=== PATIENT | female | born 1965 | race Caucasian/White ===

== ENCOUNTER 2023-01-04 06:01 | Inpatient (IN) ==
--- NOTE | 2022-12-21 15:18 | PAT Medication Instructions ---
Medication Instructions Date of Service December 21, 2022 Home Medications albuterol sulfate 90 mcg/actuation breath activated powder inhaler 1 inh inhalation QID PRN Wheezing atenolol 25 mg tablet 25 mg PO BID cholestyramine (with sugar) 4 gram oral powder 4 g PO QID cyclobenzaprine 5 mg tablet 5 mg PO BID famotidine 40 mg tablet 40 mg PO HS fluticasone furoate 200 mcg-vilanterol 25 mcg/dose inhalation powder (Breo Ellipta) 1 inh inhalation DAILY gabapentin 800 mg tablet 800 mg PO QID hydrocodone 10 mg-acetaminophen 325 mg tablet 0.5 tab PO Q6H lisinopril 20 mg tablet 20 mg PO QAM metformin 500 mg tablet 500 mg PO BID mirtazapine 15 mg tablet 15 mg PO HS omeprazole 40 mg capsule,delayed release 40 mg PO QAM quetiapine 400 mg tablet (Seroquel) 400 mg PO TID zolpidem 10 mg tablet (Ambien) 10 mg PO HS Continue as directed fluticasone furoate 200 mcg-vilanterol 25 mcg/dose inhalation powder (Breo Ellipta) 1 inh inhalation DAILY STOP taking 24 hours before surgery cholestyramine (with sugar) 4 gram oral powder 4 g PO QID DO NOT take the morning of surgery cyclobenzaprine 5 mg tablet 5 mg PO BID lisinopril 20 mg tablet 20 mg PO QAM metformin 500 mg tablet 500 mg PO BID Take morning of surgery With a small sip of water, OTHERWISE NOTHING TO EAT OR DRINK AFTER MIDNIGHT: albuterol sulfate 90 mcg/actuation breath activated powder inhaler 1 inh inhalation QID PRN Wheezing (use if needed and bring to hospital day of surgery) gabapentin 800 mg tablet 800 mg PO QID hydrocodone 10 mg-acetaminophen 325 mg tablet 0.5 tab PO Q6H (if needed) atenolol 25 mg tablet 25 mg PO BID omeprazole 40 mg capsule,delayed release 40 mg PO QAM Take evening before surgery albuterol sulfate 90 mcg/actuation breath activated powder inhaler 1 inh inhalation QID PRN Wheezing (use if needed) zolpidem 10 mg tablet (Ambien) 10 mg PO HS gabapentin 800 mg tablet 800 mg PO QID hydrocodone 10 mg-acetaminophen 325 mg tablet 0.5 tab PO Q6H (if needed) atenolol 25 mg tablet 25 mg PO BID cyclobenzaprine 5 mg tablet 5 mg PO BID metformin 500 mg tablet 500 mg PO BID famotidine 40 mg tablet 40 mg PO HS mirtazapine 15 mg tablet 15 mg PO HS Other Notes CHECK WITH PRESCRIBING PROVIDER FOR INSTRUCTIONS: quetiapine 400 mg tablet (Seroquel) 400 mg PO TID If you have any questions please call us at [phone] or [phone] or [phone] or [phone]
--- NOTE | 2022-12-28 13:44 | Anesthesiology Consultation ---
Date of Service December 28, 2022 Assessment & Plan (1) Encounter for pre-operative examination: - Check BSG AM DOS - COVID screening: Per assessment on 12/28: No known COVID-19 positive contacts or current COVID-19 related symptoms. Travel screen negative. At surgeon discretion if preop Covid testing being done. Chart Review Chart Review: Acceptable Risk for Surgery and Patient seen in Pre Admission Testing Teaching & Discussion Pre-Anesthesia Teaching/Discussion Notes: Instructed NPO after midnight before surgery,except medications with 15 cc of water. Medication instructions provided according to the PAT guidelines. History Surgery Operation Date: 01/04/23 12:25 Proposed Procedures p L3-L5 Decompression and Fusion Spinal Cord Monitoring - David Dimas, Height/Weight Height: 5 ft 6 in Weight: 90.9 kg Allergies Allergy/AdvReac Type Severity Reaction Status Date / Time aspirin Allergy Intermediate eyes Verified 12/14/22 11:13 swell/ hives morphine Allergy Intermediate itching Verified 12/14/22 11:13 Medications Home Medications Medication Instructions Recorded Confirmed Last Taken albuterol sulfate 90 mcg/actuation 1 inh inhalation QID PRN Wheezing 12/14/22 12/14/22 Unknown breath activated powder inhaler atenolol 25 mg tablet 25 mg PO BID 12/14/22 12/14/22 Unknown cholestyramine (with sugar) 4 gram 4 g PO QID 12/14/22 12/14/22 Unknown oral powder cyclobenzaprine 5 mg tablet 5 mg PO BID 12/14/22 12/14/22 Unknown famotidine 40 mg tablet 40 mg PO HS 12/14/22 12/14/22 Unknown fluticasone furoate 200 1 inh inhalation DAILY 12/14/22 12/14/22 Unknown mcg-vilanterol 25 mcg/dose inhalation powder (Breo Ellipta) gabapentin 800 mg tablet 800 mg PO QID 12/14/22 12/14/22 Unknown hydrocodone 10 mg-acetaminophen 0.5 tab PO Q6H 12/14/22 12/14/22 Unknown 325 mg tablet lisinopril 20 mg tablet 20 mg PO QAM 12/14/22 12/14/22 Unknown metformin 500 mg tablet 500 mg PO BID 12/14/22 12/14/22 Unknown mirtazapine 15 mg tablet 15 mg PO HS 12/14/22 12/14/22 Unknown omeprazole 40 mg capsule,delayed 40 mg PO QAM 12/14/22 12/14/22 Unknown release quetiapine 400 mg tablet (Seroquel) 400 mg PO TID 12/14/22 12/14/22 Unknown zolpidem 10 mg tablet (Ambien) 10 mg PO HS 12/14/22 12/14/22 Unknown Past Medical History Medical History Anxiety Chronic obstructive pulmonary disease Depression Diverticular disease GERD (gastroesophageal reflux disease) Hypertension Insomnia Neuropathy Legs (occasional) Osteoarthritis Pre-diabetes Schizophrenia Exercise / Class Metabolic Activity II 4-5 Yardwork/Stairs/Walk up hill Past Surgical History Surgical History History of appendectomy History of section x1 History of cholecystectomy History of colon resection R/t diverticulitis History of colonoscopy History of endoscopic sinus surgery History of hysterectomy History of tonsillectomy History of tooth extraction Nausea and vomiting after administration of anesthetic agent Past Anesthesia History No Hx of Anesthesia Complications (except PONV) and No Family Hx of Anesthesia Complications History of PONV No Hx of Motion Sickness and History of PONV Social History Smoking Status: Current every day smoker tobacco type: cigarettes Smoking cigarettes per day: 1 PPD (tobacco use x approximately 40 years) Do You Dip or Chew Tobacco: No Hx Alcohol Use: No Hx Substance Use: No substance use type: does not use Review of Systems Patient denies chest pain, shortness of breath, dyspnea on exertion, fever, chills, cough, wheezing, palpitations. Physical Exam Vital Signs VITALS BP 132/86 P 89 TEMP 97.9 SP02 95%RA RESP 16 PHYSICAL Mildly decreased cervical extension range of motion. Full TMJ range of motion. TMD 3.5 finger breaths Mallampati Score 2 Dentition: full upper/lower dentures Lungs: clear throughout to auscultation Cardiac: regular rate and rhythm, no murmurs noted Spine: normal Carotid arteries: negative bruit Extremities: no LE edema Lab Results Anesthesia Preop Results Results Anesthesia Widget: WBC 12.34 K/ul (4.8-10.8) H 12/28/22 Hgb 14.2 g/dl (12.0-16.0) 12/28/22 Hct 40.1 % (37.0-47.0) 12/28/22 Plt 304 K/uL (130-400) 12/28/22 PT 10.9 Seconds (9.0-12.0) 12/28/22 PTT 27.9 Seconds (21.0-31.0) 12/28/22 INR 1.0 (0.9-1.1) 12/28/22 HA1c 6.1 % (4.5-5.6) H 12/28/22 Urine Color Yellow 12/28/22 Urine Appearance Clear (Clear) 12/28/22 Urine pH 6.0 (4.5-7.5) 12/28/22 Urine Specific [place] 1.005 (1.000-1.030) 12/28/22 Urine Protein Negative (Negative) 12/28/22 Urine Glucose (UA) Negative (Negative) 12/28/22 Urine Ketones Negative (Negative) 12/28/22 Urine Blood Negative (Negative) 12/28/22 Urine Nitrite Negative (Negative) 12/28/22 Urine Bilirubin Negative (Negative) 12/28/22 Urine Urobilinogen Negative (Negative) 12/28/22 Urine Leukocyte Esterase Negative (Negative) 12/28/22 Blood Type O Positive 12/28/22 Antibody Screen NEGATIVE 12/28/22 Testing Laboratory Results 12/22/22 SODIUM 134 POTASSIUM 4.6 CHLORIDE 103 CO2 21 BUN 5 CREATININE 0.56 GLUCOSE 79 Electrocardiogram Date: 12/17/22 SR with 88bpm. Short CT interval. "ECG without significant abnormalities" Chest X-Ray Date: 12/28/22 FINDINGS: Lung volumes are normal. There is no consolidation to suggest pneumonia. Minimal left basilar opacity favors atelectasis. There is no pneumothorax or pleural effusion. Cardiac size is normal. Mediastinal contours are normal. There is no evidence for pulmonary edema. IMPRESSION: No acute cardiopulmonary findings. COVID-19 Risk Screen Screening Information COVID-19 Screen Date: 12/28/22 Exposure 21 Days Family/Household +COVID Last 21 Days: No Exposure 10 Days Any COVID Exposure Last 10 Days: No Symptoms Last 10 Days Experienced COVID Sx Last 10 Days: No + COVID 0-90 Days COVID + in Last 0-90 Days: No
[~2023-01-04 06:01] MED LIST: ACETAMINOPHEN 500 MG TAB PO SCH; CeleBREX 200 MG CAP PO SCH; GABAPENTIN 600 MG DOSE PO SCH; LR 15ML/HR IV SCH; ceFAZolin 2000MG 2,000 MG/15 ML SYR IV SCH
[2023-01-04] MEDS ORDERED: LIDOCAINE 2% MPF LOCAL 5 ML VIAL ONE (06:35)
[2023-01-04] MEDS ORDERED: DEXAMETHASONE SOD INJ 4 MG/ML VIAL ONE (06:35)
[2023-01-04] MEDS ORDERED: ONDANSETRON INJ 2 MG/ML 2 ML VIAL ONE (06:35)
[2023-01-04] MEDS ORDERED: PROPOFOL IV EMULSION 10 MG/ML 20 ML VIAL IV ONE (06:35)
[2023-01-04] MEDS ORDERED: MIDAZOLAM HCL 1 MG/ML 2ML VIAL ONE (06:36)
[2023-01-04] MEDS ORDERED: HYDROmorphone INJ 2 MG/ML SYR/VIAL ONE (06:36)
[2023-01-04] MEDS ORDERED: fentaNYL citrate PF 100 MCG/2 ML VIAL ONE (06:36)
[2023-01-04] MEDS ORDERED: SCOPOLAMINE 1 MG TDSY TD ONE (07:01)
[2023-01-04] MEDS ORDERED: ePHEDrine sulfate 50 MG/ML AMP IV PRN (07:02)
[2023-01-04] MEDS ORDERED: ONDANSETRON INJ 2 MG/ML 2 ML VIAL IV PRN (07:02)
[2023-01-04] MEDS ORDERED: ATROPINE SULFATE 0.1 MG/ML 10ML SYR IV PRN (07:02)
[2023-01-04] MEDS ORDERED: FAMOTIDINE/PF 20 MG/2 ML VIAL IV ONE (07:26)
--- NOTE | 2023-01-04 07:29 | History & Physical Bridge Note ---
Date of Service January 04, 2023 History & Physical Bridge Note I have examined the patient, reviewed the History & Physical and in the interval since the performance of the History & Physical I have noted the following changes of clinical significance: no changes noted
--- NOTE | 2023-01-04 07:30 | History & Physical Report ---
Date of Service January 04, 2023 Assessment & Plan (1) Neurogenic claudication due to lumbar spinal stenosis: Plan: L3-L5 decompression and fusion History of Present Illness Chief Complaint: Back and bilateral leg pain Primary Care Provider: NO PCP This is a 57-year-old female who presents with chronic persistent back and leg pain after failing course of nonoperative care she is here for surgical intervention. Allergies Allergy/AdvReac Type Severity Reaction Status Date / Time aspirin Allergy Intermediate eyes Verified 01/04/23 06:36 swell/ hives morphine Allergy Intermediate itching Verified 01/04/23 06:36 Home Medications Medication Instructions Recorded Confirmed Type albuterol sulfate 90 mcg/actuation 1 inh inhalation QID PRN Wheezing 12/14/22 01/04/23 History breath activated powder inhaler atenolol 25 mg tablet 25 mg PO BID 12/14/22 01/04/23 History cholestyramine (with sugar) 4 gram 4 g PO QID 12/14/22 01/04/23 History oral powder famotidine 40 mg tablet 40 mg PO HS 12/14/22 01/04/23 History fluticasone furoate 200 1 inh inhalation DAILY 12/14/22 01/04/23 History mcg-vilanterol 25 mcg/dose inhalation powder (Breo Ellipta) gabapentin 800 mg tablet 800 mg PO QID 12/14/22 01/04/23 History hydrocodone 10 mg-acetaminophen 0.5 tab PO Q6H 12/14/22 01/04/23 History 325 mg tablet lisinopril 20 mg tablet 20 mg PO QAM 12/14/22 01/04/23 History metformin 500 mg tablet 500 mg PO BID 12/14/22 01/04/23 History mirtazapine 15 mg tablet 15 mg PO HS 12/14/22 01/04/23 History omeprazole 40 mg capsule,delayed 40 mg PO QAM 12/14/22 01/04/23 History release quetiapine 400 mg tablet (Seroquel) 400 mg PO TID 12/14/22 01/04/23 History zolpidem 10 mg tablet (Ambien) 10 mg PO HS 12/14/22 01/04/23 History Past Med/Surg History Medical History Anxiety Chronic obstructive pulmonary disease Depression Diverticular disease GERD (gastroesophageal reflux disease) Hypertension Insomnia Neuropathy Legs (occasional) Osteoarthritis Pre-diabetes Schizophrenia Surgical History History of appendectomy History of section x1 History of cholecystectomy History of colon resection R/t diverticulitis History of colonoscopy History of endoscopic sinus surgery History of hysterectomy History of tonsillectomy History of tooth extraction Nausea and vomiting after administration of anesthetic agent Social History Smoking Status: Current every day smoker Cigarettes Per Day: 1 PPD (tobacco use x approximately 40 years); Second Hand Exposure: No; Do You Dip or Chew Tobacco: No; Tobacco Cessation Education Requested by Patient: No Hx Alcohol Use: No Hx Substance Use: No Preferred Language: Serbian Communication Ability: Effective 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
[2023-01-04] MEDS ORDERED: ceFAZolin 330 MG/ML 1 GM VIAL ONE (07:36)
[2023-01-04] MEDS ORDERED: BUPIVACAINE/EPINEPHRINE 0.25% 1:200,000 30 ML VIAL ONE (07:36)
[2023-01-04] MEDS ORDERED: FLOSEAL HEMOSTATIC MATRIX 10ML TOP ONE (08:25)
[2023-01-04] MEDS ORDERED: SUGAMMADEX SODIUM 200 MG/2 ML VIAL IV ONE (09:31)
[2023-01-04] MEDS ORDERED: ROCURONIUM BROMIDE 10 MG/ML 5 ML VIAL IV ONE ×9 (09:31)
--- NOTE | 2023-01-04 09:47 | Operative Report ---
Post Operative Report Pre & Post Diagnosis Operation Date: 01/04/23 07:45 Pre-Op Diagnosis: (1) Neurogenic claudication due to lumbar spinal stenosis Post-Op Diagnosis: (1) Neurogenic claudication due to lumbar spinal stenosis I identified the patient and participated in the time-out.: Yes Procedure Operation Date: 01/04/23 07:45 Actual Procedures #1 lumbar decompression bilateral medial facetectomies and foraminotomies L2-L3, L3-L4 and L4-5. #2 posterior spinal fusion L3-L4 L4-5. #3 placement posterior instrumentation L3-L4 L4-L5. #4 interbody fusion L3-L4 L4-L5 #5 placement of Spira 14 x 26 mm cage at L3-L4 and L4-L5. #6 placement locally harvested morselized autograft posterior gutters. #7 placement of I factor bone of the talus in the interbody space and posterior lateral gutters. Surgeon David Dimas, DO Store Protection Specialist Christal Fonseca Estimated Blood Loss 50 Findings See Below The patient is 5 foot 6 weighing over 87 kg with BMI in excess of 31. Patient's body habitus did contribute to significant technical difficulty requiring her deeper retractors longer instruments in order to perform her procedure. This had at least 50% increased operative time. Specimens None Indications This is a 57-year-old female who presents above-mentioned diagnosis after failing course of nonoperative care is here for surgical intervention. Description of Procedure Patient met with identified informed consent obtained. Patient was then taken to the operative suite underwent patient placed in a prone position on the [place] table top Enrique frame. All bony prominences well-padded eyes inspected to ensure no external pressure placed upon them. This point lumbar spine was prepped and draped in a sterile fashion. Sharp dissection with the assistance of Bovie cautery performed down to and exposing the lamina and transverse processes of L3-L4-L5. From caudal to cephalad fashion complete laminectomy of L 4 L3 and partial laminectomy of L2 was performed including bilateral medial facetectomies and foraminotomies addressing significant spinal stenosis and facet hypertrophy. Obvious instability was noted. Pedicle screws then placed in L3-L4-L5 bilaterally with assistance of fluoroscopy and appropriately sized joan placed. By way of a transforaminal approach on the right complete discectomy of L4-L5 was performed endplates curetted to subcortical bleeding bone and a 14 x 26 mm Spira cage with I factor tapped the position. Then proceeded to L3-L4 and again by way of a transforaminal approach on the right complete discectomy performed endplates curetted to subcortically bone and a 14 x 26 mm Spira cage with I factor tapped in position. The rods were then compressed locked in final position bilaterally. The transverse processes of L3 L4-5 burred to subcortical bleeding bone. I factor amount of the test and locally harvested morselized autograft was placed in the posterior gutters. 15 round JOHN drain inserted. The incision was then closed with 1 Vicryl the fascia 2-0 Vicryl subcutaneously and 4 Monocryl for final skin closure. Steri-Strip sterile dressing placed. Patient awakened taken to PACU stable condition. Please note spinal cord monitoring was utilized at the procedure no changes noted. Lastly Christal Fonseca was present at the entire surgery involved the patient positioning complex portions of the surgery and final skin closure. I attest to the content of the Intraoperative Record and any orders documented therein. Any exceptions are noted below.
--- NOTE | 2023-01-04 10:13 | Fluoroscopy Report ---
INTRAOPERATIVE RADIOGRAPHS CLINICAL HISTORY: L3-L5 spinal fusion. Fluoro time: 24 seconds Ka,r: 21.37 mGy FINDINGS: 3 spot fluoroscopic views of the lumbar spine are presented. There has been discectomy at L 3-L4 and L4-L5 with laminectomy and posterior fusion at L3-L5. Interpedicular screws are present at a ll levels. The orthopedic hardware appears intact. IMPRESSION: Intraoperative images from lumbar spinal fusion surgery as above. Electronically signed by: Naga Camacho M.D. 01/04/2023 10:11 AM
[2023-01-04] MEDS: fentaNYL citrate PF 100 MCG/2 ML VIAL IV PRN ×4 (10:17→10:32)
[2023-01-04] MEDS: HYDROmorphone INJ 1 MG/ML SYRINGE IV PRN ×6 (10:37→17:44)
--- NOTE | 2023-01-04 10:52 | Anesthesiology Progress Note ---
Date of Service January 04, 2023 Anesthesia Post Procedure Vital Signs Vital Signs: Temp Pulse Resp BP Pulse Ox O2 Del Method O2 Flow Rate 01/04/23 10:45 97 H 12 128/67 98 Nasal Cannula 2 01/04/23 10:35 100 H 10 L 126/88 91 Room Air 01/04/23 10:25 96 H 12 112/94 100 Oxymask 5 01/04/23 10:15 96.8 F L 99 H 13 128/98 100 Oxymask 5 01/04/23 10:05 96.8 F L 100 H 13 122/87 100 Oxymask 5 01/04/23 06:34 98.1 F 94 H 20 127/71 93 Room Air Pain Intensity Lower Back: Pain Intensity: 4 Transfer of Care Handoff Completed per policy Notes Mental Status: alert / awake / arousable and participated in evaluation Patient Amnestic to Procedure: Yes Nausea / Vomiting: adequately controlled Pain: adequately controlled Airway Patency, RR, SpO2: stable & adequate BP & HR: stable & adequate Hydration State: stable & adequate Anesthetic Complications: no major complications apparent and Pt Satisfied with anesthetic care
[2023-01-04] MEDS ORDERED: LORazepam 2 MG/1 ML VIAL IV PRN (11:36)
[2023-01-04] MEDS ORDERED: ALUMINUM/MAGNESIUM SUSP 30 ML UDC PO PRN (11:36)
[2023-01-04] MEDS ORDERED: PROMETHAZINE HCL 12.5 MG in SODIUM CHLORIDE 0.9% 50 ML IV PRN (11:36)
[2023-01-04] MEDS ORDERED: HYDROmorphone INJ 0.5 MG/0.5 ML SYR IV PRN (11:36)
[2023-01-04] MEDS ORDERED: PHARMACY GLYCEMIC MGMT CONSULT PRN (11:36)
[2023-01-04] MEDS ORDERED: DO NOT ADMINISTER PNEUMOCOCCAL VACCINE PRN (11:36)
[2023-01-04] MEDS ORDERED: traMADol HCL 50 MG TABLET PO PRN (11:36)
[2023-01-04] MEDS ORDERED: bisacodyL 10 MG SUPP PR PRN (11:36)
[2023-01-04] MEDS ORDERED: ACETAMINOPHEN 1,000 MG/100 ML VIAL IV PRN (11:36)
[2023-01-04] MEDS ORDERED: LORazepam 0.5 MG TAB PO PRN (11:36)
[2023-01-04] MEDS ORDERED: FAMOTIDINE 20 MG TAB PO PRN (11:36)
[2023-01-04] MEDS ORDERED: hydrOXYzine HCl 25 MG TAB PO PRN (11:36)
[2023-01-04] MEDS ORDERED: ALBUTEROL HFA INHALER 8.5 GM INH PRN (11:36)
[2023-01-04] MEDS ORDERED: NALOXONE HCL 0.4 MG/1 ML VIAL/CARP IV PRN (11:36)
[2023-01-04] MEDS ORDERED: DO NOT ADMINISTER FLU VACCINE PRN (11:36)
[2023-01-04] MEDS ORDERED: diphenhydrAMINE Capsule 25 MG CAP PO PRN (11:36)
[2023-01-04] MEDS ORDERED: SOD PHOSPHATE/SOD BIPHOSPHATE ENEMA 132 ML BTL PR PRN (11:36)
[2023-01-04] MEDS: SODIUM CHLORIDE 0.9% 1000ML 1,000 ML IV SCH (11:51)
[2023-01-04] MEDS ORDERED: LANTUS PER UNIT CHARGE SC STA (12:10)
[2023-01-04] MEDS ORDERED: GLUCOSE 40% GEL 15 GM TUBE PO PRN (12:15)
[2023-01-04] MEDS ORDERED: CARBOHYDRATES FOR HYPOGLYCEMIA PO PRN (12:15)
[2023-01-04] MEDS ORDERED: GLUCOSE 10 TAB/TUBE PO PRN (12:15)
[2023-01-04] MEDS ORDERED: DEXTROSE 50% 50 ML SYRINGE IV PRN (12:15)
[2023-01-04] MEDS ORDERED: GLUCAGON FOR INJ 1 MG VIAL IM PRN (12:15)
[2023-01-04] MEDS: NICOTINE 14 MG/24 HR PATCH TD SCH (12:33)
[2023-01-04] MEDS: QUEtiapine FUMARATE 200 MG TAB PO SCH ×2 (12:34→19:52)
[2023-01-04] MEDS: GABAPENTIN 800 MG TAB PO SCH ×3 (12:34→19:49)
[2023-01-04] MEDS: CHOLESTYRAMINE LIGHT 4 GM PKT PO SCH ×4 (12:34→21:04)
--- NOTE | 2023-01-04 12:40 | Hospitalist Consultation ---
Date of Consultation January 04, 2023 Assessment & Plan (1) Neurogenic claudication due to lumbar spinal stenosis: POD#0 L3-L5 decompression and fusion by Dr. Dimas Activity and wound care orders as per ortho Pain control with bowel regimen PT/OT Monitor H/H for acute blood loss anemia and transfuse blood products PRN EBL 50cc (2) Hypertension: BP controlled, continue atenolol and lisinopril (3) Pre-diabetes: Hgb A1c 6.1 12/2022 Hold metformin Glycemic pharmacy consulted by primary service (4) Tobacco abuse: Nicotine patch offered, patient declined (5) Anxiety: (6) Depression: Stable, continue home meds (7) GERD (gastroesophageal reflux disease): Continue PPI and H2 jeannette DVT PROPHYLAXIS Teds/SCDs as per spine Ortho Patient seen in collaboration with Dr. Ang. Thank you for this consultation. We will follow the patient with you during their hospital stay. You can reach a member of the [facility] Hospitalist Team 29/03 via the [facility] Hospitalist role in [place] [employer]. I spent a total of 45 minutes coordinating, documenting, and providing care for this patient excluding time spent in the performance of separately billed services. This included personally reviewing all current laboratories and imaging studies, medication reconciliation, outpatient chart review, and discussion with specialists. Supervising Physician Co-Signing Physician Notes Neuro: AAOx3, Perrla HEENT: head atraumatic, Normocephalic CV: S1/S2 +.no murmurs. Resp: Lungs air entry present bilaterally . no crackles. GI: Abdomen mildly distended Musculoskeletal:no pain dowell catheter+ Skin: (-) rashes , (-) erythema. scds in place Psych: anxious patient is in pain post proceedure L3-L5 spine procedure and is requesting pain med she also wants her cholestyramine to be given now. will continue to follow this patient with the orthopedic team. History of Present Illness Reason for Consultation: Postop medical management Requesting Physician: Dr. Dimas Attending Physician: David Dimas DO History of Present Illness 57-year-old female with PMH HTN, prediabetes, anxiety, depression, tobacco abuse, COPD, GERD, and other problems listed below who is s/p L3-L5 decompression and fusion today by Dr. Dimas. Postoperatively, the patient is reporting pain #7/10. She denies numbness, tingling, weakness to lower extremities. No chest pain or shortness of breath. Denies lightheadedness and dizziness. No abdominal pain or nausea. Dowell catheter is in place draining clear yellow urine. Allergies Allergy/AdvReac Type Severity Reaction Status Date / Time aspirin Allergy Intermediate eyes Verified 01/04/23 06:36 swell/ hives morphine Allergy Intermediate itching Verified 01/04/23 06:36 Home Medications Medication Instructions Recorded Confirmed Type albuterol sulfate 90 mcg/actuation 1 inh inhalation QID PRN Wheezing 12/14/22 01/04/23 History breath activated powder inhaler atenolol 25 mg tablet 25 mg PO BID 12/14/22 01/04/23 History cholestyramine (with sugar) 4 gram 4 g PO QID 12/14/22 01/04/23 History oral powder famotidine 40 mg tablet 40 mg PO HS 12/14/22 01/04/23 History fluticasone furoate 200 1 inh inhalation DAILY 12/14/22 01/04/23 History mcg-vilanterol 25 mcg/dose inhalation powder (Breo Ellipta) gabapentin 800 mg tablet 800 mg PO QID 12/14/22 01/04/23 History hydrocodone 10 mg-acetaminophen 0.5 tab PO Q6H 12/14/22 01/04/23 History 325 mg tablet lisinopril 20 mg tablet 20 mg PO QAM 12/14/22 01/04/23 History metformin 500 mg tablet 500 mg PO BID 12/14/22 01/04/23 History mirtazapine 15 mg tablet 15 mg PO HS 12/14/22 01/04/23 History omeprazole 40 mg capsule,delayed 40 mg PO QAM 12/14/22 01/04/23 History release quetiapine 400 mg tablet (Seroquel) 400 mg PO TID 12/14/22 01/04/23 History zolpidem 10 mg tablet (Ambien) 10 mg PO HS 12/14/22 01/04/23 History Patient History Medical History (Updated 01/04/23 @ 12:36 by ILIANA Rader) Anxiety Chronic obstructive pulmonary disease Depression Diverticular disease GERD (gastroesophageal reflux disease) Hypertension Insomnia Neuropathy Legs (occasional) Osteoarthritis Pre-diabetes Schizophrenia Tobacco abuse Surgical History History of appendectomy History of section x1 History of cholecystectomy History of colon resection R/t diverticulitis History of colonoscopy History of endoscopic sinus surgery History of hysterectomy History of tonsillectomy History of tooth extraction Nausea and vomiting after administration of anesthetic agent Social History Smoking Status: Current every day smoker Cigarettes Per Day: 1 PPD (tobacco use x approximately 40 years); Second Hand Exposure: No; Do You Dip or Chew Tobacco: No; Tobacco Cessation Education Requested by Patient: No Hx Alcohol Use: No Hx Substance Use: No Preferred Language: Faroese Communication Ability: Effective 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 Ang's addendum for physical exam Results & Data Results & Data Vital Signs (Past 12 Hours) Vital Signs Temp Pulse Resp BP Pulse Ox O2 Del Method O2 Flow Rate 01/04/23 11:54 36.7 C 102 H 16 111/75 97 Nasal Cannula 2 01/04/23 11:45 36.9 C 101 H 110/78 93 Nasal Cannula 2 01/04/23 11:05 98 H 13 104/77 98 Nasal Cannula 2 01/04/23 10:55 36.2 C L 97 H 12 113/76 98 Nasal Cannula 2 01/04/23 10:45 97 H 12 128/67 98 Nasal Cannula 2 01/04/23 10:35 100 H 10 L 126/88 91 Room Air 01/04/23 10:25 96 H 12 112/94 100 Oxymask 5 01/04/23 10:15 36 C L 99 H 13 128/98 100 Oxymask 5 01/04/23 10:05 36 C L 100 H 13 122/87 100 Oxymask 5 01/04/23 06:34 36.7 C 94 H 20 127/71 93 Room Air
--- NOTE | 2023-01-04 13:21 | Pharmacy Report ---
Pharmacy Glycemic Short Note 2 - Date of Service January 04, 2023 - Glycemic Short BSG Results (Last 24 hours): 01/04/23 01/04/23 01/04/23 06:47 10:04 12:00 POC Glucose 140 H 137 H 158 H OUTPATIENT ANTIDIABETIC REGIMEN: * Metformin 500 mg PO BIDM * HbA1c: 6.1% (12/28/22) ASSESSMENT: * 57 yo F admitted postoperatively on 01/04/23 following a L3-L5 decompression and fusion. Pharmacy has been consulted to assist with inpatient glycemic management. Patient is a well controlled Type 2 diabetic as an outpatient. Please refer to outpatient regimen and most recent HbA1c above. * Preop BSG was 140 mg/dL while postop BSGs were 137-158 mg/dL. Received 12 mg of IV dexamethasone intraoperatively. Will continue on 6 mg of IV dexamethasone daily for the next 3 days. Ordered a T2DM diet. Will monitor how patient tolerates diet postop. * Giving a full weight/stress of 2 basal dose now to cover steroids. Reassess basal dose in the AM. Starting bolus based on weight/stress of 3. Added an overnight check for tonight. PLAN FOR INPATIENT GLYCEMIC CONTROL: * Hold outpatient oral diabetes medications * Basal insulin * Lantus 30 units SC x 1 * Bolus insulin * NovoLog per scale ACHS or Q6hrs while NPO * Goal Range: Low 110 mg/dL - High 140 mg/dL * Correction Factor: 20 mg/dL/unit * Nutritional / Prandial insulin per carb ratio of 1 unit per 7 grams CHO consumed
[2023-01-04] MEDS ORDERED: CHOLESTYRAMINE LIGHT 4 GM PKT PO SCH (14:00)
[2023-01-04] MEDS: INSULIN ASPART PER UNIT CHARGE SC SCH ×3 (14:18→21:33)
[2023-01-04] MEDS: oxyCODONE HCL IR 5 MG TAB (IMMEDIATE RELEASE) PO PRN ×2 (14:34→19:45)
[2023-01-04] MEDS: CHECK SCOPOLAMINE PATCH PLACEMENT SCH (16:43)
[2023-01-04] MEDS: ceFAZolin 2000MG 2,000 MG/15 ML SYR IV SCH (17:43)
[2023-01-04] MEDS: DOCUSATE SODIUM/SENNA 50/8.6MG TAB PO SCH (19:50)
[2023-01-04] MEDS: FAMOTIDINE 40 MG TABLET PO SCH (19:51)
[2023-01-04] MEDS: MIRTAZAPINE TAB 15 MG TAB PO SCH (19:51)
[2023-01-04] MEDS: ZOLPIDEM TARTRATE 10 MG TAB PO SCH (20:01)
[2023-01-04] MEDS: ATENOLOL 25 MG TABLET PO SCH (21:04)
[2023-01-05] MEDS: ceFAZolin 2000MG 2,000 MG/15 ML SYR IV SCH (01:07)
[2023-01-05] MEDS: oxyCODONE HCL IR 5 MG TAB (IMMEDIATE RELEASE) PO PRN ×4 (01:07→17:58)
[2023-01-05] MEDS: SODIUM CHLORIDE 0.9% 1000ML 1,000 ML IV SCH (01:08)
[2023-01-05] MEDS: CHECK SCOPOLAMINE PATCH PLACEMENT SCH ×3 (01:51→17:41)
[2023-01-05] MEDS ORDERED: INSULIN ASPART PER UNIT CHARGE SC ONE (02:00)
[2023-01-05] MEDS: HYDROmorphone INJ 1 MG/ML SYRINGE IV PRN ×2 (02:34→05:49)
[2023-01-05] MEDS: POLYETHYLENE (MIRALAX) 17 GM PACK PO SCH ×3 (04:59→17:26)
[2023-01-05 08:10] LABS: Hematocrit (blood only) 38.1 % (37.0-47.0); Mean Corpuscular Hemoglobin 32.2 pg (25.0-34.0); Mean Corpuscular Hgb Conc 34.1 g/dL (32.0-36.0); Mean Corpuscular Volume 94.3 fL (80.0-100.0); Platelet Count 256 K/uL (130-400); RDW Coefficient of Variation 13.2 % (11.5-14.5); RDW Standard Deviation 45.8 fL (36.4-46.3); Red Blood Count 4.04 M/uL (4.20-5.40); White Blood Count 15.97 K/ul (4.8-10.8)
[2023-01-05] MEDS: dexAMETHasone 6 MG in SYRINGE 0 ML IV SCH (08:15)
[2023-01-05] MEDS: CHOLESTYRAMINE LIGHT 4 GM PKT PO SCH ×4 (08:16→22:54)
[2023-01-05] MEDS: QUEtiapine FUMARATE 200 MG TAB PO SCH ×4 (08:16→20:51)
[2023-01-05] MEDS: GABAPENTIN 800 MG TAB PO SCH ×4 (08:16→20:51)
[2023-01-05] MEDS: PANTOprazole 40 MG TAB PO SCH (08:17)
[2023-01-05] MEDS: FLUTICASONE/VILANTEROL 200/25MCG 14 PUFFS/INHALER INH SCH (08:18)
[2023-01-05] MEDS: NICOTINE 14 MG/24 HR PATCH TD SCH (08:18)
[2023-01-05 08:31] LABS: Calcium 8.7 mg/dl (8.6-10.3); Potassium 3.8 mmol/L (3.5-5.1)
[2023-01-05 08:37] LABS: BUN Creatinine Ratio 7.9 (10-20); Creatinine Clr Calc Pharmacy 111.2 ml/min; Est GFR (African American) 116.2 ml/min; Est GFR (Non-African American) 100.3 ml/min
[2023-01-05 08:51] LABS: Basophils # (auto) 0.09 K/uL (0-0.2); Basophils % (auto) 0.6 %; Eosinophils # (auto) 0.07 K/uL (0-0.50); Eosinophils % (auto) 0.4 %; Immature Granulocytes # (auto) 0.08 K/uL (0.01-0.20); Immature Granulocytes % (auto) 0.5 %; Lymphocytes # (auto) 5.38 K/uL (1.2-3.4); Lymphocytes % (auto) 33.7 %; Monocytes # (auto) 1.75 K/uL (0.11-0.59); Neutrophils % (auto) 53.8 %
[2023-01-05] MEDS ORDERED: lisinopril 20 MG TAB PO SCH (09:00)
[2023-01-05] MEDS: LANTUS PER UNIT CHARGE SC SCH (09:03)
[2023-01-05] MEDS: INSULIN ASPART PER UNIT CHARGE SC SCH ×4 (09:03→21:34)
[2023-01-05] MEDS: ATENOLOL 25 MG TABLET PO SCH (09:04)
--- NOTE | 2023-01-05 10:40 | Pharmacy Report ---
Pharmacy Glycemic Short Note 2 - Date of Service January 05, 2023 - Glycemic Short BSG Results (Last 24 hours): 01/04/23 01/04/23 01/04/23 12:00 16:51 20:47 Glucose POC Glucose 158 H 150 H 111 H 01/05/23 01/05/23 01/05/23 03:26 07:56 07:57 Glucose 118 H POC Glucose 113 H 111 H OUTPATIENT ANTIDIABETIC REGIMEN: * Metformin 500 mg PO BIDM * HbA1c: 6.1% (12/28/22) ASSESSMENT: 01/05: * Lorie received 39 units of insulin postop yesterday, 30 units basal + 9 units bolus. BSGs were: [phone] mg/dL. * Fasting BSG controlled at 111 mg/dL this AM. Tolerating diet. * Given reduced dose of IV dexamethasone that will be administered over the next 3 days, will empirically reduced basal dose. Empirically reduced bolus parameters as well given trend down in BSG last evening. 01/04: * 57 yo F admitted postoperatively on 01/04/23 following a L3-L5 decompression and fusion. Pharmacy has been consulted to assist with inpatient glycemic management. Patient is a well controlled Type 2 diabetic as an outpatient. Please refer to outpatient regimen and most recent HbA1c above. * Preop BSG was 140 mg/dL while postop BSGs were 137-158 mg/dL. Received 12 mg of IV dexamethasone intraoperatively. Will continue on 6 mg of IV dexamethasone daily for the next 3 days. Ordered a T2DM diet. Will monitor how patient tolerates diet postop. * Giving a full weight/stress of 2 basal dose now to cover steroids. Reassess basal dose in the AM. Starting bolus based on weight/stress of 3. Added an overnight check for tonight. PLAN FOR INPATIENT GLYCEMIC CONTROL: * Hold outpatient oral diabetes medications * Basal insulin * Lantus 20 units SC daily x 3 days (Give with IV Dexamethasone - hold and call pharmacy if dexamethasone held/discontinued) * Bolus insulin * NovoLog per scale ACHS or Q6hrs while NPO * Goal Range: Low 110 mg/dL - High 140 mg/dL * Correction Factor: 25 mg/dL/unit * Nutritional / Prandial insulin per carb ratio of 1 unit per 8 grams CHO consumed
--- NOTE | 2023-01-05 11:46 | Hospitalist Progress Note ---
Date of Service January 05, 2023 Assessment & Plan (1) Neurogenic claudication due to lumbar spinal stenosis: Plan: POD#1 L3-L5 decompression and fusion by Dr. Dimas Labs reviewed; WBC count elevated to 15.97. [id number]; stable. Patient noted to have 1 spike of fever at 11:25 AM today; 38.5 C. Continue pain control, bowel regimen PT OT eval. If patient has another episode of fever( > 38C) ; will obtain blood culture, chest x-ray and urinalysis. Hold off antibiotic for now; monitor for fever. (2) Hypertension: Plan: Blood pressure noted to be on lower side; Hold off on atenolol and lisinopril for today. (3) Pre-diabetes: Plan: Hgb A1c 6.1 12/2022 Hold metformin Glycemic pharmacy consulted by primary service (4) Tobacco abuse: Plan: Nicotine patch offered, patient declined (5) Anxiety: (6) Depression: Plan: On Mirtazapine; continue (7) GERD (gastroesophageal reflux disease): Plan: Continue PPI and H2 jeannette DVT PROPHYLAXIS Teds/SCDs as per spine Ortho Thank you for this consultation. We will follow the patient with you during their hospital stay. You can reach a member of the [facility] Hospitalist Team 29/03 via the [facility] role in [place] [employer]. Please note the above document was generated using voice recognition software. It may contain grammatical, syntax or spelling errors. Any formal questions or concerns about the content, text or information contained within the body of this dictation should be directly addressed to the provider for clarification Admission and Anticipated Discharge Date Admission Date: January 04, 2023 Subjective Patient seen and examined at bedside. She was just moved from bed to the chair and appears to be tired and in pain. Review of Systems Review of Systems: All systems reviewed & are unremarkable except as noted in Subjective Physical Exam Physical Exam: Constitutional: Awake, reports significant pain on operating site. Respiratory: normal respiratory effort, lungs clear to auscultation, no wheeze, rales, rhonchi. Normal insp/exp effort, no accessory muscle use Cardiovascular: RRR, no murmur, no edema Vessels: no JVD or carotid bruit Chest: normal inspection of chest Abdomen: normal bowel sounds, soft, nontender, no hepatosplenomegaly Musculoskeletal: no cyanosis or clubbing, extremities motor strength 5/5. Back incision clean dry and intact. Skin: no rashes, warm and dry normal turgor Neurologic: PERRL, EOMI, accommodation nl, no face palsy, no dysarthria CN's II- XI intact bilaterally and moves all extremities Psychiatric: A+Ox3, euthymic affect Lymphatic: no cervical or axillary lymphadenopathy : deferred Results & Data Results & Data Vital Signs (Past 12 Hours) Vital Signs Temp Pulse Pulse Resp BP BP Pulse Ox 01/05/23 11:25 92 01/05/23 11:23 38.5 C H 105 H 104/73 87 L 01/05/23 08:05 01/05/23 07:34 37.0 C 109 H 16 107/78 91 01/05/23 03:03 36.7 C 89 18 106/82 96 O2 Del Method O2 Flow Rate 01/05/23 11:25 Nasal Cannula 2 01/05/23 11:23 Room Air 01/05/23 08:05 Room Air 01/05/23 07:34 Room Air 01/05/23 03:03 Room Air Laboratory Results Laboratory Results WBC 15.97 K/ul (4.8-10.8) H 01/05/23 07:56 RBC 4.04 M/uL (4.20-5.40) L 01/05/23 07:56 Hgb 13.0 g/dl (12.0-16.0) 01/05/23 07:56 Hct 38.1 % (37.0-47.0) 01/05/23 07:56 MCV 94.3 fL (80.0-100.0) 01/05/23 07:56 MCH 32.2 pg (25.0-34.0) 01/05/23 07:56 MCHC 34.1 g/dL (32.0-36.0) 01/05/23 07:56 RDW Std Deviation 45.8 fL (36.4-46.3) 01/05/23 07:56 RDW Coeff of Carmela 13.2 % (11.5-14.5) 01/05/23 07:56 Plt Count 256 K/uL (130-400) 01/05/23 07:56 MPV 9.0 fL (9.4-12.4) L 01/05/23 07:56 Immature Gran % (Auto) 0.5 % 01/05/23 07:56 Neut % (Auto) 53.8 % 01/05/23 07:56 Lymph % (Auto) 33.7 % 01/05/23 07:56 [place] % (Auto) 11.0 % 01/05/23 07:56 Eos % (Auto) 0.4 % 01/05/23 07:56 Baso % (Auto) 0.6 % 01/05/23 07:56 Neut # (Auto) 8.60 K/uL (1.40-6.50) H 01/05/23 07:56 Lymph # (Auto) 5.38 K/uL (1.2-3.4) H 01/05/23 07:56 [place] # (Auto) 1.75 K/uL (0.11-0.59) H 01/05/23 07:56 Eos # (Auto) 0.07 K/uL (0-0.50) 01/05/23 07:56 Baso # (Auto) 0.09 K/uL (0-0.2) 01/05/23 07:56 Immature Gran # (Auto) 0.08 K/uL (0.01-0.20) 01/05/23 07:56 Sodium 137 mmol/L (136-145) 01/05/23 07:56 Potassium 3.8 mmol/L (3.5-5.1) 01/05/23 07:56 Chloride 103 mmol/L (98-107) 01/05/23 07:56 Carbon Dioxide 27 mmol/L (21-32) 01/05/23 07:56 Anion Gap 7 (3-11) 01/05/23 07:56 BUN 5 mg/dl (6-23) L 01/05/23 07:56 Creatinine 0.63 mg/dl (0.6-1.2) 01/05/23 07:56 Est Cr Clr Drug Dosing 111.2 ml/min 01/05/23 07:56 Est GFR ( Amer) 116.2 ml/min 01/05/23 07:56 Est GFR (Non-Af Amer) 100.3 ml/min 01/05/23 07:56 BUN/Creatinine Ratio 7.9 (10-20) L 01/05/23 07:56 Glucose 118 mg/dl (70-99(Fasting)) H 01/05/23 07:56 POC Glucose 111 mg/dl (70-99) H 01/05/23 07:57 Calcium 8.7 mg/dl (8.6-10.3) 01/05/23 07:56 SARS-CoV-2, RNA, NAAT NEGATIVE (NEGATIVE) 01/04/23 06:18 Blood Type O Positive 01/04/23 07:04 Antibody Screen NEGATIVE 01/04/23 07:04 Crossmatch See Detail 01/04/23 07:04 Impressions Lumbar Spine X-Ray 01/04/23 07:45 INTRAOPERATIVE RADIOGRAPHS CLINICAL HISTORY: L3-L5 spinal fusion. Fluoro time: 24 seconds Ka,r: 21.37 mGy FINDINGS: 3 spot fluoroscopic views of the lumbar spine are presented. There has been discectomy at L3-L4 and L4-L5 with laminectomy and posterior fusion at L3- L5. Interpedicular screws are present at all levels. The orthopedic hardware appears intact. IMPRESSION: Intraoperative images from lumbar spinal fusion surgery as above. Electronically signed by: Naga Camacho M.D. 01/04/2023 10:11 AM
--- NOTE | 2023-01-05 12:54 | Orthopedic Progress Note ---
Date of Service January 05, 2023 Assessment & Plan (1) Neurogenic claudication due to lumbar spinal stenosis: Plan: This time we will continue physical therapy monitor her JOHN output hopefully discharge home in the next few days. Admission and Anticipated Discharge Date Admission Date: January 04, 2023 Subjective Back pain controlled leg pain improved Physical Exam Physical Exam: Patient is currently in bed. She is comfortable. Is constricted testing. Results & Data Vital Signs (Past 12 Hours) Vital Signs Temp Pulse Pulse Resp BP BP Pulse Ox 01/05/23 12:30 38.4 C H 102 H 18 101/71 94 01/05/23 11:25 92 01/05/23 11:23 38.5 C H 105 H 104/73 87 L 01/05/23 08:05 01/05/23 07:34 37.0 C 109 H 16 107/78 91 01/05/23 03:03 36.7 C 89 18 106/82 96 O2 Del Method O2 Flow Rate 01/05/23 12:30 Nasal Cannula 2 01/05/23 11:25 Nasal Cannula 2 01/05/23 11:23 Room Air 01/05/23 08:05 Room Air 01/05/23 07:34 Room Air 01/05/23 03:03 Room Air
[2023-01-05] MEDS: ACETAMINOPHEN 500 MG TAB PO PRN (13:10)
[2023-01-05] MEDS ORDERED: SODIUM CHLORIDE 0.9% 1000ML 500 ML IV ONE (14:18)
[2023-01-05] MEDS ORDERED: SODIUM CHLORIDE 0.9% 1000ML 2,000 ML IV ONE (14:31)
[2023-01-05] MEDS ORDERED: VANCOMYCIN HCL 1,750 MG in SODIUM CHLORIDE 0.9% 500 ML IV STA (14:55)
[2023-01-05] MEDS ORDERED: PIPERACILLIN/TAZOBACTAM 4.5 GM (over 30 mins) IV STA (14:55)
[2023-01-05] MEDS ORDERED: VANCOMYCIN CONSULT ACTIVE PRN (15:04)
--- NOTE | 2023-01-05 15:14 | Pharmacy Report ---
Pharmacy PK ABX Note - Date of Service January 05, 2023 - Assessment and Plan Assessment 57 year old F receiving Vancomycin and Zosyn empirically for treatment of postoperative fevers. * Day #1 of antimicrobial therapy. * POD #1 s/p L3-L5 decompression and fusion. * Developed fever of 38.5oC today. Hypotensive and tachycardic. Leukocytosis of 16k. * Blood cultures pending. Plan Vancomycin * Loading dose: 1750 mg IV x 1 * Maintenance dose: 1250 mg IV every 12 hours * Regimen is predicted to achieve target AUC/MAUREEN of 400-600 mg/L.hr * No level will be ordered unless therapy extends beyond 48 hours. Pharmacy will continue to follow and will adjust dose/frequency as necessary. Thank you. Pharmacy has transitioned to AUC monitoring for vancomycin. AUC/MAUREEN is the preferred PK/PD target and is associated with decreased risk of nephrotoxicity compared to traditional trough targets.
[2023-01-05] MEDS ORDERED: VANCOMYCIN HCL 1,250 MG in SODIUM CHLORIDE 0.9% 250 ML IV SCH (15:30)
[2023-01-05 16:05] LABS: Calcium 7.9 mg/dl (8.6-10.3); Potassium 3.6 mmol/L (3.5-5.1)
[2023-01-05 16:11] LABS: BUN Creatinine Ratio 8.5 (10-20); Creatinine Clr Calc Pharmacy 118.8 ml/min; Est GFR (African American) 118.8 ml/min; Est GFR (Non-African American) 102.5 ml/min
[2023-01-05 16:16] LABS: Basophils # (auto) 0.06 K/uL (0-0.2); Basophils % (auto) 0.4 %; Hematocrit (blood only) 30.7 % (37.0-47.0); Hemoglobin 10.8 g/dl (12.0-16.0); Immature Granulocytes # (auto) 0.09 K/uL (0.01-0.20); Immature Granulocytes % (auto) 0.6 %; Lymphocytes # (auto) 2.81 K/uL (1.2-3.4); Mean Corpuscular Hemoglobin 32.4 pg (25.0-34.0); Mean Corpuscular Hgb Conc 35.2 g/dL (32.0-36.0); Mean Corpuscular Volume 92.2 fL (80.0-100.0); Mean Platelet Volume 9.6 fL (9.4-12.4); Monocytes # (auto) 1.48 K/uL (0.11-0.59); Neutrophils # (auto) 10.38 K/uL (1.40-6.50); Platelet Count 245 K/uL (130-400); RDW Coefficient of Variation 13.2 % (11.5-14.5); RDW Standard Deviation 44.8 fL (36.4-46.3); Red Blood Count 3.33 M/uL (4.20-5.40); White Blood Count 14.82 K/ul (4.8-10.8)
[2023-01-05] MEDS ORDERED: SODIUM CHLORIDE 0.9% 1000ML 1,000 ML IV ONE (17:19)
[2023-01-05] MEDS: LACTATED RINGER'S 1,000 ML IV SCH (18:19)
[2023-01-05] MEDS: DOCUSATE SODIUM/SENNA 50/8.6MG TAB PO SCH (20:50)
[2023-01-05] MEDS: MIRTAZAPINE TAB 15 MG TAB PO SCH (20:50)
[2023-01-05] MEDS: FAMOTIDINE 40 MG TABLET PO SCH (20:50)
[2023-01-05] MEDS: ZOLPIDEM TARTRATE 10 MG TAB PO SCH (20:51)
[2023-01-05] MEDS: PIPERACILLIN/TAZOBACTAM 4.5 GM in DEXTROSE 5% 100 ML IV SCH (21:25)
[2023-01-06] MEDS ORDERED: VANCOMYCIN HCL 1,250 MG in SODIUM CHLORIDE 0.9% 250 ML IV SCH
[2023-01-06] MEDS: ACETAMINOPHEN 500 MG TAB PO PRN ×2 (00:01→22:08)
[2023-01-06] MEDS: POLYETHYLENE (MIRALAX) 17 GM PACK PO SCH ×5 (00:08→23:22)
[2023-01-06] MEDS: CHECK SCOPOLAMINE PATCH PLACEMENT SCH ×4 (00:08→23:20)
[2023-01-06] MEDS: VANCOMYCIN HCL 1,250 MG in SODIUM CHLORIDE 0.9% 250 ML IV SCH ×2 (01:25→12:11)
[2023-01-06] MEDS ORDERED: MAGNESIUM SULFATE / D5W 1 GM/100 ML BAG IV ONE ×2 (01:35→02:46)
[2023-01-06] MEDS ORDERED: POTASSIUM CHLORIDE PWD 20 MEQ PACK PO STA (01:35)
[2023-01-06 01:57] LABS: Magnesium 1.5 mg/dl (1.7-2.4)
[2023-01-06] MEDS: LACTATED RINGER'S 1,000 ML IV SCH ×3 (03:25→22:38)
[2023-01-06] MEDS: PIPERACILLIN/TAZOBACTAM 4.5 GM in DEXTROSE 5% 100 ML IV SCH ×3 (04:35→20:18)
[2023-01-06] MEDS ORDERED: SODIUM CHLORIDE 0.9% 1000ML 1,000 ML IV ONE (04:42)
[2023-01-06 05:59] LABS: Basophils # (auto) 0.05 K/uL (0-0.2); Basophils % (auto) 0.4 %; Eosinophils # (auto) 0.02 K/uL (0-0.50); Eosinophils % (auto) 0.2 %; Hemoglobin 9.8 g/dl (12.0-16.0); Immature Granulocytes # (auto) 0.06 K/uL (0.01-0.20); Immature Granulocytes % (auto) 0.5 %; Lymphocytes % (auto) 29.6 %; Mean Corpuscular Hemoglobin 31.9 pg (25.0-34.0); Mean Corpuscular Hgb Conc 33.8 g/dL (32.0-36.0); Mean Corpuscular Volume 94.5 fL (80.0-100.0); Mean Platelet Volume 9.2 fL (9.4-12.4); Monocytes # (auto) 1.37 K/uL (0.11-0.59); Monocytes % (auto) 11.3 %; Neutrophils # (auto) 7.07 K/uL (1.40-6.50); Platelet Count 203 K/uL (130-400); RDW Coefficient of Variation 13.5 % (11.5-14.5); RDW Standard Deviation 46.9 fL (36.4-46.3); Red Blood Count 3.07 M/uL (4.20-5.40); White Blood Count 12.17 K/ul (4.8-10.8)
[2023-01-06] MEDS ORDERED: LACTATED RINGER'S 1,000 ML IV SCH (06:00)
[2023-01-06 06:04] LABS: BUN Creatinine Ratio 6.8 (10-20); Calcium 7.7 mg/dl (8.6-10.3); Creatinine Clr Calc Pharmacy 118.8 ml/min; Est GFR (African American) 118.8 ml/min; Est GFR (Non-African American) 102.5 ml/min; Potassium 3.3 mmol/L (3.5-5.1)
[2023-01-06] MEDS ORDERED: POTASSIUM CHLORIDE CRTAB 20 MEQ TABCR PO STA (06:33)
[2023-01-06] MEDS ORDERED: NSS + 20MEQ KCL 20 MEQ/1,000 ML BAG IV ONE (06:35)
[2023-01-06] MEDS: oxyCODONE HCL IR 5 MG TAB (IMMEDIATE RELEASE) PO PRN (06:47)
[2023-01-06] MEDS: INSULIN ASPART PER UNIT CHARGE SC SCH ×4 (08:32→20:13)
[2023-01-06] MEDS: LANTUS PER UNIT CHARGE SC SCH (08:34)
[2023-01-06] MEDS: MAGNESIUM SULFATE / D5W 1 GM/100 ML BAG IV SCH ×4 (09:05→15:39)
[2023-01-06] MEDS: FLUTICASONE/VILANTEROL 200/25MCG 14 PUFFS/INHALER INH SCH (09:08)
[2023-01-06] MEDS: dexAMETHasone 6 MG in SYRINGE 0 ML IV SCH (09:08)
[2023-01-06] MEDS: GABAPENTIN 800 MG TAB PO SCH ×4 (09:08→20:20)
[2023-01-06] MEDS: NICOTINE 14 MG/24 HR PATCH TD SCH (09:09)
[2023-01-06] MEDS: PANTOprazole 40 MG TAB PO SCH (09:10)
[2023-01-06] MEDS: QUEtiapine FUMARATE 200 MG TAB PO SCH ×3 (09:10→20:20)
[2023-01-06] MEDS: CHOLESTYRAMINE LIGHT 4 GM PKT PO SCH ×4 (09:11→22:08)
[2023-01-06] MEDS: CYCLOBENZAPRINE HCL 10 MG TAB PO PRN (09:12)
--- NOTE | 2023-01-06 11:05 | Orthopedic Progress Note ---
Date of Service January 06, 2023 Assessment & Plan (1) Neurogenic claudication due to lumbar spinal stenosis: Plan: Amanda is postoperative day 2 status post L3-5 decompression fusion. She is a bit more confused today. She states she wants to go home although she lives by herself. May need to consider reconsider social service evaluation for referral to rehab/SNF. Continue ambulation. Maintain JOHN drain. Admission and Anticipated Discharge Date Admission Date: January 04, 2023 Subjective Amanda is postoperative day 2 status post L3-5 decompression and instrumented fusion. She is bit confused today. Just does not feel well. No real pain. JOHN drain output last shift was 10 cc. H&H this morning are 9.0 and 29.0 respectively. Pride catheter is intact and draining. She has been hypotensive over the past 24 hours. IV fluid bolus has been ordered by hospitalist team. Review of Systems Review of Systems: All systems reviewed & are unremarkable except as noted in HPI & below Physical Exam Physical Exam: Alert but confused Lumbar dressing is clean dry intact with functioning JOHN drain Calf soft nontender bilaterally Strength intact bilateral lower extremities Results & Data Vital Signs (Past 12 Hours) Vital Signs Temp Pulse Pulse Pulse Resp BP Pulse Ox 01/06/23 08:00 01/06/23 08:30 103/70 01/06/23 07:08 37.0 C 115 H 20 111/66 98 01/06/23 05:53 109 H 105/66 01/06/23 05:47 109 H 103/70 01/06/23 04:34 114 H 85/55 L 01/06/23 04:24 37.0 C 102 H 20 83/53 L 94 01/06/23 02:28 37.5 C 01/05/23 23:08 118 H 01/06/23 01:29 38.5 C H 01/05/23 23:42 38.9 C H 116 H 18 112/77 94 O2 Del Method O2 Flow Rate 01/06/23 08:00 Room Air 01/06/23 08:30 01/06/23 07:08 Nasal Cannula 2 01/06/23 05:53 01/06/23 05:47 01/06/23 04:34 01/06/23 04:24 Nasal Cannula 2 01/06/23 02:28 01/05/23 23:08 01/06/23 01:29 01/05/23 23:42 Nasal Cannula 2
[2023-01-06] MEDS: HYDROmorphone INJ 0.5 MG/0.5 ML SYR IV PRN ×2 (11:09→22:09)
--- NOTE | 2023-01-06 13:57 | Hospitalist Progress Note ---
Date of Service January 06, 2023 Assessment & Plan (1) Neurogenic claudication due to lumbar spinal stenosis: (2) Hypotension: (3) Acute blood loss anemia: (4) Fever: Plan: Patient underwent L3-L5 decompression and fusion on 01/04/2023. On POD 1; patient was found to have significant hypotension and had 2 episode of fever. She also appeared tired and lethargic. Hypertension likely multifactorial; due to antihypertensive, pain medications and excess urine output Episodes of fever; no obvious source of infection. Her hemoglobin down trended to 9.8. Preoperatively it was 14.2. Likely related with fluids Lactic acid within normal limits. Continue IV hydration with LR at 125 cc/h. Bolus as needed On empiric Zosyn and vancomycin. Blood culture pending. Pain medication with Dilaudid decreased to 0.2 mg every 3 hours as needed due to concern for hypotension. (5) Hypertension: Plan: History of hypertension. Hold atenolol and lisinopril. (6) Pre-diabetes: Plan: Hgb A1c 6.1 12/2022 Hold metformin Glycemic pharmacy consulted by primary service (7) Tobacco abuse: Plan: Nicotine patch offered, patient declined (8) Anxiety: (9) Depression: Plan: On Mirtazapine; continue (10) GERD (gastroesophageal reflux disease): Plan: Continue PPI and H2 jeannette DVT PROPHYLAXIS Teds/SCDs as per spine Ortho Please note the above document was generated using voice recognition software. It may contain grammatical, syntax or spelling errors. Any formal questions or concerns about the content, text or information contained within the body of this dictation should be directly addressed to the provider for clarification Admission and Anticipated Discharge Date Admission Date: January 04, 2023 Subjective Overnight, patient was febrile with Tmax of 38.9 C. She was also hypotensive requiring IV fluid bolus. She is awake; appears tired. She denies chills. She reports that she has significant pain. Review of Systems Review of Systems: All systems reviewed & are unremarkable except as noted in Subjective Physical Exam Physical Exam: Constitutional: Awake, appears tired and lethargic. Respiratory: Bilateral clear breath sound. Cardiovascular: RRR, no murmur, no edema Vessels: no JVD or carotid bruit Chest: normal inspection of chest Abdomen: normal bowel sounds, soft, nontender, no hepatosplenomegaly Musculoskeletal: no cyanosis or clubbing, extremities motor strength 5/5. JOHN and dressing in place Skin: no rashes, warm and dry normal turgor Neurologic: PERRL, EOMI, accommodation nl, no face palsy, no dysarthria CN's II- XI intact bilaterally and moves all extremities Psychiatric: A+Ox3, euthymic affect Lymphatic: no cervical or axillary lymphadenopathy : deferred Results & Data Results & Data Vital Signs (Past 12 Hours) Vital Signs Temp Pulse Pulse Resp BP Pulse Ox O2 Del Method 01/06/23 11:20 37.7 C H 120 H 20 109/67 94 Room Air 01/06/23 08:00 Room Air 01/06/23 08:30 103/70 01/06/23 07:08 37.0 C 115 H 20 111/66 98 Nasal Cannula 01/06/23 05:53 109 H 105/66 01/06/23 05:47 109 H 103/70 01/06/23 04:34 114 H 85/55 L 01/06/23 04:24 37.0 C 102 H 20 83/53 L 94 Nasal Cannula 01/06/23 02:28 37.5 C O2 Flow Rate 01/06/23 11:20 01/06/23 08:00 01/06/23 08:30 01/06/23 07:08 2 01/06/23 05:53 01/06/23 05:47 01/06/23 04:34 01/06/23 04:24 2 01/06/23 02:28 Laboratory Results Laboratory Results WBC 12.17 K/ul (4.8-10.8) H 01/06/23 05:18 RBC 3.07 M/uL (4.20-5.40) L 01/06/23 05:18 Hgb 9.8 g/dl (12.0-16.0) L 01/06/23 05:18 Hct 29.0 % (37.0-47.0) L 01/06/23 05:18 MCV 94.5 fL (80.0-100.0) 01/06/23 05:18 MCH 31.9 pg (25.0-34.0) 01/06/23 05:18 MCHC 33.8 g/dL (32.0-36.0) 01/06/23 05:18 RDW Std Deviation 46.9 fL (36.4-46.3) H 01/06/23 05:18 RDW Coeff of Carmela 13.5 % (11.5-14.5) 01/06/23 05:18 Plt Count 203 K/uL (130-400) 01/06/23 05:18 MPV 9.2 fL (9.4-12.4) L 01/06/23 05:18 Immature Gran % (Auto) 0.5 % 01/06/23 05:18 Neut % (Auto) 58.0 % 01/06/23 05:18 Lymph % (Auto) 29.6 % 01/06/23 05:18 [place] % (Auto) 11.3 % 01/06/23 05:18 Eos % (Auto) 0.2 % 01/06/23 05:18 Baso % (Auto) 0.4 % 01/06/23 05:18 Neut # (Auto) 7.07 K/uL (1.40-6.50) H 01/06/23 05:18 Lymph # (Auto) 3.60 K/uL (1.2-3.4) H 01/06/23 05:18 [place] # (Auto) 1.37 K/uL (0.11-0.59) H 01/06/23 05:18 Eos # (Auto) 0.02 K/uL (0-0.50) 01/06/23 05:18 Baso # (Auto) 0.05 K/uL (0-0.2) 01/06/23 05:18 Immature Gran # (Auto) 0.06 K/uL (0.01-0.20) 01/06/23 05:18 Sodium 138 mmol/L (136-145) 01/06/23 05:18 Potassium 3.3 mmol/L (3.5-5.1) L 01/06/23 05:18 Chloride 110 mmol/L (98-107) H 01/06/23 05:18 Carbon Dioxide 24 mmol/L (21-32) 01/06/23 05:18 Anion Gap 4 (3-11) 01/06/23 05:18 BUN 4 mg/dl (6-23) L 01/06/23 05:18 Creatinine 0.59 mg/dl (0.6-1.2) L 01/06/23 05:18 Est Cr Clr Drug Dosing 118.8 ml/min 01/06/23 05:18 Est GFR ( Amer) 118.8 ml/min 01/06/23 05:18 Est GFR (Non-Af Amer) 102.5 ml/min 01/06/23 05:18 BUN/Creatinine Ratio 6.8 (10-20) L 01/06/23 05:18 Glucose 128 mg/dl (70-99(Fasting)) H 01/06/23 05:18 POC Glucose 154 mg/dl (70-99) H 01/06/23 12:03 Lactate 1.0 mmol/L (0.4-2.0) 01/06/23 05:18 Calcium 7.7 mg/dl (8.6-10.3) L 01/06/23 05:18 Magnesium 1.5 mg/dl (1.7-2.4) L 01/05/23 15:24 SARS-CoV-2, RNA, NAAT NEGATIVE (NEGATIVE) 01/04/23 06:18 Blood Type O Positive 01/04/23 07:04 Antibody Screen NEGATIVE 01/04/23 07:04 Crossmatch See Detail 01/04/23 07:04 Impressions Lumbar Spine X-Ray 01/04/23 07:45 INTRAOPERATIVE RADIOGRAPHS CLINICAL HISTORY: L3-L5 spinal fusion. Fluoro time: 24 seconds Ka,r: 21.37 mGy FINDINGS: 3 spot fluoroscopic views of the lumbar spine are presented. There has been discectomy at L3-L4 and L4-L5 with laminectomy and posterior fusion at L3- L5. Interpedicular screws are present at all levels. The orthopedic hardware appears intact. IMPRESSION: Intraoperative images from lumbar spinal fusion surgery as above. Electronically signed by: Naga Camacho M.D. 01/04/2023 10:11 AM
[2023-01-06] MEDS: DOCUSATE SODIUM/SENNA 50/8.6MG TAB PO SCH (20:19)
[2023-01-06] MEDS: FAMOTIDINE 40 MG TABLET PO SCH (20:20)
[2023-01-06] MEDS: MIRTAZAPINE TAB 15 MG TAB PO SCH (20:20)
[2023-01-06] MEDS: ZOLPIDEM TARTRATE 10 MG TAB PO SCH (20:21)
[2023-01-07] MEDS: VANCOMYCIN HCL 1,250 MG in SODIUM CHLORIDE 0.9% 250 ML IV SCH ×2 (00:26→12:11)
[2023-01-07] MEDS ORDERED: ATENOLOL 25 MG TABLET PO SCH (00:35)
[2023-01-07 00:46] LABS: Magnesium 2.1 mg/dl (1.7-2.4)
[2023-01-07] MEDS ORDERED: dexAMETHasone 6 MG in SYRINGE 0 ML IV ONE (02:15)
[2023-01-07 02:46] LABS: Basophils # (auto) 0.06 K/uL (0-0.2); Basophils % (auto) 0.4 %; Eosinophils # (auto) 0.01 K/uL (0-0.50); Eosinophils % (auto) 0.1 %; Hematocrit (blood only) 28.7 % (37.0-47.0); Hemoglobin 9.7 g/dl (12.0-16.0); Immature Granulocytes # (auto) 0.13 K/uL (0.01-0.20); Immature Granulocytes % (auto) 0.9 %; Lymphocytes # (auto) 3.44 K/uL (1.2-3.4); Lymphocytes % (auto) 24.1 %; Mean Corpuscular Hemoglobin 31.8 pg (25.0-34.0); Mean Corpuscular Hgb Conc 33.8 g/dL (32.0-36.0); Mean Corpuscular Volume 94.1 fL (80.0-100.0); Mean Platelet Volume 9.1 fL (9.4-12.4); Monocytes % (auto) 8.4 %; Neutrophils # (auto) 9.42 K/uL (1.40-6.50); Neutrophils % (auto) 66.1 %; Platelet Count 197 K/uL (130-400); RDW Coefficient of Variation 13.2 % (11.5-14.5); RDW Standard Deviation 45.8 fL (36.4-46.3); Red Blood Count 3.05 M/uL (4.20-5.40); White Blood Count 14.26 K/ul (4.8-10.8)
[2023-01-07 03:00] LABS: BUN Creatinine Ratio 5.3 (10-20); Calcium 7.7 mg/dl (8.6-10.3); Creatinine Clr Calc Pharmacy 92.2 ml/min; Est GFR (African American) 101.6 ml/min; Est GFR (Non-African American) 87.7 ml/min; Magnesium 1.8 mg/dl (1.7-2.4); Potassium 3.8 mmol/L (3.5-5.1)
[2023-01-07 03:15] LABS: Thyroid Stimulating Hormone 0.2 uIu/ml (0.300-4.500)
[2023-01-07 03:50] LABS: T4 Free Thyroxine 1.67 ng/dl (0.61-1.60)
[2023-01-07] MEDS: PIPERACILLIN/TAZOBACTAM 4.5 GM in DEXTROSE 5% 100 ML IV SCH ×3 (03:58→20:02)
[2023-01-07] MEDS: LACTATED RINGER'S 1,000 ML IV SCH (05:25)
[2023-01-07] MEDS: POLYETHYLENE (MIRALAX) 17 GM PACK PO SCH (05:55)
[2023-01-07] MEDS: MAGNESIUM HYDROXIDE SUSP 30 ML UDC PO PRN (07:35)
[2023-01-07] MEDS: oxyCODONE HCL IR 5 MG TAB (IMMEDIATE RELEASE) PO PRN ×3 (07:35→19:17)
[2023-01-07] MEDS: NICOTINE 14 MG/24 HR PATCH TD SCH (08:19)
[2023-01-07] MEDS: QUEtiapine FUMARATE 200 MG TAB PO SCH ×3 (08:22→20:07)
[2023-01-07] MEDS: PANTOprazole 40 MG TAB PO SCH (08:22)
[2023-01-07] MEDS: GABAPENTIN 800 MG TAB PO SCH ×3 (08:22→17:38)
[2023-01-07] MEDS: FLUTICASONE/VILANTEROL 200/25MCG 14 PUFFS/INHALER INH SCH (08:26)
[2023-01-07] MEDS: CYCLOBENZAPRINE HCL 10 MG TAB PO PRN (08:30)
[2023-01-07] MEDS: INSULIN ASPART PER UNIT CHARGE SC SCH ×4 (08:31→22:27)
[2023-01-07] MEDS: CHOLESTYRAMINE LIGHT 4 GM PKT PO SCH ×2 (09:40→15:30)
[2023-01-07] MEDS: HYDROmorphone INJ 0.5 MG/0.5 ML SYR IV PRN (10:48)
[2023-01-07] MEDS ORDERED: POLYETHYLENE (MIRALAX) 17 GM PACK PO PRN (11:44)
[2023-01-07 11:46] LABS: Appearance Urine Clear (Clear); Bacteria Urine Automated Negative (Negative); Bilirubin Urine Negative (Negative); Blood Urine Trace (Negative); Color Urine Yellow; Glucose Urine UA Negative (Negative); Ketones Urine Negative (Negative); Leukocyte Esterase Urine Negative (Negative); Nitrite Urine Negative (Negative); Protein Urine Negative (Negative); RBC Urine Automated 0-4 /hpf (0-4); Specific Gravity Urine 1.008 (1.000-1.030); Urobilinogen Urine Negative (Negative); pH Urine 6.5 (4.5-7.5)
[2023-01-07] MEDS ORDERED: HYDROmorphone INJ 0.5 MG/0.5 ML SYR IV PRN (11:47)
[2023-01-07] MEDS ORDERED: LANTUS PER UNIT CHARGE SC ONE (12:15)
--- NOTE | 2023-01-07 12:24 | Orthopedic Progress Note ---
Date of Service January 07, 2023 Assessment & Plan (1) Neurogenic claudication due to lumbar spinal stenosis: Plan: At this time continue physical therapy monitor JOHN output hopefully discharge home in the next few days. Admission and Anticipated Discharge Date Admission Date: January 04, 2023 Subjective Back pain controlled leg pain improving Physical Exam Physical Exam: Patient is alert today. She is cooperative with exam. Distracted testing. Results & Data Vital Signs (Past 12 Hours) Vital Signs Temp Pulse Pulse Pulse Resp BP Pulse Ox 01/07/23 11:47 36.5 C 106 H 18 109/71 92 01/07/23 08:00 120 H 01/07/23 08:00 01/07/23 08:00 36.4 C L 113 H 18 126/83 91 01/07/23 05:53 36.7 C 107 H 127/88 01/07/23 03:33 36.9 C 97 H 18 87/61 L 96 01/07/23 02:56 36.9 C 104 H 89/62 L 01/07/23 01:54 138 H 79/53 L 01/07/23 00:27 36.9 C 115 H 106/66 O2 Del Method O2 Flow Rate 01/07/23 11:47 Room Air 01/07/23 08:00 01/07/23 08:00 Room Air 01/07/23 08:00 Nasal Cannula 2 01/07/23 05:53 01/07/23 03:33 Nasal Cannula 2 01/07/23 02:56 01/07/23 01:54 01/07/23 00:27
--- NOTE | 2023-01-07 13:53 | Pharmacy Report ---
Pharmacy Glycemic Short Note 2 - Date of Service January 07, 2023 - Glycemic Short BSG Results (Last 24 hours): 01/06/23 01/06/23 01/06/23 05:18 16:13 19:55 Glucose 128 H POC Glucose 176 H 145 H 01/07/23 01/07/23 01/07/23 02:25 07:21 12:03 Glucose 125 H POC Glucose 219 H 205 H OUTPATIENT ANTIDIABETIC REGIMEN: * Metformin 500 mg PO BIDM * HbA1c: 6.1% (12/28/22) ASSESSMENT: 01/07: * Lorie received 32 units of insulin yesterday with good glycemic control * 20 units Lantus + 12 units Novolog * BSGs: 128, 195, 154, 176, 145 mg/dL * Fasting BSG of 219 mg/dL this morning. Initially, I had discontinued the patients Lantus order because her daily dose of dexamethasone was discontinued overnight. However, a one time dose of dexamethasone was given around 0200 (likely the cause of BSG increase from 125 -219 mg/dL), therefore Lantus was resumed x 1 dose. No further dexamethasone ordered at this time. 01/05: * Lorie received 39 units of insulin postop yesterday, 30 units basal + 9 units bolus. BSGs were: [phone] mg/dL. * Fasting BSG controlled at 111 mg/dL this AM. Tolerating diet. * Given reduced dose of IV dexamethasone that will be administered over the next 3 days, will empirically reduced basal dose. Empirically reduced bolus parameters as well given trend down in BSG last evening. 01/04: * 57 yo F admitted postoperatively on 01/04/23 following a L3-L5 decompression and fusion. Pharmacy has been consulted to assist with inpatient glycemic management. Patient is a well controlled Type 2 diabetic as an outpatient. Please refer to outpatient regimen and most recent HbA1c above. * Preop BSG was 140 mg/dL while postop BSGs were 137-158 mg/dL. Received 12 mg of IV dexamethasone intraoperatively. Will continue on 6 mg of IV dexamethasone daily for the next 3 days. Ordered a T2DM diet. Will monitor how patient tolerates diet postop. * Giving a full weight/stress of 2 basal dose now to cover steroids. Reassess basal dose in the AM. Starting bolus based on weight/stress of 3. Added an overnight check for tonight. PLAN FOR INPATIENT GLYCEMIC CONTROL: * Hold outpatient oral diabetes medications * Basal insulin * Lantus 20 units SC today, then discontinue * Bolus insulin * NovoLog per scale ACHS or Q6hrs while NPO * Goal Range: Low 110 mg/dL - High 140 mg/dL * Correction Factor: 25 mg/dL/unit - loosen to 30 starting 01/08 * Nutritional / Prandial insulin per carb ratio of 1 unit per 8 grams CHO consumed - loosen to 10 starting 01/08
--- NOTE | 2023-01-07 14:31 | XRay Report ---
XR chest 1V portable CLINICAL HISTORY: Evaluate for pneumonia. COMPARISON STUDY: Chest radiograph December 28, 2022. FINDINGS: There is no pneumothorax. Note definite pleural effusion is present. Interstitial thickenin g and bilateral opacities are noted. These are greater within the right lung. Cardiomediastinal silho uette is normal. IMPRESSION: Interval development of bilateral airspace opacities and interstitial thickening, greate r within the right lung. The findings could reflect pneumonia or pulmonary edema. ACT 112: Negative or not required by law. Electronically signed by: Virgil Jauregui M.D. 01/07/2023 2:30 PM
--- NOTE | 2023-01-07 14:46 | Hospitalist Progress Note ---
Date of Service January 07, 2023 Assessment & Plan (1) Neurogenic claudication due to lumbar spinal stenosis: (2) Hypotension: (3) Acute blood loss anemia: (4) Fever: Plan: Patient underwent L3-L5 decompression and fusion on 01/04/2023. On POD 1; patient was found to have significant hypotension and had 2 episode of fever. She also appeared tired and lethargic. Hypertension likely multifactorial; due to antihypertensive, pain medications and excess urine output Infectious work-up so far: Blood cultureno growth in 24 hours Urinalysis does not suggest infection Chest x-ray reveals slightly increased bilateral airway opacities and inter stitial thickening greater within the right lung Her hemoglobin down trended to 9.8. Preoperatively it was 14.2. Likely related with fluids Lactic acid within normal limits. will continue empiric Zosyn and vancomycin. Obtain procalcitonin. X-ray finding likely related with volume overload than pneumonia. If Pro-Souleymane remains elevated and/or patient continues to be febrile; will recommend course of ceftriaxone and azithromycin. Minimize IV Dilaudid as much as possible as it can contribute to hypotension Fluid boluses as necessary if patient is hypotensive. Continue PT OT; may need placement. (5) Hypertension: Plan: History of hypertension. Hold atenolol and lisinopril. (6) Pre-diabetes: Plan: Hgb A1c 6.1 12/2022 Hold metformin Glycemic pharmacy consulted by primary service (7) Tobacco abuse: Plan: Nicotine patch offered, patient declined (8) Anxiety: (9) Depression: Plan: On Mirtazapine; continue (10) GERD (gastroesophageal reflux disease): Plan: Continue PPI and H2 jeannette DVT PROPHYLAXIS Teds/SCDs as per spine Ortho Please note the above document was generated using voice recognition software. It may contain grammatical, syntax or spelling errors. Any formal questions or concerns about the content, text or information contained within the body of this dictation should be directly addressed to the provider for clarification Admission and Anticipated Discharge Date Admission Date: January 04, 2023 Subjective Patient seen and examined at bedside. She appears tired; reports that her pain is well controlled. She was febrile again last night and intermittently hypotensive. Blood cultures were ordered which patient refused. Review of Systems Review of Systems: All systems reviewed & are unremarkable except as noted in Subjective Physical Exam Physical Exam: Constitutional: Awake, appears tired and lethargic. Respiratory: Bilateral clear breath sound. Cardiovascular: RRR, no murmur, no edema Vessels: no JVD or carotid bruit Chest: normal inspection of chest Abdomen: normal bowel sounds, soft, nontender, no hepatosplenomegaly Musculoskeletal: no cyanosis or clubbing, extremities motor strength 5/5. JOHN drain in place and dressing in place Skin: no rashes, warm and dry normal turgor Neurologic: PERRL, EOMI, accommodation nl, no face palsy, no dysarthria CN's II- XI intact bilaterally and moves all extremities Psychiatric: A+Ox3, euthymic affect Lymphatic: no cervical or axillary lymphadenopathy : deferred Results & Data Results & Data Vital Signs (Past 12 Hours) Vital Signs Temp Pulse Pulse Pulse Resp BP Pulse Ox 01/07/23 11:47 36.5 C 106 H 18 109/71 92 01/07/23 08:00 120 H 01/07/23 08:00 01/07/23 08:00 36.4 C L 113 H 18 126/83 91 01/07/23 05:53 36.7 C 107 H 127/88 01/07/23 03:33 36.9 C 97 H 18 87/61 L 96 01/07/23 02:56 36.9 C 104 H 89/62 L O2 Del Method O2 Flow Rate 01/07/23 11:47 Room Air 01/07/23 08:00 01/07/23 08:00 Room Air 01/07/23 08:00 Nasal Cannula 2 01/07/23 05:53 01/07/23 03:33 Nasal Cannula 2 01/07/23 02:56 Laboratory Results Laboratory Results WBC 14.26 K/ul (4.8-10.8) H 01/07/23 02:25 RBC 3.05 M/uL (4.20-5.40) L 01/07/23 02:25 Hgb 9.7 g/dl (12.0-16.0) L 01/07/23 02:25 Hct 28.7 % (37.0-47.0) L 01/07/23 02:25 MCV 94.1 fL (80.0-100.0) 01/07/23 02:25 MCH 31.8 pg (25.0-34.0) 01/07/23 02:25 MCHC 33.8 g/dL (32.0-36.0) 01/07/23 02:25 RDW Std Deviation 45.8 fL (36.4-46.3) 01/07/23 02:25 RDW Coeff of Carmela 13.2 % (11.5-14.5) 01/07/23 02:25 Plt Count 197 K/uL (130-400) 01/07/23 02:25 MPV 9.1 fL (9.4-12.4) L 01/07/23 02:25 Immature Gran % (Auto) 0.9 % 01/07/23 02:25 Neut % (Auto) 66.1 % 01/07/23 02:25 Lymph % (Auto) 24.1 % 01/07/23 02:25 [place]he % (Auto) 8.4 % 01/07/23 02:25 Eos % (Auto) 0.1 % 01/07/23 02:25 Baso % (Auto) 0.4 % 01/07/23 02:25 Neut # (Auto) 9.42 K/uL (1.40-6.50) H 01/07/23 02:25 Lymph # (Auto) 3.44 K/uL (1.2-3.4) H 01/07/23 02:25 Ashe # (Auto) 1.20 K/uL (0.11-0.59) H 01/07/23 02:25 Eos # (Auto) 0.01 K/uL (0-0.50) 01/07/23 02:25 Baso # (Auto) 0.06 K/uL (0-0.2) 01/07/23 02:25 Immature Gran # (Auto) 0.13 K/uL (0.01-0.20) 01/07/23 02:25 Sodium 138 mmol/L (136-145) 01/07/23 02:25 Potassium 3.8 mmol/L (3.5-5.1) 01/07/23 02:25 Chloride 107 mmol/L (98-107) 01/07/23 02:25 Carbon Dioxide 27 mmol/L (21-32) 01/07/23 02:25 Anion Gap 4 (3-11) 01/07/23 02:25 BUN 4 mg/dl (6-23) L 01/07/23 02:25 Creatinine 0.76 mg/dl (0.6-1.2) 01/07/23 02:25 Est Cr Clr Drug Dosing 92.2 ml/min 01/07/23 02:25 Est GFR ( Amer) 101.6 ml/min 01/07/23 02:25 Est GFR (Non-Af Amer) 87.7 ml/min 01/07/23 02:25 BUN/Creatinine Ratio 5.3 (10-20) L 01/07/23 02:25 Glucose 125 mg/dl (70-99(Fasting)) H 01/07/23 02:25 POC Glucose 205 mg/dl (70-99) H 01/07/23 12:03 Lactate 1.0 mmol/L (0.4-2.0) 01/07/23 02:32 Calcium 7.7 mg/dl (8.6-10.3) L 01/07/23 02:25 Magnesium 1.8 mg/dl (1.7-2.4) 01/07/23 02:25 TSH 0.200 uIu/ml (0.300-4.500) L 01/07/23 02:25 Free T4 1.67 ng/dl (0.61-1.60) H 01/07/23 02:25 Urine Color Yellow 01/07/23 Unknown Urine Appearance Clear (Clear) 01/07/23 Unknown Urine pH 6.5 (4.5-7.5) 01/07/23 Unknown Ur Specific [place]ley 1.008 (1.000-1.030) 01/07/23 Unknown Urine Protein Negative (Negative) 01/07/23 Unknown Urine Glucose (UA) Negative (Negative) 01/07/23 Unknown Urine Ketones Negative (Negative) 01/07/23 Unknown Urine Blood Trace (Negative) H 01/07/23 Unknown Urine Nitrite Negative (Negative) 01/07/23 Unknown Urine Bilirubin Negative (Negative) 01/07/23 Unknown Urine Urobilinogen Negative (Negative) 01/07/23 Unknown Ur Leukocyte Esterase Negative (Negative) 01/07/23 Unknown Urine WBC (Auto) 1-5 /hpf (0-5) 01/07/23 Unknown Urine RBC (Auto) 0-4 /hpf (0-4) 01/07/23 Unknown U Hyaline Cast (Auto) 1-5 /lpf (0-5) 01/07/23 Unknown U Epithel Cells (Auto) 5-10 /lpf (0-5) H 01/07/23 Unknown Urine Bacteria (Auto) Negative (Negative) 01/07/23 Unknown SARS-CoV-2, RNA, NAAT NEGATIVE (NEGATIVE) 01/04/23 06:18 Blood Type O Positive 01/04/23 07:04 Antibody Screen NEGATIVE 01/04/23 07:04 Crossmatch See Detail 01/04/23 07:04 Impressions Lumbar Spine X-Ray 01/04/23 07:45 INTRAOPERATIVE RADIOGRAPHS CLINICAL HISTORY: L3-L5 spinal fusion. Fluoro time: 24 seconds Ka,r: 21.37 mGy FINDINGS: 3 spot fluoroscopic views of the lumbar spine are presented. There has been discectomy at L3-L4 and L4-L5 with laminectomy and posterior fusion at L3- L5. Interpedicular screws are present at all levels. The orthopedic hardware appears intact. IMPRESSION: Intraoperative images from lumbar spinal fusion surgery as above. Electronically signed by: Naga Camacho M.D. 01/04/2023 10:11 AM Chest X-Ray 01/07/23 08:44 XR chest 1V portable CLINICAL HISTORY: Evaluate for pneumonia. COMPARISON STUDY: Chest radiograph December 28, 2022. FINDINGS: There is no pneumothorax. Note definite pleural effusion is present. Interstitial thickening and bilateral opacities are noted. These are greater within the right lung. Cardiomediastinal silhouette is normal. IMPRESSION: Interval development of bilateral airspace opacities and interstitial thickening, greater within the right lung. The findings could reflect pneumonia or pulmonary edema. ACT 112: Negative or not required by law. Electronically signed by: Virgil Jauregui M.D. 01/07/2023 2:30 PM
[2023-01-07] MEDS: ACETAMINOPHEN 500 MG TAB PO PRN (16:49)
[2023-01-07] MEDS ORDERED: MAGNESIUM HYDROXIDE SUSP 30 ML UDC PO ONE (17:29)
[2023-01-07] MEDS: DOCUSATE SODIUM/SENNA 50/8.6MG TAB PO SCH (17:53)
[2023-01-07] MEDS: ATENOLOL 25 MG TABLET PO SCH (19:18)
[2023-01-07] MEDS: GABAPENTIN 300 MG CAP PO SCH (20:06)
[2023-01-07] MEDS: MIRTAZAPINE TAB 15 MG TAB PO SCH (20:06)
[2023-01-07] MEDS: FAMOTIDINE 40 MG TABLET PO SCH (20:06)
[2023-01-07] MEDS: ZOLPIDEM TARTRATE 10 MG TAB PO SCH (20:07)
[2023-01-08] MEDS: oxyCODONE HCL IR 5 MG TAB (IMMEDIATE RELEASE) PO PRN ×4 (03:05→19:57)
[2023-01-08] MEDS: PIPERACILLIN/TAZOBACTAM 4.5 GM in DEXTROSE 5% 100 ML IV SCH ×2 (04:02→12:38)
[2023-01-08 07:41] LABS: Basophils # (auto) 0.04 K/uL (0-0.2); Basophils % (auto) 0.3 %; Eosinophils # (auto) 0.07 K/uL (0-0.50); Eosinophils % (auto) 0.5 %; Hematocrit (blood only) 28.5 % (37.0-47.0); Immature Granulocytes # (auto) 0.09 K/uL (0.01-0.20); Immature Granulocytes % (auto) 0.7 %; Lymphocytes # (auto) 3.27 K/uL (1.2-3.4); Lymphocytes % (auto) 25.5 %; Mean Corpuscular Hemoglobin 32.1 pg (25.0-34.0); Mean Corpuscular Hgb Conc 35.1 g/dL (32.0-36.0); Mean Corpuscular Volume 91.3 fL (80.0-100.0); Mean Platelet Volume 9.3 fL (9.4-12.4); Monocytes # (auto) 1.18 K/uL (0.11-0.59); Monocytes % (auto) 9.2 %; Neutrophils # (auto) 8.16 K/uL (1.40-6.50); Neutrophils % (auto) 63.8 %; Platelet Count 259 K/uL (130-400); RDW Coefficient of Variation 13.5 % (11.5-14.5); RDW Standard Deviation 45.6 fL (36.4-46.3); Red Blood Count 3.12 M/uL (4.20-5.40); White Blood Count 12.81 K/ul (4.8-10.8)
[2023-01-08 07:54] LABS: Albumin Globulin Ratio 1.2 (0.9-2); Albumin Level 2.9 gm/dl (3.4-5.0); BUN Creatinine Ratio 7.9 (10-20); Bilirubin,Total 0.5 mg/dl (0.2-1.0); Calcium 8.1 mg/dl (8.6-10.3); Creatinine Clr Calc Pharmacy 115.6 ml/min; Est GFR (African American) 116.2 ml/min; Est GFR (Non-African American) 100.3 ml/min; Globulin 2.4 gm/dl (2.5-4.0); Potassium 3.7 mmol/L (3.5-5.1); Total Protein 5.3 gm/dl (6.0-8.3)
[2023-01-08] MEDS: NICOTINE 14 MG/24 HR PATCH TD SCH (08:56)
[2023-01-08] MEDS: ATENOLOL 25 MG TABLET PO SCH (08:59)
[2023-01-08] MEDS: PANTOprazole 40 MG TAB PO SCH (08:59)
[2023-01-08] MEDS: GABAPENTIN 300 MG CAP PO SCH ×3 (08:59→21:08)
[2023-01-08] MEDS: QUEtiapine FUMARATE 200 MG TAB PO SCH ×3 (09:00→21:08)
[2023-01-08] MEDS: FLUTICASONE/VILANTEROL 200/25MCG 14 PUFFS/INHALER INH SCH (09:00)
[2023-01-08] MEDS: INSULIN ASPART PER UNIT CHARGE SC SCH ×4 (09:06→21:08)
[2023-01-08] MEDS: CYCLOBENZAPRINE HCL 10 MG TAB PO PRN (09:07)
[2023-01-08] MEDS: ACETAMINOPHEN 500 MG TAB PO PRN ×2 (09:07→16:47)
[2023-01-08] MEDS ORDERED: ALBUMIN 5% 250 ML IV ONE (12:04)
[2023-01-08] MEDS: VANCOMYCIN HCL 1,250 MG in SODIUM CHLORIDE 0.9% 250 ML IV SCH ×2 (12:39)
--- NOTE | 2023-01-08 13:20 | Hospitalist Progress Note ---
Date of Service January 08, 2023 Assessment & Plan (1) Neurogenic claudication due to lumbar spinal stenosis: (2) Hypotension: (3) Acute blood loss anemia: (4) Fever: (5) Hypertension: (6) Pre-diabetes: (7) Tobacco abuse: (8) Anxiety: (9) Depression: (10) GERD (gastroesophageal reflux disease): Plan Neurogenic claudication due to lumbar spinal stenosis: - Status post L3-L5 decompression and fusion on 01/04/2023. On POD 1; patient was found to have significant hypotension and had 2 episode of fever. Started on fluid bolus and antibiotics. -Further management including DVT prophylaxis, pain, activities and diet per primary team Fever-unclear source. Work-up has been unremarkable so far. blood culture 01/05 negative, repeat blood culture from yesterday pending. Procal 0.3. leucocytosis improved. Chest x-ray 01/07 with interval development of bilateral airspace opacities initial thickening greater within right lung-pneumonia versus pulm edema. On empiric antibiotics since POD1. Prior hospitalist discussed with primary team regarding ID consult but recommended holding off for now. Check MRSA nares- if negative discontinue vanco. Might need repeat CXR or CT chest. Wound evaluation per primary team. Hypoxia- On 3 L NC. Recommend diligent use of IS. Continue to wean off oxygen as tolerated. CXR noted. Repeat imaging as above. Hypotension-patient had hypotension again today, possibly related to resumption of her atenolol. Given 250 cc albumin fluid bolus, started on midodrine with hold parameters. We will discontinue nadolol and monitor for now. Lisinopril already on hold since admission. Acute blood loss anemia: postsurgery Hb 13->10. H&H has been stable since then. Pre-diabetes: HA1c 6.1 12/2022. Metformin on hold. Being managed by glycemic pharmacist Tobacco abuse: patient declined nicotine patch Anxiety/Depression: On Mirtazapine; continue GERD (gastroesophageal reflux disease): Continue PPI and H2 jeannette DVT prophylaxis: DEENA/SCD per primary team. Chemoprophylaxis deferred to primary Disposition: Per primary team Please note the above document was generated using voice recognition software. It may contain grammatical, syntax or spelling errors. Any formal questions or concerns about the content, text or information contained within the body of this dictation should be directly addressed to the provider for clarification Admission and Anticipated Discharge Date Admission Date: January 04, 2023 Subjective Patient was seen and examined at bedside. Still having intermittent fevers. Still on NC. Not using incentive spirometer as much. no nausea, vomiting, chest pain. Denies any urinary issues. Complains of pain. She was wondering if the surgical site need to be evaluated. Previously patient would have diarrhea and required cholestyramine, however she has not had a bowel movement since admission. Passing gas Review of Systems Review of Systems: All systems reviewed & are unremarkable except as noted in Subjective Physical Exam Physical Exam: General: Sitting comfortably in chair, not in acute distress, on NC HEENT: EOMI, MIKIE, MMM Chest: Decreased but fair breath sounds bilaterally CVS: Regular rate and rhythm, normal heart sounds, no murmur Abdomen: Soft, non tender, not distended, normal bowel sounds Neuro: Awake, alert, oriented, conversing well, non focal Extremities: No cyanosis, clubbing or edema MSK: Back incision site covered with dressing- not soaked. On JOHN drain with serosang output. Results & Data Results & Data Vital Signs (Past 12 Hours) Vital Signs Temp Pulse Pulse Resp BP BP Pulse Ox 01/08/23 12:34 87/60 L 01/08/23 12:34 67/52 L 01/08/23 12:13 37.3 C 90 19 85/56 L 92 01/08/23 08:21 37.8 C H 106 H 20 105/70 92 01/08/23 04:00 36.7 C 102 H 18 112/74 94 O2 Del Method O2 Flow Rate 01/08/23 12:34 01/08/23 12:34 01/08/23 12:13 Nasal Cannula 3 01/08/23 08:21 Nasal Cannula 3 01/08/23 04:00 Nasal Cannula 3 Laboratory Results Short CBC 01/08/23 Range/Units 07:13 WBC 12.81 H (4.8-10.8) K/ul Hgb 10.0 L (12.0-16.0) g/dl Hct 28.5 L (37.0-47.0) % Plt Count 259 (130-400) K/uL BMP 01/08/23 07:13 Sodium 135 L Potassium 3.7 Chloride 104 Carbon Dioxide 25 BUN 5 L Creatinine 0.63 Glucose 168 H Calcium 8.1 L Liver Function 01/08/23 Range/Units 07:13 Total Bilirubin 0.5 (0.2-1.0) mg/dl AST 24 (13-39) U/L ALT 11 (7-52) U/L Alkaline Phosphatase 80 (34-104) U/L Albumin 2.9 L (3.4-5.0) gm/dl Medications Administered Current Inpatient Medications Acetaminophen (Acetaminophen 500 Mg Tab) 1,000 mg PO Q8H PRN PRN Reason: MILD Pain Scale 1,2,3 & Pre PT Stop: 02/03/23 11:35 Last Admin: 01/08/23 09:07 Dose: 1,000 mg Al Hydrox/Mg Hydrox/Simethicone (Aluminum/Magnesium Susp 30 Ml Udc) 30 ml PO Q6H PRN PRN Reason: Dyspepsia Stop: 02/03/23 11:35 Albuterol (Albuterol Hfa Inhaler 8.5 Gm) 1 puffs INH QID PRN PRN Reason: Wheezing Atenolol (Atenolol 25 Mg Tablet) 12.5 mg PO BID MARGO Stop: 02/07/23 20:59 Bisacodyl (Bisacodyl 10 Mg Supp) 10 mg VA DAILY PRN PRN Reason: Constipation Stop: 02/03/23 11:35 Cyclobenzaprine HCl (Cyclobenzaprine Hcl 10 Mg Tab) 10 mg PO Q8H PRN PRN Reason: Muscle Spasm Stop: 02/04/23 12:52 Last Admin: 01/08/23 09:07 Dose: 10 mg Dextrose (Dextrose 50% 50 Ml Syringe) 25 - 50 ml IV UD PRN; Protocol PRN Reason: Hypoglycemia Protocol Stop: 02/03/23 12:14 Diphenhydramine HCl (Diphenhydramine Capsule 25 Mg Cap) 25 mg PO Q6H PRN PRN Reason: Allergic Rhinitis/Insomnia Stop: 02/03/23 11:35 Famotidine (Famotidine 40 Mg Tablet) 40 mg PO HS MARGO Stop: 02/03/23 20:59 Last Admin: 01/07/23 20:06 Dose: 40 mg Famotidine (Famotidine 20 Mg Tab) 20 mg PO Q12H PRN PRN Reason: Dyspepsia Stop: 02/03/23 11:35 Fluticasone/Vilanterol (Fluticasone/Vilanterol 200/25mcg 14 Puffs/Inhaler) 1 puffs INH DAILY [facility] Stop: 02/04/23 08:59 Last Admin: 01/08/23 09:00 Dose: 1 puffs Gabapentin (Gabapentin 300 Mg Cap) 300 mg PO QID [facility] Stop: 02/06/23 20:59 Last Admin: 01/08/23 12:59 Dose: Not Given Glucagon (Glucagon For Inj 1 Mg Vial) 1 mg IM UD PRN; Protocol PRN Reason: Hypoglycemia Protocol Stop: 02/03/23 12:14 Glucose (Glucose 40% Gel 15 Gm Tube) 15 - 30 gm PO UD PRN; Protocol PRN Reason: Hypoglycemia Protocol Stop: 02/03/23 12:14 Glucose (Glucose 10 Tab/Tube) 4 - 8 tab PO UD PRN; Protocol PRN Reason: Hypoglycemia Protocol Stop: 02/03/23 12:14 Hydromorphone HCl (Hydromorphone Inj 0.5 Mg/0.5 Ml Syr) 0.2 mg IV Q6H PRN PRN Reason: MODERATE Pain (Scale 4,5,6) & Pre PT Stop: 01/20/23 10:46 Hydroxyzine HCl (Hydroxyzine Hcl 25 Mg Tab) 25 mg PO Q8H PRN PRN Reason: Anxiety Stop: 02/03/23 11:35 Promethazine HCl 12.5 mg/ (Sodium Chloride) 50.5 mls @ 202 mls/hr IV Q6H PRN PRN Reason: Nausea &/or Vomiting Stop: 02/03/23 11:35 Piperacillin Sod/Tazobactam (Sod 4.5 gm/ Dextrose) 120 mls @ 30 mls/hr IV Q8H [facility]; Protocol Stop: 01/08/23 23:59 Last Admin: 01/08/23 12:38 Dose: 30 mls/hr Vancomycin HCl 1,250 mg/ (Sodium Chloride) 275 mls @ 200 mls/hr IV Q12H [facility] Stop: 01/08/23 23:59 Last Admin: 01/08/23 12:39 Dose: 200 mls/hr Influenza Virus Vaccine Quadrival (Do Not Administer Flu Vaccine) 1 each N/A PRN PRN PRN Reason: Notification Stop: 02/03/23 11:35 Insulin Aspart (Insulin Aspart Per Unit Charge) 0 units SC [facility]; Protocol Stop: 02/07/23 07:29 Last Admin: 01/08/23 12:38 Dose: 5 units Magnesium Hydroxide (Magnesium Hydroxide Susp 30 Ml Udc) 30 ml PO Q24H PRN PRN Reason: Constipation Stop: 02/03/23 11:35 Last Admin: 01/07/23 07:35 Dose: 30 ml Metoclopramide HCl (Metoclopramide Hcl Inj 5 Mg/Ml 2 Ml Vial) 10 mg IV Q6H PRN PRN Reason: Nausea &/or Vomiting Stop: 02/03/23 11:35 Midodrine (Midodrine Hcl 2.5 Mg Tab) 5 mg PO TID@0800,1200,1700 [facility] Stop: 02/07/23 16:59 Mirtazapine (Mirtazapine Tab 15 Mg Tab) 15 mg PO HS [facility] Stop: 02/03/23 20:59 Last Admin: 01/07/23 20:06 Dose: 15 mg Miscellaneous (Remove Nicoderm Patch) 1 each N/A DAILY@0859 [facility] Stop: 02/04/23 08:58 Last Admin: 01/08/23 08:56 Dose: Not Given Miscellaneous (Carbohydrates For Hypoglycemia ) 15 - 30 gm PO UD PRN PRN Reason: Hypoglycemia Treatment Stop: 02/03/23 12:14 Miscellaneous Information (Pharmacy Glycemic Mgmt Consult) 1 each N/A UD PRN PRN Reason: Consult Stop: 02/03/23 11:35 Miscellaneous Information (Vancomycin Consult Active) 1 each N/A UD PRN PRN Reason: Consult Stop: 02/04/23 15:03 Naloxone HCl (Naloxone Hcl 0.4 Mg/1 Ml Vial/Carp) 0.1 mg IV Q5M PRN PRN Reason: Oversedation/Resp depression Stop: 02/03/23 11:35 Nicotine (Nicotine 14 Mg/24 Hr Patch) 14 mg TD QAM [facility] Stop: 02/03/23 09:59 Last Admin: 01/08/23 08:56 Dose: Not Given Ondansetron HCl (Ondansetron Inj 2 Mg/Ml 2 Ml Vial) 4 mg IV Q6H PRN PRN Reason: Nausea &/or Vomiting Stop: 02/03/23 11:35 Ondansetron HCl (Ondansetron 4 Mg Od Tab) 4 mg PO Q6H PRN PRN Reason: Nausea Stop: 02/03/23 11:35 Oxycodone HCl (Oxycodone Hcl Ir 5 Mg Tab (Immediate Release)) 5 - 10 mg PO Q4H PRN PRN Reason: Pain & Pre PT Stop: 01/18/23 11:35 Last Admin: 01/08/23 09:07 Dose: 10 mg Pantoprazole Sodium ([facility] 40 Mg Tab) [facility] [place] Stop: 02/04/23 08:59 Last Admin: 01/08/23 08:59 Dose: 40 mg Pneumococcal Polyvalent Vaccine (Do Not Administer Pneumococcal Vaccine) 1 each N/A PRN PRN PRN Reason: Notification Stop: 02/03/23 11:35 Polyethylene Glycol (Polyethylene (Miralax) 17 Gm Pack) 17 gm PO DAILY PRN PRN Reason: Constipation Stop: 02/07/23 08:59 Quetiapine Fumarate (Quetiapine Fumarate 200 Mg Tab) 200 mg PO TID [facility] Stop: 02/06/23 20:59 Last Admin: 01/08/23 13:00 Dose: Not Given Senna/Docusate Sodium (Docusate Sodium/Senna 50/8.6mg Tab) 2 tab PO HS [facility] Stop: 02/03/23 20:59 Last Admin: 01/07/23 17:53 Dose: 2 tab Sodium Biphosphate/Sodium Phosphate (Sod Phosphate/Sod Biphosphate Enema 132 Ml Btl) 132 ml VA ONE PRN PRN Reason: Constipation Stop: 02/03/23 11:35 Zolpidem Tartrate (Zolpidem Tartrate 10 Mg Tab) 10 mg PO [facility] Stop: 02/03/23 20:59 Last Admin: 01/07/23 20:07 Dose: 10 mg
--- NOTE | 2023-01-08 13:26 | Pharmacy Report ---
Pharmacy Glycemic Short Note 2 - Date of Service January 08, 2023 - Glycemic Short BSG Results (Last 24 hours): 01/07/23 01/07/23 01/08/23 16:38 20:16 07:13 Glucose 168 H POC Glucose 118 H 146 H 01/08/23 01/08/23 07:18 11:15 Glucose POC Glucose 189 H 163 H OUTPATIENT ANTIDIABETIC REGIMEN: * Metformin 500 mg PO BIDM * HbA1c: 6.1% (12/28/22) ASSESSMENT: 01/08: * Total 35 units of insulin received yesterday; 20 units basal and 15 units bolus. BSGs yesterday were [phone] mg/dl. * BSGs trended down in the evening. IV Dex was discontinued. * Fasting BSG today AM was elevated at 168 mg/dl. Since patient is not eating well and steroid was discontinued, will hold off on adding basal insulin at this time. * Novolog parameters tightened slightly with lunch. 01/07: * Lorie received 32 units of insulin yesterday with good glycemic control * 20 units Lantus + 12 units Novolog * BSGs: 128, 195, 154, 176, 145 mg/dL * Fasting BSG of 219 mg/dL this morning. Initially, I had discontinued the patients Lantus order because her daily dose of dexamethasone was discontinued overnight. However, a one time dose of dexamethasone was given around 0200 (likely the cause of BSG increase from 125 -219 mg/dL), therefore Lantus was resumed x 1 dose. No further dexamethasone ordered at this time. 01/05: * Lorie received 39 units of insulin postop yesterday, 30 units basal + 9 units bolus. BSGs were: [phone] mg/dL. * Fasting BSG controlled at 111 mg/dL this AM. Tolerating diet. * Given reduced dose of IV dexamethasone that will be administered over the next 3 days, will empirically reduced basal dose. Empirically reduced bolus parameters as well given trend down in BSG last evening. 01/04: * 57 yo F admitted postoperatively on 01/04/23 following a L3-L5 decompression and fusion. Pharmacy has been consulted to assist with inpatient glycemic management. Patient is a well controlled Type 2 diabetic as an outpatient. Please refer to outpatient regimen and most recent HbA1c above. * Preop BSG was 140 mg/dL while postop BSGs were 137-158 mg/dL. Received 12 mg of IV dexamethasone intraoperatively. Will continue on 6 mg of IV dexamethasone daily for the next 3 days. Ordered a T2DM diet. Will monitor how patient tolerates diet postop. * Giving a full weight/stress of 2 basal dose now to cover steroids. Reassess basal dose in the AM. Starting bolus based on weight/stress of 3. Added an overnight check for tonight. PLAN FOR INPATIENT GLYCEMIC CONTROL: * Hold outpatient oral diabetes medications * Basal insulin * none * Bolus insulin * NovoLog per scale ACHS or Q6hrs while NPO * Goal Range: Low 110 mg/dL - High 140 mg/dL * Correction Factor: 25 mg/dL/unit * Nutritional / Prandial insulin per carb ratio of 1 unit per 9 grams CHO consumed
--- NOTE | 2023-01-08 14:13 | Orthopedic Progress Note ---
Date of Service January 08, 2023 Assessment & Plan (1) Neurogenic claudication due to lumbar spinal stenosis: Plan: This point patient continues to jc hypotension. I do not believe she is septic however. We will begin weaning some of her medications and continue to encourage ambulation as tolerated. Admission and Anticipated Discharge Date Admission Date: January 04, 2023 Subjective Patient describes pain in her back with transfers and change in position. Otherwise is comfortable. She denies any leg pain. Physical Exam Physical Exam: On exam she is alert and oriented. She has good strength testing lower extremities. Cooperative. Results & Data Vital Signs (Past 12 Hours) Vital Signs Temp Pulse Pulse Pulse Resp BP BP 01/08/23 08:00 90 01/08/23 08:00 01/08/23 12:34 87/60 L 01/08/23 12:34 67/52 L 01/08/23 12:13 37.3 C 90 19 85/56 L 01/08/23 08:21 37.8 C H 106 H 20 105/70 01/08/23 04:00 36.7 C 102 H 18 112/74 Pulse Ox O2 Del Method O2 Flow Rate 01/08/23 08:00 01/08/23 08:00 Room Air 01/08/23 12:34 01/08/23 12:34 01/08/23 12:13 92 Nasal Cannula 3 01/08/23 08:21 92 Nasal Cannula 3 01/08/23 04:00 94 Nasal Cannula 3
[2023-01-08] MEDS: ONDANSETRON 4 MG OD TAB PO PRN (16:51)
[2023-01-08] MEDS ORDERED: MIDODRINE HCL 2.5 MG TAB PO SCH (17:00)
[2023-01-08] MEDS: DOXYCYCLINE HYCLATE 100 MG in DEXTROSE 5% 100 ML IV SCH (17:38)
[2023-01-08] MEDS ORDERED: OPTIRAY 320 500ml IV ONE (18:04)
--- NOTE | 2023-01-08 18:28 | CT Scan Report ---
CT ANGIOGRAM OF THE CHEST; CT SCAN OF THE ABDOMEN AND PELVIS WITH IV CONTRAST CLINICAL HISTORY: Postoperative fever. COMPARISON STUDY: Chest x-ray dated 01/07/2023. TECHNIQUE: Following the IV administration of 115 of Optiray 320, CT angiogram of the chest is perfor med from the upper abdomen to the thoracic inlet utilizing the pulmonary embolus protocol. Images are reviewed in the axial, sagittal, coronal planes. 3-D MIPS images are created and assessed. Subsequen tly, CT scan of the abdomen and pelvis was performed from the lung bases to the proximal femora. Imag es are reviewed in the axial, sagittal, and coronal planes. IV contrast was administered without comp lication. A dose lowering technique was utilized adhering to the principles of ALARA. The examination s are degraded by motion artifact, as well as by streak artifact from the arms which could not be barrett vated above the chest or abdomen. There is also streak artifact from metallic spinal hardware. CT DOSE: 2155.69 mGy.cm FINDINGS: CHEST: Thyroid: Imaged portions of the thyroid gland are normal in size and attenuation. Thoracic aorta: The thoracic aorta is normal in caliber and demonstrates standard 3-vessel arch anato my. No dissection is seen. Pulmonary vasculature: The pulmonary trunk is normal in caliber. There are no filling defects identif ied in the main, lobar, or segmental pulmonary arteries to indicate pulmonary embolus. Heart: The heart is top normal in size and without pericardial effusion. Lungs and pleural spaces: Emphysematous change is noted. There are small pleural effusions with depen dent atelectasis. Interlobular septal thickening is seen at the lung bases. Multifocal groundglass co nsolidation is seen throughout both lungs. The trachea and central airways are clear. Mediastinum: There are enlarged mediastinal lymph nodes. A high right paratracheal node measures 12 m m in short axis. A precarinal node measures 14 mm in short axis. Vibha: 4 enlarged hilar nodes which measure up to 12 mm in short axis. Axillae: There is no axillary lymphadenopathy. Bony thorax: The skeletal structures are osteopenic. Arthritic change is noted in the shoulders. No l ytic or blastic lesions are identified. ABDOMEN AND PELVIS: Liver: The contrast-enhanced liver is enlarged, measuring 21.2 cm in length. The liver is otherwise n ormal in contour and attenuation. There is mild intrahepatic biliary ductal dilatation. The hepatic v eins and portal veins are patent. Gallbladder: Surgically absent noting clips in the gallbladder fossa. Spleen: Normal in size and attenuation. Pancreas: Mildly atrophic and grossly unremarkable. Adrenal glands: Unremarkable. Kidneys: The contrast enhanced kidneys are normal in size and without hydronephrosis. There is hetero geneous enhancement of the right kidney. The left kidney enhances homogeneously. A 13 mm cyst is note d on the left. Abdominal vasculature: The abdominal aorta is normal in course and caliber noting mild atheroscleroti c calcification. Bowel: There is postoperative change from sigmoid colon resection with colocolonic anastomosis. No ervin wel obstruction is seen. [id number] fecal retention is noted throughout the colon. The appendix is not visualized. Peritoneum: No intracranial free air is identified. There is trace free fluid in the pelvis. There is a fat-containing umbilical hernia. Lymphadenopathy: None. Pelvic viscera: There are tiny foci of gas within the bladder lumen. The bladder is otherwise normal as imaged. The uterus is surgically absent. No adnexal lesion is seen. Skeletal structures: The skeletal structures are osteopenic. There is postsurgical change from jennifer ctomy and posterior fusion seen at L3-L5. Interpedicular screws are present at all levels. The orthop edic hardware appears intact. No lytic or blastic lesions are seen. Sclerotic change is noted in the sacroiliac joints. There is a left transverse process fracture of L3. Soft tissues: Postsurgical changes seen posterior to the thecal sac at the operative level. There is a large fluid collection within the posterior subcutaneous soft tissues extending from L2 to L5. This contain small foci of gas and measures approximately 13 x 2.5 x 6 cm seen on axial image #238. A por tion of this fluid collection extends into the central canal and effaces the posterior right aspect o f the thecal sac at L3-L4. This is best seen on axial image #217. IMPRESSION: 1. There is no evidence of pulmonary embolus in the main, lobar, or segmental pulmonary arteries. 2. Interlobular septal thickening suggests fluid overload/congestive failure. Correlate clinically. 3. Small pleural effusions. 4. Emphysema. 5. Multifocal groundglass consolidation is seen throughout both lungs. This could represent pulmonary edema, multifocal pneumonia, pulmonary hemorrhage, and/or ARDS. Clinical correlation will be charlene al. 6. There is heterogeneous enhancement of the right kidney. This is nonspecific and could be seen in t he setting of pyelonephritis. There are also tiny foci of gas within the bladder lumen. Correlate wit h clinical findings and urinalysis. 7. There is postsurgical change from laminectomy and posterior fusion seen at L3-L5. The orthopedic h ardware appears intact. 8. There is a large postoperative fluid collection seen posteriorly at the operative level which cont ains foci of as detailed above. This likely represents a postoperative seroma. The sterility of this fluid cannot be assessed by imaging and clinical correlation will be required. 9. A portion of this fluid collection extends into the central canal and effaces the right posterior aspect of the thecal sac at L3-L4. Correlate for evidence of clinically significant central canal com promise. 10. Left transverse process fracture of L3. 11. Hepatomegaly. 12. There is a small volume of nonspecific free fluid in the pelvis. 13. Mildly enlarged mediastinal and hilar lymph nodes are nonspecific and may be reactive. 14. Additional findings as above. ACT 112: Negative or not required by law. Electronically signed by: Naga Camacho M.D. 01/08/2023 6:26 PM
[2023-01-08] MEDS ORDERED: LACTATED RINGER'S 1,000 ML IV ONE (19:54)
[2023-01-08] MEDS ORDERED: ATENOLOL 25 MG TABLET PO SCH (21:00)
[2023-01-08] MEDS: MEROPENEM 500 MG in SYRINGE 0 ML IV SCH (21:08)
[2023-01-08] MEDS: FAMOTIDINE 40 MG TABLET PO SCH (21:08)
[2023-01-08] MEDS: MIRTAZAPINE TAB 15 MG TAB PO SCH (21:08)
[2023-01-08] MEDS: DOCUSATE SODIUM/SENNA 50/8.6MG TAB PO SCH (21:09)
[2023-01-09] MEDS: MEROPENEM 500 MG in SYRINGE 0 ML IV SCH ×4 (00:58→17:25)
[2023-01-09] MEDS: ONDANSETRON INJ 2 MG/ML 2 ML VIAL IV PRN ×2 (01:57→12:32)
[2023-01-09] MEDS: oxyCODONE HCL IR 5 MG TAB (IMMEDIATE RELEASE) PO PRN ×4 (02:46→16:31)
[2023-01-09] MEDS ORDERED: ATENOLOL 25 MG TABLET PO SCH (02:55)
[2023-01-09] MEDS: DOXYCYCLINE HYCLATE 100 MG in DEXTROSE 5% 100 ML IV SCH ×2 (05:45→17:25)
[2023-01-09] MEDS: NICOTINE 14 MG/24 HR PATCH TD SCH ×2 (07:49→09:03)
[2023-01-09] MEDS: METOCLOPRAMIDE HCL INJ 5 MG/ML 2 ML VIAL IV PRN (07:50)
[2023-01-09] MEDS: FLUTICASONE/VILANTEROL 200/25MCG 14 PUFFS/INHALER INH SCH (07:53)
[2023-01-09] MEDS: PANTOprazole 40 MG TAB PO SCH (07:54)
[2023-01-09] MEDS: QUEtiapine FUMARATE 200 MG TAB PO SCH ×2 (07:54→20:36)
[2023-01-09] MEDS: GABAPENTIN 300 MG CAP PO SCH ×3 (07:55→20:36)
--- NOTE | 2023-01-09 08:57 | Orthopedic Progress Note ---
Date of Service January 09, 2023 Assessment & Plan (1) Neurogenic claudication due to lumbar spinal stenosis: Plan: CAT scan does demonstrate evidence of normal postoperative findings. She is neurologically intact. We will not consider I&D at this point. Concerned her lungs could be the culprit to her unstable vitals. I would encourage her to be transferred to the chair as and ambulate as tolerated. Admission and Anticipated Discharge Date Admission Date: January 04, 2023 Subjective Patient's back pain is controlled right now with oral medication. She denies any numbness or tingling to lower extremities. She states she is able to tolerate sitting and walking well. Physical Exam Physical Exam: Exam the dressings in place. There is no significant pain palpation lumbar musculature. No appreciable swelling. She is good strength testing lower extremities. Results & Data Vital Signs (Past 12 Hours) Vital Signs Temp Pulse Pulse Pulse Resp BP Pulse Ox 01/09/23 07:44 36.7 C 112 H 20 121/81 91 01/09/23 02:53 36.6 C 127 H 22 133/85 90 01/09/23 02:07 36.8 C 122 H 22 140/88 90 01/08/23 22:01 92 H 01/08/23 23:00 36.6 C 100 H 19 109/75 91 O2 Del Method O2 Flow Rate 01/09/23 07:44 Nasal Cannula 3 01/09/23 02:53 Nasal Cannula 3 01/09/23 02:07 Nasal Cannula 3 01/08/23 22:01 01/08/23 23:00 Nasal Cannula 3
[2023-01-09] MEDS ORDERED: FUROSEMIDE INJ 20 MG/2 ML VIAL IV ONE (09:10)
[2023-01-09 09:13] LABS: Basophils # (auto) 0.04 K/uL (0-0.2); Basophils % (auto) 0.4 %; Eosinophils # (auto) 0.01 K/uL (0-0.50); Eosinophils % (auto) 0.1 %; Hemoglobin 9.7 g/dl (12.0-16.0); Immature Granulocytes # (auto) 0.04 K/uL (0.01-0.20); Immature Granulocytes % (auto) 0.4 %; Lymphocytes % (auto) 14.1 %; Mean Corpuscular Hemoglobin 32.2 pg (25.0-34.0); Mean Corpuscular Hgb Conc 34.6 g/dL (32.0-36.0); Mean Platelet Volume 9.9 fL (9.4-12.4); Monocytes # (auto) 0.95 K/uL (0.11-0.59); Monocytes % (auto) 9.6 %; Neutrophils # (auto) 7.49 K/uL (1.40-6.50); Neutrophils % (auto) 75.4 %; Platelet Count 269 K/uL (130-400); RDW Coefficient of Variation 13.5 % (11.5-14.5); RDW Standard Deviation 46.4 fL (36.4-46.3); Red Blood Count 3.01 M/uL (4.20-5.40); White Blood Count 9.93 K/ul (4.8-10.8)
[2023-01-09 09:19] LABS: BUN Creatinine Ratio 9.4 (10-20); Calcium 8.4 mg/dl (8.6-10.3); Creatinine Clr Calc Pharmacy 137.4 ml/min; Est GFR (Non-African American) 106.1 ml/min; Magnesium 1.7 mg/dl (1.7-2.4); Phosphorus 2.6 mg/dl (2.5-4.9); Potassium 3.7 mmol/L (3.5-5.1)
[2023-01-09] MEDS: INSULIN ASPART PER UNIT CHARGE SC SCH ×4 (09:27→20:43)
--- NOTE | 2023-01-09 09:28 | Pulmonary Consultation ---
Date of Consultation January 09, 2023 Assessment & Plan (1) Acute respiratory failure with hypoxia: (2) Tobacco abuse: (3) COPD with emphysema: (4) Pleural effusion: (5) Abnormal chest CT: Plan CT chest 01/08/2023 personally reviewed: Diffuse patchy groundglass opacities appreciated bilaterally upper and lower lobes Minimal emphysema Small bilateral pleural effusion Minimal mediastinal lymphadenopathy -- Acute hypoxic respiratory failure Likely secondary to multilobar pneumonia BNP 268, procalcitonin 0.29 Nasal MRSA negative SARS NAAT negative Respiratory bio fire 01/09/2023 negative The findings could be secondary to infection or acute pulmonary edema especially given bilateral pleural effusion Noninfectious etiologies like autoimmune processes can also be in the differential along with diffuse alveolar hemorrhage, NSIP Autoimmune work-up to be done tomorrow Patient's hemoglobin baseline is around 13. She has been hovering around 10 as of 01/05/2023 --COPD On Breo at home Add Incruse Plan: In/out: -2 L since coming to the hospital Follow-up 2D echo Continue with antibiotics for the time being Chest x-ray to be done tomorrow Add Incruse to patient's inhaler regimen. BiPAP nightly and as needed shortness of breath Recommend gentle diuresis, keep the patient negative balance, strict in and out If there is no improvement then we will plan bronchoscopy Case was discussed with RN at bedside Please note the above document was generated using voice recognition software. It may contain grammatical, syntax or spelling errors.Any formal questions or concerns about the content, text or information contained within the body of this dictation should be directly addressed to the provider for clarification. History of Present Illness Attending Physician: David Dimas DO History of Present Illness 57-year-old female was admitted to the hospital for L3-L5 decompression and fusion Past medical history: Hypertension, anxiety/depression, COPD, GERD Pulmonary consulted for abnormal chest CT At the time of examination patient was saturating 80% on room air. I put her on 3 L nasal cannula she was still saturating 88-89%, and increased to 4 L. She does complain of shortness of breath especially on exertion. Denies any cough, no hemoptysis Denies any chest pain, no headache, no nausea, no vomiting. Denies any chills, no diarrhea. Patient did spike fever of 39.3 on 01/08/2023 No dysuria. Social history: [id number] smoking history currently smoking half a pack a day. Allergies Allergy/AdvReac Type Severity Reaction Status Date / Time aspirin Allergy Intermediate eyes Verified 01/04/23 06:36 swell/ hives morphine Allergy Intermediate itching Verified 01/04/23 06:36 Home Medications Medication Instructions Recorded Confirmed Type albuterol sulfate 90 mcg/actuation 1 inh inhalation QID PRN Wheezing 12/14/22 01/04/23 History breath activated powder inhaler atenolol 25 mg tablet 25 mg PO BID 12/14/22 01/04/23 History cholestyramine (with sugar) 4 gram 4 g PO QID 12/14/22 01/04/23 History oral powder famotidine 40 mg tablet 40 mg PO HS 12/14/22 01/04/23 History fluticasone furoate 200 1 inh inhalation DAILY 12/14/22 01/04/23 History mcg-vilanterol 25 mcg/dose inhalation powder (Breo Ellipta) gabapentin 800 mg tablet 800 mg PO QID 12/14/22 01/04/23 History hydrocodone 10 mg-acetaminophen 0.5 tab PO Q6H 12/14/22 01/04/23 History 325 mg tablet lisinopril 20 mg tablet 20 mg PO QAM 12/14/22 01/04/23 History metformin 500 mg tablet 500 mg PO BID 12/14/22 01/04/23 History mirtazapine 15 mg tablet 15 mg PO HS 12/14/22 01/04/23 History omeprazole 40 mg capsule,delayed 40 mg PO QAM 12/14/22 01/04/23 History release quetiapine 400 mg tablet (Seroquel) 400 mg PO TID 12/14/22 01/04/23 History zolpidem 10 mg tablet (Ambien) 10 mg PO HS 12/14/22 01/04/23 History Patient History Medical History (Updated 01/09/23 @ 09:34 by Kristofer Dolan MD, [facility]) Anxiety Chronic obstructive pulmonary disease Depression Diverticular disease GERD (gastroesophageal reflux disease) Hypertension Insomnia Neuropathy Legs (occasional) Osteoarthritis Pre-diabetes Schizophrenia Tobacco abuse Surgical History History of appendectomy History of section x1 History of cholecystectomy History of colon resection R/t diverticulitis History of colonoscopy History of endoscopic sinus surgery History of hysterectomy History of tonsillectomy History of tooth extraction Nausea and vomiting after administration of anesthetic agent Social History Smoking Status: Current every day smoker Cigarettes Per Day: 1 PPD (tobacco use x approximately 40 years); Second Hand Exposure: No; Do You Dip or Chew Tobacco: No; Tobacco Cessation Education Requested by Patient: No Hx Alcohol Use: No Hx Substance Use: No Preferred Language: Portuguese Communication Ability: Effective Adjunct Mathematics Instructor Required: No Beliefs That Will Affect Care: None Current Living Situation: Significant Other Other Information That Helps Us Care for You: No Feels Safe at Home: Yes Safety Concerns: Feels Safe At This Time Assistive Devices: None Review of Systems Review of Systems: All systems reviewed & are unremarkable except as noted in HPI & below Physical Exam Physical Exam: Constitutional: No acute distress HEENT: EOMI, PERRLA Respiratory system: Decreased air entry bilaterally, no rhonchi, mild expiratory wheeze, positive crackles bilaterally CVS: S1-S2 positive, no murmurs or gallops Abdomen: Soft, nontender, nondistended, positive bowel sounds x4, obese Extremities: +2 pulses bilaterally radialis/ dorsalis pedis, no cyanosis, +1 edema bilateral lower extremity Neuro: Awake alert oriented x3 Psych: Normal mood and affect G/U: No Pride Skin: no rashes, warm and dry Lymphatic: no cervical or axillary lymphadenopathy Results & Data Results & Data Vital Signs (Past 12 Hours) Vital Signs Temp Pulse Pulse Pulse Resp BP Pulse Ox 01/09/23 09:00 01/09/23 07:44 36.7 C 112 H 20 121/81 91 01/09/23 02:53 36.6 C 127 H 22 133/85 90 01/09/23 02:07 36.8 C 122 H 22 140/88 90 01/08/23 22:01 92 H 01/08/23 23:00 36.6 C 100 H 19 109/75 91 O2 Del Method O2 Flow Rate 01/09/23 09:00 Nasal Cannula 2 01/09/23 07:44 Nasal Cannula 3 01/09/23 02:53 Nasal Cannula 3 01/09/23 02:07 Nasal Cannula 3 01/08/23 22:01 01/08/23 23:00 Nasal Cannula 3 Laboratory Results 01/09/23 08:13 01/09/23 08:13 PG Care Time/CCT Total # of Minutes Spent Total Time Spent with Patient: Total time spent is greater than 50% in coordination of care (as documented) at patient's floor/unit and/or counseling patient: [place] [address] INT INP/OBS CARE 3/75MIN Patient Type New Diagnoses Acute respiratory failure with hypoxia J96.01 Tobacco abuse Z72.0 COPD with emphysema J43.9 Pleural effusion J90 Abnormal chest CT R93.89
[2023-01-09 10:11] LABS: Procalcitonin 0.29 ng/ml (0-0.5)
[2023-01-09 10:17] LABS: Lyme Ab IgG w/WB Rflx Negative (Negative); Lyme Ab IgM w/WB Rflx Negative (Negative)
[2023-01-09] MEDS: MAGNESIUM HYDROXIDE SUSP 30 ML UDC PO PRN (10:19)
[2023-01-09 11:01] LABS: Adenovirus PCR Not Detected (NotDetected); Bordetella parapertussis PCR Not Detected (NotDetected); Bordetella pertussis PCR Not Detected (NotDetected); Chlamydia pneumoniae PCR Not Detected (NotDetected); Coronavirus 229E PCR Not Detected (NotDetected); Coronavirus CoV-2 (COVID19)PCR Not Detected (NotDetected); Coronavirus HKU1 PCR Not Detected (NotDetected); Coronavirus NL63 PCR Not Detected (NotDetected); Coronavirus OC43PCR Not Detected (NotDetected); Human Metapneumovirus PCR Not Detected (NotDetected); Influenza A PCR Not Detected (NotDetected); Influenza B PCR Not Detected (NotDetected); Mycoplasma pneumoniae PCR Not Detected (NotDetected); Parainfluenza Virus 1 PCR Not Detected (NotDetected); Parainfluenza Virus 2 PCR Not Detected (NotDetected); Parainfluenza Virus 3 PCR Not Detected (NotDetected); Parainfluenza Virus 4 PCR Not Detected (NotDetected); Respiratory Syncytial VirusPCR Not Detected (NotDetected); Rhinovirus/Enterovirus PCR Not Detected (NotDetected)
[2023-01-09] MEDS: UMECLIDINIUM BROMIDE 62.5MCG/BLISTER 7 PUFFS/INHALER INH SCH (13:01)
--- NOTE | 2023-01-09 14:29 | Hospitalist Progress Note ---
Date of Service January 09, 2023 Assessment & Plan (1) Neurogenic claudication due to lumbar spinal stenosis: (2) Hypotension: (3) Acute blood loss anemia: (4) Fever: (5) Hypertension: (6) Pre-diabetes: (7) Tobacco abuse: (8) Anxiety: (9) Depression: (10) GERD (gastroesophageal reflux disease): Plan CT C/A/P 1. There is no evidence of pulmonary embolus in the main, lobar, or segmental pulmonary arteries. 2. Interlobular septal thickening suggests fluid overload/congestive failure. Correlate clinically. 3. Small pleural effusions. 4. Emphysema. 5. Multifocal groundglass consolidation is seen throughout both lungs. This could represent pulmonary edema, multifocal pneumonia, pulmonary hemorrhage, and/or ARDS. Clinical correlation will be essential. 6. There is heterogeneous enhancement of the right kidney. This is nonspecific and could be seen in the setting of pyelonephritis. There are also tiny foci of gas within the bladder lumen. Correlate with clinical findings and urinalysis. 7. There is postsurgical change from laminectomy and posterior fusion seen at L3-L5. The orthopedic hardware appears intact. 8. There is a large postoperative fluid collection seen posteriorly at the operative level which contains foci of as detailed above. This likely represents a postoperative seroma. The sterility of this fluid cannot be assessed by imaging and clinical correlation will be required. 9. A portion of this fluid collection extends into the central canal and effaces the right posterior aspect of the thecal sac at L3-L4. Correlate for evidence of clinically significant central canal compromise. 10. Left transverse process fracture of L3. 11. Hepatomegaly. 12. There is a small volume of nonspecific free fluid in the pelvis. 13. Mildly enlarged mediastinal and hilar lymph nodes are nonspecific and may be reactive. Neurogenic claudication due to lumbar spinal stenosis: - Status post L3-L5 decompression and fusion on 01/04/2023. On POD 1; patient was found to have significant hypotension and had 2 episode of fever. Started on fluid bolus and antibiotics. -Further management including DVT prophylaxis, pain, activities and diet per primary team Fever- likely pulmonary source. CT C/A/P reviewed as above and seen by pulmonology. Blood clx negative, Urine clx negative, resp biofire negative, lyme negative. Per ortho, expected post op findings in CT at surgical site. - Was on empiric vanc/zosyn but was still spiking fever. Changed to meropenem/doxy yesterday and since then no fever - Seen by pulm- recommendations noted. If no improvement, possible plan for bronch. Hypoxia- CXR and CT noted. On 3 L NC. Recommend diligent use of IS. Starting on gentle lasix to keep on dry side. Echo unremarkable. Continue to wean off oxygen as tolerated. Repeat imaging for follow up. Hypotension- resolved. Did not require any midodrine. Likely related to his home BP meds which were resumed but now having tachycardia as atenolol on hold. Will start on low dose lopressor. Acute blood loss anemia: postsurgery Hb 13->10. H&H has been stable since then. Pre-diabetes: HA1c 6.1 12/2022. Metformin on hold. Being managed by glycemic pharmacist Tobacco abuse: patient declined nicotine patch Anxiety/Depression: On Mirtazapine; continue GERD (gastroesophageal reflux disease): Continue PPI and H2 jeannette DVT prophylaxis: DEENA/SCD per primary team. Chemoprophylaxis deferred to primary Disposition: Per primary team Admission and Anticipated Discharge Date Admission Date: January 04, 2023 Subjective Patient was seen and examined at bedside. She feels little better today. No more fever since yesterday evening. No nausea, vomiting, chest pain. Still no bowel movement yet, although passing gas Review of Systems Review of Systems: All systems reviewed & are unremarkable except as noted in Subjective Physical Exam Physical Exam: General: Lying in bed, not in acute distress, on NC HEENT: EOMI, MIKIE, MMM Chest: Decreased but fair breath sounds bilaterally CVS: Regular rate and rhythm, normal heart sounds, no murmur Abdomen: Soft, non tender, not distended, normal bowel sounds Neuro: Awake, alert, oriented, conversing well, non focal Extremities: No cyanosis, clubbing or edema MSK: Back incision site covered with dressing- not soaked. Results & Data Results & Data Vital Signs (Past 12 Hours) Vital Signs Temp Pulse Resp BP Pulse Ox O2 Del Method O2 Flow Rate 01/09/23 11:57 37.5 C 104 H 20 107/71 94 Nasal Cannula 3 01/09/23 09:00 Nasal Cannula 2 01/09/23 07:44 36.7 C 112 H 20 121/81 91 Nasal Cannula 3 01/09/23 02:53 36.6 C 127 H 22 133/85 90 Nasal Cannula 3 Laboratory Results Short CBC 01/09/23 Range/Units 08:13 WBC 9.93 (4.8-10.8) K/ul Hgb 9.7 L (12.0-16.0) g/dl Hct 28.0 L (37.0-47.0) % Plt Count 269 (130-400) K/uL BMP 01/09/23 08:13 Sodium 136 Potassium 3.7 Chloride 102 Carbon Dioxide 23 BUN 5 L Creatinine 0.53 L Glucose 160 H Calcium 8.4 L Medications Administered Current Inpatient Medications Acetaminophen (Acetaminophen 500 Mg Tab) 1,000 mg PO Q8H PRN PRN Reason: MILD Pain Scale 1,2,3 & Pre PT Stop: 02/03/23 11:35 Last Admin: 01/08/23 16:47 Dose: 1,000 mg Al Hydrox/Mg Hydrox/Simethicone (Aluminum/Magnesium Susp 30 Ml Udc) 30 ml PO Q6H PRN PRN Reason: Dyspepsia Stop: 02/03/23 11:35 Albuterol (Albuterol Hfa Inhaler 8.5 Gm) 1 puffs INH QID PRN PRN Reason: Wheezing Atenolol (Atenolol 25 Mg Tablet) 12.5 mg PO BID [facility] Stop: 02/07/23 20:59 Atenolol (Atenolol 25 Mg Tablet) 12.5 mg PO QAM [facility] Stop: 02/08/23 02:54 Last Admin: 01/09/23 03:14 Dose: 12.5 mg Bisacodyl (Bisacodyl 10 Mg Supp) 10 mg NH DAILY PRN PRN Reason: Constipation Stop: 02/03/23 11:35 Cyclobenzaprine HCl (Cyclobenzaprine Hcl 10 Mg Tab) 10 mg PO Q8H PRN PRN Reason: Muscle Spasm Stop: 02/04/23 12:52 Last Admin: 01/08/23 09:07 Dose: 10 mg Dextrose (Dextrose 50% 50 Ml Syringe) 25 - 50 ml IV UD PRN; Protocol PRN Reason: Hypoglycemia Protocol Stop: 02/03/23 12:14 Diphenhydramine HCl (Diphenhydramine Capsule 25 Mg Cap) 25 mg PO Q6H PRN PRN Reason: Allergic Rhinitis/Insomnia Stop: 02/03/23 11:35 Famotidine (Famotidine 40 Mg Tablet) 40 mg PO HS [facility] Stop: 02/03/23 20:59 Last Admin: 01/08/23 21:08 Dose: 40 mg Famotidine (Famotidine 20 Mg Tab) 20 mg PO Q12H PRN PRN Reason: Dyspepsia Stop: 02/03/23 11:35 Fluticasone/Vilanterol (Fluticasone/Vilanterol 200/25mcg 14 Puffs/Inhaler) 1 puffs INH DAILY [facility] Stop: 02/04/23 08:59 Last Admin: 01/09/23 07:53 Dose: 1 puffs Gabapentin (Gabapentin 300 Mg Cap) 300 mg PO TID [facility] Stop: 02/07/23 20:59 Last Admin: 01/09/23 13:01 Dose: 300 mg Glucagon (Glucagon For Inj 1 Mg Vial) 1 mg IM UD PRN; Protocol PRN Reason: Hypoglycemia Protocol Stop: 02/03/23 12:14 Glucose (Glucose 40% Gel 15 Gm Tube) 15 - 30 gm PO UD PRN; Protocol PRN Reason: Hypoglycemia Protocol Stop: 02/03/23 12:14 Glucose (Glucose 10 Tab/Tube) 4 - 8 tab PO UD PRN; Protocol PRN Reason: Hypoglycemia Protocol Stop: 02/03/23 12:14 Hydroxyzine HCl (Hydroxyzine Hcl 25 Mg Tab) 25 mg PO Q8H PRN PRN Reason: Anxiety Stop: 02/03/23 11:35 Promethazine HCl 12.5 mg/ (Sodium Chloride) 50.5 mls @ 202 mls/hr IV Q6H PRN PRN Reason: Nausea &/or Vomiting Stop: 02/03/23 11:35 Last Infusion: 01/08/23 20:49 Dose: Infused Doxycycline Hyclate 100 mg/ (Dextrose) 110 mls @ 50 mls/hr IV Q12H [facility] Stop: 01/10/23 17:14 Last Infusion: 01/09/23 08:00 Dose: Infused Meropenem 500 mg/ Syringe 10 mls @ 2 mls/min IV Q6H [facility]; Protocol Stop: 01/10/23 18:59 Last Admin: 01/09/23 13:01 Dose: 2 mls/min Influenza Virus Vaccine Quadrival (Do Not Administer Flu Vaccine) 1 each N/A PRN PRN PRN Reason: Notification Stop: 02/03/23 11:35 Insulin Aspart (Insulin Aspart Per Unit Charge) 0 units SC [facility]; Protocol Stop: 02/07/23 07:29 Last Admin: 01/09/23 12:32 Dose: 3 units Magnesium Hydroxide (Magnesium Hydroxide Susp 30 Ml Udc) 30 ml PO Q24H PRN PRN Reason: Constipation Stop: 02/03/23 11:35 Last Admin: 01/09/23 10:19 Dose: 30 ml Metoclopramide HCl (Metoclopramide Hcl Inj 5 Mg/Ml 2 Ml Vial) 10 mg IV Q6H PRN PRN Reason: Nausea &/or Vomiting Stop: 02/03/23 11:35 Last Admin: 01/09/23 07:50 Dose: 10 mg Mirtazapine (Mirtazapine Tab 15 Mg Tab) 15 mg PO [facility] Stop: 02/03/23 20:59 Last Admin: 01/08/23 21:08 Dose: 15 mg Miscellaneous (Remove Nicoderm Patch) 1 each N/A DAILY@0859 [facility] Stop: 02/04/23 08:58 Last Admin: 01/09/23 09:03 Dose: Not Given Miscellaneous (Carbohydrates For Hypoglycemia ) 15 - 30 gm PO UD PRN PRN Reason: Hypoglycemia Treatment Stop: 02/03/23 12:14 Miscellaneous Information (Pharmacy Glycemic Mgmt Consult) 1 each N/A UD PRN PRN Reason: Consult Stop: 02/03/23 11:35 Naloxone HCl (Naloxone Hcl 0.4 Mg/1 Ml Vial/Carp) 0.1 mg IV Q5M PRN PRN Reason: Oversedation/Resp depression Stop: 02/03/23 11:35 Nicotine (Nicotine 14 Mg/24 Hr Patch) 14 mg TD QAM [facility] Stop: 02/03/23 09:59 Last Admin: 01/09/23 09:03 Dose: Not Given Ondansetron HCl (Ondansetron Inj 2 Mg/Ml 2 Ml Vial) 4 mg IV Q6H PRN PRN Reason: Nausea &/or Vomiting Stop: 02/03/23 11:35 Last Admin: 01/09/23 12:32 Dose: 4 mg Ondansetron HCl (Ondansetron 4 Mg Od Tab) 4 mg PO Q6H PRN PRN Reason: Nausea Stop: 02/03/23 11:35 Last Admin: 01/08/23 16:51 Dose: 4 mg Oxycodone HCl (Oxycodone Hcl Ir 5 Mg Tab (Immediate Release)) 5 - 10 mg PO Q4H PRN PRN Reason: Pain & Pre PT Stop: 01/18/23 11:35 Last Admin: 01/09/23 12:43 Dose: 5 mg Pantoprazole Sodium (Pantoprazole 40 Mg Tab) 40 mg PO QAM [facility] Stop: 02/04/23 08:59 Last Admin: 01/09/23 07:54 Dose: 40 mg Pneumococcal Polyvalent Vaccine (Do Not Administer Pneumococcal Vaccine) 1 each N/A PRN PRN PRN Reason: Notification Stop: 02/03/23 11:35 Polyethylene Glycol (Polyethylene (Miralax) 17 Gm Pack) 17 gm PO DAILY PRN PRN Reason: Constipation Stop: 02/07/23 08:59 Quetiapine Fumarate (Quetiapine Fumarate 200 Mg Tab) 200 mg PO BID [facility] Stop: 02/07/23 20:59 Last Admin: 01/09/23 07:54 Dose: 200 mg Senna/Docusate Sodium (Docusate Sodium/Senna 50/8.6mg Tab) 2 tab PO HS [facility] Stop: 02/03/23 20:59 Last Admin: 01/08/23 21:09 Dose: 2 tab Sodium Biphosphate/Sodium Phosphate (Sod Phosphate/Sod Biphosphate Enema 132 Ml Btl) 132 ml NH ONE PRN PRN Reason: Constipation Stop: 02/03/23 11:35 Umeclidinium [place] (Umeclidinium [place] 62.5mcg/Blister 7 Puffs/Inhaler) 1 puffs INH DAILY [facility] Stop: 02/08/23 12:14 Last Admin: 01/09/23 13:01 Dose: 1 puffs
[2023-01-09] MEDS ORDERED: POLYETHYLENE (MIRALAX) 17 GM PACK PO ONE (14:30)
[2023-01-09] MEDS: ACETAMINOPHEN 500 MG TAB PO PRN (16:32)
[2023-01-09] MEDS: DOCUSATE SODIUM/SENNA 50/8.6MG TAB PO SCH (16:33)
[2023-01-09] MEDS: CYCLOBENZAPRINE HCL 10 MG TAB PO PRN (19:17)
[2023-01-09] MEDS: MIRTAZAPINE TAB 15 MG TAB PO SCH (20:36)
[2023-01-09] MEDS: FAMOTIDINE 40 MG TABLET PO SCH (20:36)
[2023-01-09] MEDS: METOPROLOL TARTRATE 25 MG TAB PO SCH (20:44)
[2023-01-09] MEDS ORDERED: METOPROLOL TARTRATE 25 MG TAB PO SCH (21:00)
[2023-01-10] MEDS: MEROPENEM 500 MG in SYRINGE 0 ML IV SCH ×4 (01:04→17:24)
[2023-01-10] MEDS: oxyCODONE HCL IR 5 MG TAB (IMMEDIATE RELEASE) PO PRN ×5 (01:08→20:04)
[2023-01-10] MEDS: ACETAMINOPHEN 500 MG TAB PO PRN ×2 (03:15→15:17)
[2023-01-10] MEDS: DOXYCYCLINE HYCLATE 100 MG in DEXTROSE 5% 100 ML IV SCH ×2 (05:14→17:23)
[2023-01-10 05:39] LABS: Hemoglobin 9.1 g/dl (12.0-16.0); Mean Corpuscular Hemoglobin 31.5 pg (25.0-34.0); Mean Corpuscular Hgb Conc 33.7 g/dL (32.0-36.0); Mean Corpuscular Volume 93.4 fL (80.0-100.0); Mean Platelet Volume 9.6 fL (9.4-12.4); Platelet Count 343 K/uL (130-400); RDW Coefficient of Variation 13.5 % (11.5-14.5); RDW Standard Deviation 45.9 fL (36.4-46.3); Red Blood Count 2.89 M/uL (4.20-5.40); White Blood Count 10.65 K/ul (4.8-10.8)
[2023-01-10 05:48] LABS: BUN Creatinine Ratio 13.2 (10-20); Calcium 8.7 mg/dl (8.6-10.3); Creatinine Clr Calc Pharmacy 137.4 ml/min; Est GFR (Non-African American) 106.1 ml/min; Potassium 3.1 mmol/L (3.5-5.1)
[2023-01-10] MEDS: ONDANSETRON 4 MG OD TAB PO PRN (07:30)
--- NOTE | 2023-01-10 07:34 | XRay Report ---
XR chest 1V portable CLINICAL HISTORY: f/u COMPARISON STUDY: Chest radiograph January 07, 2023. Chest CT January 08, 2023. FINDINGS: There is no pneumothorax. Small bilateral pleural effusions are noted. Cardiomediastinal si lhouette is unremarkable. Interstitial thickening and bilateral opacities have progressed since chest radiograph January 07, 2023. These are similar to chest CT of January 08, 2023. IMPRESSION: 1. No significant change in interstitial thickening in bilateral airspace opacities since prior chest CT. The findings are nonspecific and differential considerations include pulmonary edema, pneumonia, hemorrhage or ARDS. 2. Small bilateral pleural effusions. ACT 112: Negative or not required by law. Electronically signed by: Virgil Jauregui M.D. 01/10/2023 7:33 AM
[2023-01-10] MEDS ORDERED: FUROSEMIDE INJ 20 MG/2 ML VIAL IV ONE (08:07)
[2023-01-10] MEDS ORDERED: FUROSEMIDE 40 MG/4 ML VIAL IV ONE (08:15)
--- NOTE | 2023-01-10 08:17 | Orthopedic Progress Note ---
Date of Service January 10, 2023 Assessment & Plan (1) Neurogenic claudication due to lumbar spinal stenosis: Plan: Amanda is postoperative day 6 posterior lumbar decompression and fusion L3-5. She also has ARS with hypoxia, likely pneumonia. She still spiking temp eratures. Chest x-ray is pending this morning. Continue ambulation. Continue physical therapy. Ultimately when she is medically stable she wants to be discharged home. Admission and Anticipated Discharge Date Admission Date: January 04, 2023 Subjective Amanda is postoperative day 6 status post lumbar decompression and fusion L3- 5. She states she feels a little bit better today. She did spike a temperature of 38.5 overnight. Chest x-ray is pending this morning. She is currently has ARS with hypoxia. Most likely pneumonia. She is on antibiotics. She is on nasal cannula. H&H are 9.1 and 27.0 this morning Review of Systems Review of Systems: All systems reviewed & are unremarkable except as noted in HPI & below Physical Exam Physical Exam: She is lying in bed in no acute distress, NC Alert and oriented x3 Lumbar dressing is clean dry and intact Calf soft and nontender bilaterally Strength intact 5/5 bilateral lower extremities Results & Data Vital Signs (Past 12 Hours) Vital Signs Temp Pulse Resp BP BP Pulse Ox O2 Del Method 01/10/23 07:51 Nasal Cannula 01/10/23 04:30 37.7 C H 01/10/23 04:38 37.7 C H 01/10/23 03:00 38.5 C H 120 H 22 134/80 90 Nasal Cannula 01/09/23 23:00 37.1 C 100 H 18 116/77 95 Nasal Cannula 01/09/23 20:38 95 H 20 103/67 91 Nasal Cannula O2 Flow Rate 01/10/23 07:51 3 01/10/23 04:30 01/10/23 04:38 01/10/23 03:00 3 01/09/23 23:00 3 01/09/23 20:38 3
[2023-01-10] MEDS: QUEtiapine FUMARATE 200 MG TAB PO SCH ×2 (08:37→20:07)
[2023-01-10] MEDS: METOPROLOL TARTRATE 25 MG TAB PO SCH ×2 (08:37→20:06)
[2023-01-10] MEDS: GABAPENTIN 300 MG CAP PO SCH ×3 (08:37→20:06)
[2023-01-10] MEDS: PANTOprazole 40 MG TAB PO SCH (08:38)
[2023-01-10] MEDS: NICOTINE 14 MG/24 HR PATCH TD SCH (08:38)
[2023-01-10] MEDS: UMECLIDINIUM BROMIDE 62.5MCG/BLISTER 7 PUFFS/INHALER INH SCH (08:39)
[2023-01-10] MEDS: FLUTICASONE/VILANTEROL 200/25MCG 14 PUFFS/INHALER INH SCH (08:39)
[2023-01-10] MEDS: INSULIN ASPART PER UNIT CHARGE SC SCH ×4 (08:44→21:38)
[2023-01-10] MEDS: POTASSIUM CHLORIDE CRTAB 20 MEQ TABCR PO SCH (08:44)
[2023-01-10] MEDS ORDERED: LANTUS PER UNIT CHARGE SC SCH (09:00)
--- NOTE | 2023-01-10 09:18 | Pharmacy Report ---
Pharmacy Glycemic Short Note 2 - Date of Service January 10, 2023 - Glycemic Short BSG Results (Last 24 hours): 01/09/23 01/09/23 01/09/23 08:13 11:08 16:42 Glucose 160 H POC Glucose 192 H 148 H 01/09/23 01/10/23 01/10/23 20:33 04:29 08:04 Glucose 169 H POC Glucose 222 H 168 H OUTPATIENT ANTIDIABETIC REGIMEN: * Metformin 500 mg PO BIDM * HbA1c: 6.1% (12/28/22) ASSESSMENT: 01/10/23 * Patient's BSGs yesterday were [phone] mg/dL. Patient received 7 units of Novolog yesterday. * Fasting today is 168 mg/dL. * Start Lantus 10 units daily for BSG > 180 mg/dL. * Continue Novolog. * Continue to hold metformin as patient received contrast 01/08/23. 01/08: * Total 35 units of insulin received yesterday; 20 units basal and 15 units bolus. BSGs yesterday were 376-144-360-146 mg/dl. * BSGs trended down in the evening. IV Dex was discontinued. * Fasting BSG today AM was elevated at 168 mg/dl. Since patient is not eating well and steroid was discontinued, will hold off on adding basal insulin at this time. * Novolog parameters tightened slightly with lunch. 01/07: * Lorie received 32 units of insulin yesterday with good glycemic control * 20 units Lantus + 12 units Novolog * BSGs: 128, 195, 154, 176, 145 mg/dL * Fasting BSG of 219 mg/dL this morning. Initially, I had discontinued the patients Lantus order because her daily dose of dexamethasone was discontinued overnight. However, a one time dose of dexamethasone was given around 0200 (likely the cause of BSG increase from 125 -219 mg/dL), therefore Lantus was resumed x 1 dose. No further dexamethasone ordered at this time. 01/05: * Lorie received 39 units of insulin postop yesterday, 30 units basal + 9 units bolus. BSGs were: [phone] mg/dL. * Fasting BSG controlled at 111 mg/dL this AM. Tolerating diet. * Given reduced dose of IV dexamethasone that will be administered over the next 3 days, will empirically reduced basal dose. Empirically reduced bolus parameters as well given trend down in BSG last evening. 01/04: * 57 yo F admitted postoperatively on 01/04/23 following a L3-L5 decompression and fusion. Pharmacy has been consulted to assist with inpatient glycemic management. Patient is a well controlled Type 2 diabetic as an outpatient. Please refer to outpatient regimen and most recent HbA1c above. * Preop BSG was 140 mg/dL while postop BSGs were 137-158 mg/dL. Received 12 mg of IV dexamethasone intraoperatively. Will continue on 6 mg of IV dexamethasone daily for the next 3 days. Ordered a T2DM diet. Will monitor how patient tolerates diet postop. * Giving a full weight/stress of 2 basal dose now to cover steroids. Reassess basal dose in the AM. Starting bolus based on weight/stress of 3. Added an overnight check for tonight. PLAN FOR INPATIENT GLYCEMIC CONTROL: * Hold outpatient oral diabetes medications * Basal insulin * Lantus 10 units daily * Bolus insulin * NovoLog per scale ACHS or Q6hrs while NPO * Goal Range: Low 110 mg/dL - High 140 mg/dL * Correction Factor: 25 mg/dL/unit * Nutritional / Prandial insulin per carb ratio of 1 unit per 8 grams CHO consumed
--- NOTE | 2023-01-10 09:34 | Pulmonology Progress Note ---
Date of Service January 10, 2023 Assessment & Plan (1) Acute respiratory failure with hypoxia: (2) Tobacco abuse: (3) COPD with emphysema: (4) Pleural effusion: (5) Abnormal chest CT: Plan CT chest 01/08/2023 personally reviewed: Diffuse patchy groundglass opacities appreciated bilaterally upper and lower lobes Minimal emphysema Small bilateral pleural effusion Minimal mediastinal lymphadenopathy 2D echo 01/09/2023: EF 65-70%, RV normal in size and function -- Acute hypoxic respiratory failure Likely secondary to multilobar pneumonia BNP 268, procalcitonin 0.29 Nasal MRSA negative SARS NAAT negative Respiratory bio fire 01/09/2023 negative The findings could be secondary to infection or acute pulmonary edema especially given bilateral pleural effusion Noninfectious etiologies like autoimmune processes can also be in the differential along with diffuse alveolar hemorrhage, NSIP Follow-up autoimmune work-up Patient's hemoglobin baseline is around 13. She has been hovering around 10 as of 01/05/2023 No personal or family history of autoimmune disease like lupus, sarcoid, Sjogren's, rheumatoid --COPD On Breo at home c/w Incruse Plan: In/out: -1220, urine output 1800 mL, -3.2 L since coming to the hospital Chest x-ray from today shows bilateral interstitial opacities, minimal blunting of bilateral pleural effusion Continue with Incruse BiPAP nightly and as needed shortness of breath For bronchoscopy tomorrow. N.p.o. postmidnight Hold all anticoagulation Risk and benefit of the procedure explained to the patient in depth, she u nderstands and agrees to go ahead with the procedure Consent signed, witnessed and put in the chart Case was discussed with RN at bedside and Dr. Acosta Please note the above document was generated using voice recognition software. It may contain grammatical, syntax or spelling errors.Any formal questions or concerns about the content, text or information contained within the body of this dictation should be directly addressed to the provider for clarification. Admission and Anticipated Discharge Date Admission Date: January 04, 2023 Subjective Patient seen and examined at bedside. No acute distress, no adverse events overnight Patient seems to be more alert today. Denied any headache, no nausea, no vomiting Breathing is better. She still requiring oxygen to maintain her saturation. Still spiking fever Patient refused BiPAP overnight. Importance of using explained to the patient Review of Systems Review of Systems: All systems reviewed & are unremarkable except as noted in Subjective Physical Exam Physical Exam: Constitutional: No acute distress HEENT: EOMI, PERRLA Respiratory system: Decreased air entry bilaterally, no rhonchi, mild expiratory wheeze, positive crackles bilaterally CVS: S1-S2 positive, no murmurs or gallops Abdomen: Soft, nontender, nondistended, positive bowel sounds x4, obese Extremities: +2 pulses bilaterally radialis/ dorsalis pedis, no cyanosis, +1 edema bilateral lower extremity Neuro: Awake alert oriented x3 Psych: Normal mood and affect G/U: No Pride Skin: no rashes, warm and dry Lymphatic: no cervical or axillary lymphadenopathy Results & Data Results & Data Vital Signs (Past 12 Hours) Vital Signs Temp Pulse Resp BP Pulse Ox O2 Del Method O2 Flow Rate 01/10/23 07:51 Nasal Cannula 3 01/10/23 04:30 37.7 C H 01/10/23 04:38 37.7 C H 01/10/23 03:00 38.5 C H 120 H 22 134/80 90 Nasal Cannula 3 01/09/23 23:00 37.1 C 100 H 18 116/77 95 Nasal Cannula 3 Laboratory Results 01/10/23 04:29 01/10/23 04:29 PG Care Time/CCT Total # of Minutes Spent Total Time Spent with Patient: Total time spent is greater than 50% in coordination of care (as documented) at patient's floor/unit and/or counseling patient: Coding Level of Care Code 32923 SUB INP/OBS CARE 3/50MIN Diagnoses Acute respiratory failure with hypoxia J96.01 Tobacco abuse Z72.0 COPD with emphysema J43.9 Pleural effusion J90 Abnormal chest CT R93.89
--- NOTE | 2023-01-10 11:39 | Hospitalist Progress Note ---
Date of Service January 10, 2023 Assessment & Plan (1) Neurogenic claudication due to lumbar spinal stenosis: (2) Fever: (3) Hypotension: (4) Acute blood loss anemia: (5) Pre-diabetes: (6) Tobacco abuse: (7) Anxiety: (8) Depression: (9) GERD (gastroesophageal reflux disease): Plan CT C/A/P 1. There is no evidence of pulmonary embolus in the main, lobar, or segmental pulmonary arteries. 2. Interlobular septal thickening suggests fluid overload/congestive failure. Correlate clinically. 3. Small pleural effusions. 4. Emphysema. 5. Multifocal groundglass consolidation is seen throughout both lungs. This could represent pulmonary edema, multifocal pneumonia, pulmonary hemorrhage, and/or ARDS. Clinical correlation will be essential. 6. There is heterogeneous enhancement of the right kidney. This is nonspecific and could be seen in the setting of pyelonephritis. There are also tiny foci of gas within the bladder lumen. Correlate with clinical findings and urinalysis. 7. There is postsurgical change from laminectomy and posterior fusion seen at L3-L5. The orthopedic hardware appears intact. 8. There is a large postoperative fluid collection seen posteriorly at the operative level which contains foci of as detailed above. This likely represents a postoperative seroma. The sterility of this fluid cannot be assessed by imaging and clinical correlation will be required. 9. A portion of this fluid collection extends into the central canal and effaces the right posterior aspect of the thecal sac at L3-L4. Correlate for evidence of clinically significant central canal compromise. 10. Left transverse process fracture of L3. 11. Hepatomegaly. 12. There is a small volume of nonspecific free fluid in the pelvis. 13. Mildly enlarged mediastinal and hilar lymph nodes are nonspecific and may be reactive. Neurogenic claudication due to lumbar spinal stenosis: - Status post L3-L5 decompression and fusion on 01/04/2023. On POD 1; patient was found to have significant hypotension and had 2 episode of fever. Started on fluid bolus and antibiotics. -Further management including DVT prophylaxis, pain, activities and diet per primary team Fever/abnormal CT chest- likely pulmonary source. CT C/A/P reviewed as above and seen by pulmonology. Blood clx negative, Urine clx negative, resp biofire negative, lyme negative. Per ortho, expected post op findings in CT at surgical site. - Was on empiric vanc/zosyn but was still spiking fever. Changed to meropenem/doxy but still with fever - Seen by pulm- recommendations noted. Plan for bronchoscopy tomorrow-n.p.o. after midnight. Autoimmune work-up in process given her CT chest findings Acute hypoxic respite failure-due to pneumonia and pulm edema. CXR and CT noted. On 3 L NC. Recommend diligent use of IS. Status post IV Lasix yesterday and today. echo unremarkable. Continue to wean off oxygen as tolerated. Hypokalemia-repleted, recheck in Hypotension- resolved. Did not require any midodrine. Likely related to his home BP meds which were resumed but now having tachycardia as atenolol on hold. Started on low dose lopressor. Acute blood loss anemia: postsurgery Hb 13->10. H&H has been stable since then. Pre-diabetes: HA1c 6.1 12/2022. Metformin on hold. Being managed by glycemic pharmacist Tobacco abuse: patient declined nicotine patch Anxiety/Depression: On Mirtazapine; continue GERD (gastroesophageal reflux disease): Continue PPI and H2 jeannette DVT prophylaxis: DEENA/SCD per primary team. Chemoprophylaxis deferred to primary Disposition: Per primary team. Plan for bronchoscopy tomorrow Admission and Anticipated Discharge Date Admission Date: January 04, 2023 Subjective Patient was seen and examined at bedside. States she feels slightly better today. She again had fever last evening but states that she did not feel it as before. No nausea or vomiting. States he had good diuresis yesterday with Lasix. Review of Systems Review of Systems: All systems reviewed & are unremarkable except as noted in Subjective Physical Exam Physical Exam: General: Sitting in chair, not in acute distress, on NC HEENT: EOMI, MIKIE, MMM Chest: Decreased but fair breath sounds bilaterally CVS: Regular rate and rhythm, normal heart sounds, no murmur Abdomen: Soft, non tender, not distended, normal bowel sounds Neuro: Awake, alert, oriented, conversing well, non focal Extremities: No cyanosis, clubbing or edema MSK: Back incision site covered with dressing- not soaked. Results & Data Results & Data Vital Signs (Past 12 Hours) Vital Signs Temp Pulse Resp BP Pulse Ox O2 Del Method O2 Flow Rate 01/10/23 07:30 36.9 C 90 19 119/75 91 Nasal Cannula 4 01/10/23 07:51 Nasal Cannula 3 01/10/23 04:30 37.7 C H 01/10/23 04:38 37.7 C H 01/10/23 03:00 38.5 C H 120 H 22 134/80 90 Nasal Cannula 3 Laboratory Results Short CBC 01/10/23 Range/Units 04:29 WBC 10.65 (4.8-10.8) K/ul Hgb 9.1 L (12.0-16.0) g/dl Hct 27.0 L (37.0-47.0) % Plt Count 343 (130-400) K/uL BMP 01/10/23 04:29 Sodium 136 Potassium 3.1 L Chloride 100 Carbon Dioxide 26 BUN 7 Creatinine 0.53 L Glucose 169 H Calcium 8.7 Diagnostic Findings Chest X-Ray 01/10/23 07:00 XR chest 1V portable CLINICAL HISTORY: f/u COMPARISON STUDY: Chest radiograph January 07, 2023. Chest CT January 08, 2023. FINDINGS: There is no pneumothorax. Small bilateral pleural effusions are noted. Cardiomediastinal silhouette is unremarkable. Interstitial thickening and bilateral opacities have progressed since chest radiograph January 07, 2023. These are similar to chest CT of January 08, 2023. IMPRESSION: 1. No significant change in interstitial thickening in bilateral airspace opacities since prior chest CT. The findings are nonspecific and differential considerations include pulmonary edema, pneumonia, hemorrhage or ARDS. 2. Small bilateral pleural effusions. ACT 112: Negative or not required by law. Electronically signed by: Virgil Jauregui M.D. 01/10/2023 7:33 AM Medications Administered Current Inpatient Medications Acetaminophen (Acetaminophen 500 Mg Tab) 1,000 mg PO Q8H PRN PRN Reason: MILD Pain Scale 1,2,3 & Pre PT Stop: 02/03/23 11:35 Last Admin: 01/10/23 03:15 Dose: 1,000 mg Al Hydrox/Mg Hydrox/Simethicone (Aluminum/Magnesium Susp 30 Ml Udc) 30 ml PO Q6H PRN PRN Reason: Dyspepsia Stop: 02/03/23 11:35 Albuterol (Albuterol Hfa Inhaler 8.5 Gm) 1 puffs INH QID PRN PRN Reason: Wheezing Bisacodyl (Bisacodyl 10 Mg Supp) 10 mg OH DAILY PRN PRN Reason: Constipation Stop: 02/03/23 11:35 Cyclobenzaprine HCl (Cyclobenzaprine Hcl 10 Mg Tab) 10 mg PO Q8H PRN PRN Reason: Muscle Spasm Stop: 02/04/23 12:52 Last Admin: 01/09/23 19:17 Dose: 10 mg Dextrose (Dextrose 50% 50 Ml Syringe) 25 - 50 ml IV UD PRN; Protocol PRN Reason: Hypoglycemia Protocol Stop: 02/03/23 12:14 Diphenhydramine HCl (Diphenhydramine Capsule 25 Mg Cap) 25 mg PO Q6H PRN PRN Reason: Allergic Rhinitis/Insomnia Stop: 02/03/23 11:35 Famotidine (Famotidine 40 Mg Tablet) 40 mg PO HS [facility]GO Stop: 02/03/23 20:59 Last Admin: 01/09/23 20:36 Dose: 40 mg Famotidine (Famotidine 20 Mg Tab) 20 mg PO Q12H PRN PRN Reason: Dyspepsia Stop: 02/03/23 11:35 Fluticasone/Vilanterol (Fluticasone/Vilanterol 200/25mcg 14 Puffs/Inhaler) 1 puffs INH DAILY [facility] Stop: 02/04/23 08:59 Last Admin: 01/10/23 08:39 Dose: 1 puffs Gabapentin (Gabapentin 300 Mg Cap) 300 mg PO TID [facility] Stop: 02/07/23 20:59 Last Admin: 01/10/23 08:37 Dose: 300 mg Glucagon (Glucagon For Inj 1 Mg Vial) 1 mg IM UD PRN; Protocol PRN Reason: Hypoglycemia Protocol Stop: 02/03/23 12:14 Glucose (Glucose 40% Gel 15 Gm Tube) 15 - 30 gm PO UD PRN; Protocol PRN Reason: Hypoglycemia Protocol Stop: 02/03/23 12:14 Glucose (Glucose 10 Tab/Tube) 4 - 8 tab PO UD PRN; Protocol PRN Reason: Hypoglycemia Protocol Stop: 02/03/23 12:14 Hydroxyzine HCl (Hydroxyzine Hcl 25 Mg Tab) 25 mg PO Q8H PRN PRN Reason: Anxiety Stop: 02/03/23 11:35 Promethazine HCl 12.5 mg/ (Sodium Chloride) 50.5 mls @ 202 mls/hr IV Q6H PRN PRN Reason: Nausea &/or Vomiting Stop: 02/03/23 11:35 Last Infusion: 01/08/23 20:49 Dose: Infused Doxycycline Hyclate 100 mg/ (Dextrose) 110 mls @ 50 mls/hr IV Q12H [facility] Stop: 01/10/23 17:14 Last Infusion: 01/10/23 07:26 Dose: Infused Meropenem 500 mg/ Syringe 10 mls @ 2 mls/min IV Q6H [facility]; Protocol Stop: 01/10/23 18:59 Last Admin: 01/10/23 06:36 Dose: 2 mls/min Influenza Virus Vaccine Quadrival (Do Not Administer Flu Vaccine) 1 each N/A PRN PRN PRN Reason: Notification Stop: 02/03/23 11:35 Insulin Aspart (Insulin Aspart Per Unit Charge) 0 units SC ACHS [facility]; Protocol Stop: 02/07/23 07:29 Last Admin: 01/10/23 08:44 Dose: 2 units Insulin Glargine (Lantus Per Unit Charge) 10 units SC DAILY [facility] Stop: 02/09/23 08:59 Last Admin: 01/10/23 08:44 Dose: 10 units Magnesium Hydroxide (Magnesium Hydroxide Susp 30 Ml Udc) 30 ml PO Q24H PRN PRN Reason: Constipation Stop: 02/03/23 11:35 Last Admin: 01/09/23 10:19 Dose: 30 ml Metoclopramide HCl (Metoclopramide Hcl Inj 5 Mg/Ml 2 Ml Vial) 10 mg IV Q6H PRN PRN Reason: Nausea &/or Vomiting Stop: 02/03/23 11:35 Last Admin: 01/09/23 07:50 Dose: 10 mg Metoprolol Tartrate (Metoprolol Tartrate 25 Mg Tab) 12.5 mg PO BID [facility] Stop: 02/08/23 20:59 Last Admin: 01/10/23 08:37 Dose: 12.5 mg Mirtazapine (Mirtazapine Tab 15 Mg Tab) 15 mg PO HS [facility] Stop: 02/03/23 20:59 Last Admin: 01/09/23 20:36 Dose: 15 mg Miscellaneous (Remove Nicoderm Patch) 1 each N/A DAILY@0859 [facility] Stop: 02/04/23 08:58 Last Admin: 01/10/23 08:38 Dose: Not Given Miscellaneous (Carbohydrates For Hypoglycemia ) 15 - 30 gm PO UD PRN PRN Reason: Hypoglycemia Treatment Stop: 02/03/23 12:14 Miscellaneous Information (Pharmacy Glycemic Mgmt Consult) 1 each N/A UD PRN PRN Reason: Consult Stop: 02/03/23 11:35 Naloxone HCl (Naloxone Hcl 0.4 Mg/1 Ml Vial/Carp) 0.1 mg IV Q5M PRN PRN Reason: Oversedation/Resp depression Stop: 02/03/23 11:35 Nicotine (Nicotine 14 Mg/24 Hr Patch) 14 mg TD QAM [facility] Stop: 02/03/23 09:59 Last Admin: 01/10/23 08:38 Dose: Not Given Ondansetron HCl (Ondansetron Inj 2 Mg/Ml 2 Ml Vial) 4 mg IV Q6H PRN PRN Reason: Nausea &/or Vomiting Stop: 02/03/23 11:35 Last Admin: 01/09/23 12:32 Dose: 4 mg Ondansetron HCl (Ondansetron 4 Mg Od Tab) 4 mg PO Q6H PRN PRN Reason: Nausea Stop: 02/03/23 11:35 Last Admin: 01/10/23 07:30 Dose: 4 mg Oxycodone HCl (Oxycodone Hcl Ir 5 Mg Tab (Immediate Release)) 5 - 10 mg PO Q4H PRN PRN Reason: Pain & Pre PT Stop: 01/18/23 11:35 Last Admin: 01/10/23 07:31 Dose: 10 mg Pantoprazole Sodium (Pantoprazole 40 Mg Tab) 40 mg PO QAM [facility] Stop: 02/04/23 08:59 Last Admin: 01/10/23 08:38 Dose: 40 mg Pneumococcal Polyvalent Vaccine (Do Not Administer Pneumococcal Vaccine) 1 each N/A PRN PRN PRN Reason: Notification Stop: 02/03/23 11:35 Polyethylene Glycol (Polyethylene (Miralax) 17 Gm Pack) 17 gm PO DAILY PRN PRN Reason: Constipation Stop: 02/07/23 08:59 Potassium Chloride (Potassium Chloride Crtab 20 Meq Tabcr) 40 meq PO DAILY [facility] Stop: 01/12/23 08:59 Last Admin: 01/10/23 08:44 Dose: 40 meq Quetiapine Fumarate (Quetiapine Fumarate 200 Mg Tab) 200 mg PO BID [facility] Stop: 02/07/23 20:59 Last Admin: 01/10/23 08:37 Dose: 200 mg Senna/Docusate Sodium (Docusate Sodium/Senna 50/8.6mg Tab) 2 tab PO HS [facility] Stop: 02/03/23 20:59 Last Admin: 01/09/23 16:33 Dose: 2 tab Sodium Biphosphate/Sodium Phosphate (Sod Phosphate/Sod Biphosphate Enema 132 Ml Btl) 132 ml OH ONE PRN PRN Reason: Constipation Stop: 02/03/23 11:35 Umeclidinium Talmage (Umeclidinium Talmage 62.5mcg/Blister 7 Puffs/Inhaler) 1 puffs INH DAILY [facility] Stop: 02/08/23 12:14 Last Admin: 01/10/23 08:39 Dose: 1 puffs
[2023-01-10] MEDS ORDERED: POTASSIUM CHLORIDE CRTAB 20 MEQ TABCR PO ONE (12:15)
[2023-01-10] MEDS: ONDANSETRON INJ 2 MG/ML 2 ML VIAL IV PRN (18:37)
[2023-01-10] MEDS: MIRTAZAPINE TAB 15 MG TAB PO SCH (20:05)
[2023-01-10] MEDS: FAMOTIDINE 40 MG TABLET PO SCH (20:06)
[2023-01-10] MEDS: DOCUSATE SODIUM/SENNA 50/8.6MG TAB PO SCH (20:09)
[2023-01-11] MEDS: MEROPENEM 500 MG in SYRINGE 0 ML IV SCH ×4 (01:41→20:42)
[2023-01-11] MEDS: ACETAMINOPHEN 500 MG TAB PO PRN (03:16)
[2023-01-11] MEDS: DOXYCYCLINE HYCLATE 100 MG in DEXTROSE 5% 100 ML IV SCH ×2 (05:01→16:02)
[2023-01-11 06:49] LABS: Calcium 8.2 mg/dl (8.6-10.3); Magnesium 1.7 mg/dl (1.7-2.4); Potassium 3.7 mmol/L (3.5-5.1)
[2023-01-11 06:55] LABS: BUN Creatinine Ratio 18.2 (10-20); Creatinine Clr Calc Pharmacy 163.5 ml/min; Est GFR (African American) 130.8 ml/min; Est GFR (Non-African American) 112.8 ml/min
[2023-01-11 07:00] LABS: INR 1.2 (0.9-1.1); Partial Thromboplastin Ratio 0.7; Partial Thromboplastin Time 20.4 Seconds (21.0-31.0); Prothrombin Time 12.7 Seconds (9.0-12.0)
--- NOTE | 2023-01-11 07:17 | Pulmonology Progress Note ---
Date of Service January 11, 2023 Assessment & Plan (1) Acute respiratory failure with hypoxia: (2) Tobacco abuse: (3) COPD with emphysema: (4) Pleural effusion: (5) Abnormal chest CT: Plan CT chest 01/08/2023 personally reviewed: Diffuse patchy groundglass opacities appreciated bilaterally upper and lower lobes Minimal emphysema Small bilateral pleural effusion Minimal mediastinal lymphadenopathy 2D echo 01/09/2023: EF 65-70%, RV normal in size and function -- Acute hypoxic respiratory failure Likely secondary to multilobar pneumonia BNP 268, procalcitonin 0.29 Nasal MRSA negative SARS NAAT negative Respiratory bio fire 01/09/2023 negative The findings could be secondary to infection or acute pulmonary edema especially given bilateral pleural effusion Noninfectious etiologies like autoimmune processes can also be in the differential along with diffuse alveolar hemorrhage, NSIP Follow-up autoimmune work-up Patient's hemoglobin baseline is around 13. She has been hovering around 10 as of 01/05/2023 No personal or family history of autoimmune disease like lupus, sarcoid, Sjogren's, rheumatoid --COPD On Breo at home c/w Incruse Plan: In/out: - 550, urine output 1150 mL, -3.7 L since coming to the hospital Continue with Incruse and breo BiPAP nightly and as needed shortness of breath Bronchoscopy today. Case was discussed with RN at bedside Please note the above document was generated using voice recognition software. It may contain grammatical, syntax or spelling errors.Any formal questions or concerns about the content, text or information contained within the body of this dictation should be directly addressed to the provider for clarification. Admission and Anticipated Discharge Date Admission Date: January 04, 2023 Subjective Patient seen and examined at bedside. No acute distress, no adverse events overnight She says that she is feeling better compared to before Is coughing, not bringing up any phlegm No nausea vomiting She is n.p.o. for bronchoscopy today Review of Systems Review of Systems: All systems reviewed & are unremarkable except as noted in Subjective Physical Exam Physical Exam: Constitutional: No acute distress HEENT: EOMI, PERRLA Respiratory system: Decreased air entry bilaterally, no rhonchi, no wheeze, positive crackles bilaterally (improved from before) CVS: S1-S2 positive, no murmurs or gallops Abdomen: Soft, nontender, nondistended, positive bowel sounds x4, obese Extremities: +2 pulses bilaterally radialis/ dorsalis pedis, no cyanosis, +1 edema bilateral lower extremity Neuro: Awake alert oriented x3 Psych: Normal mood and affect G/U: No Pride Skin: no rashes, warm and dry Lymphatic: no cervical or axillary lymphadenopathy Results & Data Results & Data Vital Signs (Past 12 Hours) Vital Signs Temp Pulse Pulse Pulse Resp BP Pulse Ox 01/11/23 02:50 37.6 C H 116 H 20 120/61 90 01/10/23 22:40 87 22 93 01/10/23 23:00 36.8 C 96 H 22 114/78 95 01/10/23 20:06 O2 Del Method O2 Flow Rate 01/11/23 02:50 Nasal Cannula 4 01/10/23 22:40 5 01/10/23 23:00 CPAP 01/10/23 20:06 Nasal Cannula 5 Laboratory Results 01/11/23 06:10 PG Care Time/CCT Total # of Minutes Spent Total Time Spent with Patient: Total time spent is greater than 50% in coordination of care (as documented) at patient's floor/unit and/or counseling patient: Coding Level of Care Code 23549 SUB INP/OBS CARE 3/50MIN Diagnoses Acute respiratory failure with hypoxia J96.01 Tobacco abuse Z72.0 COPD with emphysema J43.9 Pleural effusion J90 Abnormal chest CT R93.89
[2023-01-11 07:27] LABS: Hematocrit (blood only) 26.8 % (37.0-47.0); Hemoglobin 9.5 g/dl (12.0-16.0); Mean Corpuscular Hemoglobin 31.9 pg (25.0-34.0); Mean Corpuscular Hgb Conc 35.4 g/dL (32.0-36.0); Mean Corpuscular Volume 89.9 fL (80.0-100.0); Mean Platelet Volume 9.6 fL (9.4-12.4); Platelet Count 445 K/uL (130-400); RDW Coefficient of Variation 13.2 % (11.5-14.5); RDW Standard Deviation 43.4 fL (36.4-46.3); Red Blood Count 2.98 M/uL (4.20-5.40); White Blood Count 11.71 K/ul (4.8-10.8)
[2023-01-11] MEDS ORDERED: fentaNYL citrate PF 100 MCG/2 ML VIAL ONE (07:41)
[2023-01-11] MEDS ORDERED: MIDAZOLAM HCL 5 MG/ML 1 ML VIAL ONE ×2 (07:42→08:19)
--- NOTE | 2023-01-11 07:59 | Pre Anesthesia Assessment ---
Date of Service January 11, 2023 Pre Sedation Assessment Vital Signs Temp Pulse Pulse Pulse Resp BP BP 01/11/23 07:48 94 H 18 100/72 01/11/23 07:38 36.6 C 101 H 19 116/71 01/11/23 07:28 01/11/23 02:50 37.6 C H 116 H 20 120/61 01/10/23 22:40 87 22 01/10/23 23:00 36.8 C 96 H 22 114/78 01/10/23 20:06 01/10/23 19:00 36.7 C 98 H 19 101/69 01/10/23 14:03 38.1 C H 111 H 18 116/72 01/10/23 12:20 36.9 C 108 H 18 138/84 Pulse Ox O2 Del Method O2 Flow Rate 01/11/23 07:48 100 Oxymask 4 01/11/23 07:38 93 Nasal Cannula 4 01/11/23 07:28 Nasal Cannula 4 01/11/23 02:50 90 Nasal Cannula 4 01/10/23 22:40 93 5 01/10/23 23:00 95 CPAP 01/10/23 20:06 Nasal Cannula 5 01/10/23 19:00 95 Nasal Cannula 5 01/10/23 14:03 94 Oxymask 4 01/10/23 12:20 97 Oxymask 7 Pre-Sedation Airway Assessment Smoking Status: Current every day smoker Short, Thick Neck: No Thyromental Distance: > or= 3.5 Finger Breadths Oral Cavity: + Dentures Mallampati Class: II ASA: ASA3 NPO Status Date of Last Intake of Fluids: 01/11/23 Time of Last Intake of Fluids: 06:00 Date of Last Intake of Solid Food: 01/10/23 Procedure Planning Contraindications for Sedation: none Current Medications Reviewed: Yes Notes The planned sedation has been discussed with the patient. Informed Consent was obtained. I have identified the patient, determined the appropriateness of sedation and have assessed the patient immediately prior to the procedure. All medicine(s) and interventions are by my order.
--- NOTE | 2023-01-11 08:42 | Post Anesthesia Assessment ---
Date of Service January 11, 2023 Post Sedation Assessment Vital Signs Temp Pulse Pulse Pulse Resp BP BP 01/11/23 08:25 102 H 17 154/85 H 01/11/23 08:20 93 H 14 130/77 01/11/23 08:15 94 H 20 102/69 01/11/23 08:10 95 H 20 117/72 01/11/23 07:48 94 H 18 100/72 01/11/23 07:38 36.6 C 101 H 19 116/71 01/11/23 07:28 01/11/23 02:50 37.6 C H 116 H 20 120/61 01/10/23 22:40 87 22 01/10/23 23:00 36.8 C 96 H 22 114/78 01/10/23 20:06 01/10/23 19:00 36.7 C 98 H 19 101/69 01/10/23 14:03 38.1 C H 111 H 18 116/72 01/10/23 12:20 36.9 C 108 H 18 138/84 Pulse Ox O2 Del Method O2 Flow Rate 01/11/23 08:25 93 Oxymask 10 01/11/23 08:20 96 Oxymask 10 01/11/23 08:15 98 Oxymask 10 01/11/23 08:10 97 Oxymask 10 01/11/23 07:48 100 Oxymask 4 01/11/23 07:38 93 Nasal Cannula 4 01/11/23 07:28 Nasal Cannula 4 01/11/23 02:50 90 Nasal Cannula 4 01/10/23 22:40 93 5 01/10/23 23:00 95 CPAP 01/10/23 20:06 Nasal Cannula 5 01/10/23 19:00 95 Nasal Cannula 5 01/10/23 14:03 94 Oxymask 4 01/10/23 12:20 97 Oxymask 7 Recovery Score Activity: Moves 4 extremities Respiration: Deep Breath/Cough Circulation: +/-20% PreAnes Value Consciousness: Fully Awake Oxygen Saturation: O2 needed for >90% Post Anesthesia Score: 9 Discharge Sedation Level of Care: Fast Track Phase II Post Sedation Plan On clinical assessment, the patient appears to have tolerated the sedation without complications. Patient is recovering as anticipated. Patient will continue to be monitored by nursing and may be discharged when sedation discharge criteria are met per below protocol. Upon Completions of procedure up to 15 minutes continue every 5 minute vital signs and the P.A.R. score; then discharge to a Phase I or Fast Track to Phase II per the following guidelines: * Discharge Patient to appropriate Phase II area if PAR is 8 or greater or return to pre- procedure baseline. The post - procedure orders will be as directed. * If PAR score is less than 8 or not return to pre-procedure baseline then patient will follow Phase I monitoring till PAR is reached for Phase II. The Phase I may be done in procedure room or may call to secure a Phase I area. * If naloxone or flumazenil are used for reversal, hold in Phase I for continued monitoring from when last reversal dose was given for a minimum of 60 minutes or longer pending the nurse and/or physician discretion of patient condition before discharge to Phase II. Please call the Sedation Physician to re-evaluate and complete post-note for discharge to Phase II area. Do NOT discharge from procedure sedation or Phase 1 until post- sedation evaluation note is complete by procedure /sedation MD Sedation Discharge Instructions to be given to the patient at discharge to home.
--- NOTE | 2023-01-11 08:50 | Procedure Note ---
Procedure Note: Bronchoscopy Procedure PREOPERATIVE DIAGNOSIS: Abnormal CT chest with diffuse groundglass infiltrates POSTOPERATIVE DIAGNOSIS: Normal CT chest with diffuse groundglass infiltrates PROCEDURE PERFORMED: Flexible fiberoptic bronchoscopy with bronchoalveolar lavage and transbronchial biopsies COMPLICATIONS: None. INDICATION: Rule out infection, diffuse alveolar hemorrhage PROCEDURE: After obtaining an informed consent, the patient was brought to the Bronchoscopy Suite. The patient had appropriate oxygen, blood pressure, heart rate, and respiratory rate monitoring applied and monitored continuously throughout the procedure. Supplemental oxygen via nasal cannula as per nursing records was applied to the nasopharynx with adequate saturations achieved. Topical anesthesia with nebulized 1% lidocaine was achieved. Subsequent to this, the patient was premedicated with 5 mg of midazolam and 125 mcg of fentanyl. Upper Airway: The oropharynx and larynx were well visualized and showed mild edema. There was normal vocal cord motion without masses or lesions. Additional topical anesthesia with 1% lidocaine was applied to the trachea and alina. The trachea appeared normal.The bronchoscope was then advanced through the alina, which was sharp. The scope was then advanced into the right main stem and each segment, subsegement in the right upper lobe, right middle lobe and right lower lobe were visualized. There was moderate amount of grayish-yellow secretions in the right upper as well as right main which were suctioned out. There were no other findings including evidence of mass, anatomic distortions, or hemorrhage. The bronchoscope was subsequently withdrawn and advanced into the left mainstem. Again, each segment and subsegment was well visualized. No specific masses or other lesions were identified throughout the tracheobronchial tree on the left. There were minimal amount of clear secretions which were suctioned out The bronchoscope was then wedged in the right upper lobe and bronchoalveolar lavage samples were obtained.80 ml of saline was instilled and 40 ml of fluid was aspirated back.The bronchoscope was withdrawn and the area was suctioned clear. The bronchoscope was then wedged in the right middle lobe and sequential BAL aliquots were obtained. 180 ml of saline was instilled and 80 ml of fluid was aspirated back.The bronchoscope was withdrawn and the area was suctioned clear. It did not show any signs of diffuse alveolar hemorrhage The bronchoscope was then re-advanced into the right middle lobe and multiple transbronchial biopsies were taken. Minimal hemorrhage was identified and suctioned clear without difficulty. The bronchoscope was then withdrawn to the mainstem. The area was suctioned clear. The bronchoscope was then withdrawn. The patient tolerated the procedure well without evidence of desaturation or complications. Bronchoalveolar lavage samples were sent for cell count, Gram stain and bacterial culture, AFB culture and smear, fungal culture and smear,( histoplasma, Blastomyces, Coccidioides and cryptococcal PCR) and cytology. Transbronchial biopsies were sent for tissue culture (bacteria, AFB and fungal) and pathology. Recommendations: Follow-up micro, cytology and pathology Follow-up chest x-ray Please note the above document was generated using voice recognition software. It may contain grammatical, syntax or spelling errors.Any formal questions or concerns about the content, text or information contained within the body of this dictation should be directly addressed to the provider for clarification. [facility] [place] Procedure Codes (Charges) Pulmonary/Thoracic Procedure 1: Pulmonary and Thoracic: 53932 Dx bronchoscopy/BAL Procedure 2: Pulmonary and Thoracic: 70888 Bronchoscopy w/ transbronchial lung bx Sedation/Anesthesia Procedure 1: Sedation/Anesthesia: 75406 Mod Sedation by the same physician;Init15 Min Child Age 5 & Up Total Sedation Time (minutes): 14
[2023-01-11] MEDS: INSULIN ASPART PER UNIT CHARGE SC SCH ×4 (09:00→20:36)
--- NOTE | 2023-01-11 09:33 | XRay Report ---
XR chest 1V portable CLINICAL HISTORY: post bronchoscopy TECHNIQUE: Single frontal radiograph of the chest was obtained. Comparison: Comparison is made to chest radiograph 01/10/2023 FINDINGS: No lines and tubes are seen. The cardiomediastinal silhouette is normal. Interval minimal improvement in bilateral airspace opacities. Interstitial thickening is again noted. No evidence of pleural effu sylvain or pneumothorax. IMPRESSION: Interval mild improvement in multifocal airspace opacities. No pneumothorax status post bronchoscopy. ACT 112: Negative or not required by law. Electronically signed by: Nicho Shea M.D. 01/11/2023 9:31 AM
[2023-01-11] MEDS: FLUTICASONE/VILANTEROL 200/25MCG 14 PUFFS/INHALER INH SCH (09:41)
[2023-01-11] MEDS: UMECLIDINIUM BROMIDE 62.5MCG/BLISTER 7 PUFFS/INHALER INH SCH (09:42)
[2023-01-11] MEDS: oxyCODONE HCL IR 5 MG TAB (IMMEDIATE RELEASE) PO PRN ×3 (09:47→20:37)
[2023-01-11] MEDS: PANTOprazole 40 MG TAB PO SCH (09:49)
[2023-01-11] MEDS: METOPROLOL TARTRATE 25 MG TAB PO SCH ×2 (09:50→20:35)
[2023-01-11] MEDS: NICOTINE 14 MG/24 HR PATCH TD SCH (09:50)
[2023-01-11] MEDS: POTASSIUM CHLORIDE CRTAB 20 MEQ TABCR PO SCH (09:52)
[2023-01-11] MEDS: GABAPENTIN 300 MG CAP PO SCH ×3 (09:53→20:35)
[2023-01-11 11:14] LABS: Basophil Body Fluid Man 3 %; Eosinophil Body Fluid Man 6 %; Fluid Mono/Macrophage 31 %; Lymphocyte Body Fluid Man 1 %; Neutrophil Body Fluid Man 59 %
--- NOTE | 2023-01-11 11:54 | Electrocardiogram Report ---
Test Reason : Blood Pressure : / mmHG Vent. Rate : 108 BPM Atrial Rate : 108 BPM P-R Int : 120 ms QRS Dur : 080 ms QT Int : 330 ms P-R-T Axes : 068 047 -10 degrees QTc Int : 442 ms Sinus tachycardia Nonspecific ST and T wave abnormality Abnormal ECG No previous ECGs available Confirmed by Juventino Stubbs ([id number]) on 01/11/2023 11:53:55 AM Referred By: David Dimas Confirmed By:Juventino Stubbs
--- NOTE | 2023-01-11 12:24 | Pharmacy Report ---
Pharmacy Glycemic Short Note 2 - Date of Service January 11, 2023 - Glycemic Short BSG Results (Last 24 hours): 01/10/23 01/10/23 01/11/23 16:55 20:56 06:10 Glucose 154 H POC Glucose 141 H 122 H 01/11/23 11:51 Glucose POC Glucose 173 H OUTPATIENT ANTIDIABETIC REGIMEN: * Metformin 500 mg PO BIDM * HbA1c: 6.1% (12/28/22) ASSESSMENT: 01/11/23 * Patient's BSGs yesterday were [phone] mg/dL and patient received 20 units of insulin (10 units of basal and 10 units of bolus). * Fasting today is 154 mg/dL. Patient is NPO for bronch today. * Hold Lantus today due to NPO status. * Continue insulin otherwise. 01/10/23 * Patient's BSGs yesterday were [phone] mg/dL. Patient received 7 units of Novolog yesterday. * Fasting today is 168 mg/dL. * Start Lantus 10 units daily for BSG > 180 mg/dL. * Continue Novolog. * Continue to hold metformin as patient received contrast 01/08/23. 01/08: * Total 35 units of insulin received yesterday; 20 units basal and 15 units bolus. BSGs yesterday were [phone] mg/dl. * BSGs trended down in the evening. IV Dex was discontinued. * Fasting BSG today AM was elevated at 168 mg/dl. Since patient is not eating well and steroid was discontinued, will hold off on adding basal insulin at this time. * Novolog parameters tightened slightly with lunch. 01/07: * Lorie received 32 units of insulin yesterday with good glycemic control * 20 units Lantus + 12 units Novolog * BSGs: 128, 195, 154, 176, 145 mg/dL * Fasting BSG of 219 mg/dL this morning. Initially, I had discontinued the patients Lantus order because her daily dose of dexamethasone was discontinued overnight. However, a one time dose of dexamethasone was given around 0200 (likely the cause of BSG increase from 125 -219 mg/dL), therefore Lantus was resumed x 1 dose. No further dexamethasone ordered at this time. 01/05: * Lorie received 39 units of insulin postop yesterday, 30 units basal + 9 units bolus. BSGs were: [phone] mg/dL. * Fasting BSG controlled at 111 mg/dL this AM. Tolerating diet. * Given reduced dose of IV dexamethasone that will be administered over the next 3 days, will empirically reduced basal dose. Empirically reduced bolus parameters as well given trend down in BSG last evening. 01/04: * 57 yo F admitted postoperatively on 01/04/23 following a L3-L5 decompression and fusion. Pharmacy has been consulted to assist with inpatient glycemic management. Patient is a well controlled Type 2 diabetic as an outpatient. Please refer to outpatient regimen and most recent HbA1c above. * Preop BSG was 140 mg/dL while postop BSGs were 137-158 mg/dL. Received 12 mg of IV dexamethasone intraoperatively. Will continue on 6 mg of IV dexamethasone daily for the next 3 days. Ordered a T2DM diet. Will monitor how patient tolerates diet postop. * Giving a full weight/stress of 2 basal dose now to cover steroids. Reassess basal dose in the AM. Starting bolus based on weight/stress of 3. Added an overnight check for tonight. PLAN FOR INPATIENT GLYCEMIC CONTROL: * Hold outpatient oral diabetes medications * Basal insulin * Lantus 10 units daily * Bolus insulin * NovoLog per scale ACHS or Q6hrs while NPO * Goal Range: Low 110 mg/dL - High 140 mg/dL * Correction Factor: 25 mg/dL/unit * Nutritional / Prandial insulin per carb ratio of 1 unit per 8 grams CHO consumed
--- NOTE | 2023-01-11 12:28 | Orthopedic Progress Note ---
Date of Service January 11, 2023 Assessment & Plan (1) Neurogenic claudication due to lumbar spinal stenosis: Plan: At this time encouraged her to continue ambulation as tolerated to sit in chair is much as possible. We will await the results of her [facility] and hopefully work towards discharge in the next few days. Admission and Anticipated Discharge Date Admission Date: January 04, 2023 Subjective Patient is comfortable at this time. She states her back pain is controlled denies shortness of breath. Physical Exam Physical Exam: On exam she does have good strength testing. Results & Data Vital Signs (Past 12 Hours) Vital Signs Temp Pulse Pulse Pulse Resp BP BP 01/11/23 12:12 36.6 C 91 H 20 106/67 01/11/23 09:55 36.8 C 102 H 18 114/79 01/11/23 09:15 104 H 20 121/69 01/11/23 08:10 01/11/23 09:00 105 H 20 112/73 01/11/23 08:45 104 H 20 124/72 01/11/23 08:30 103 H 16 105/64 01/11/23 08:25 102 H 17 154/85 H 01/11/23 08:20 93 H 14 130/77 01/11/23 08:15 94 H 20 102/69 01/11/23 08:10 95 H 20 117/72 01/11/23 07:48 94 H 18 100/72 01/11/23 07:38 36.6 C 101 H 19 116/71 01/11/23 07:28 01/11/23 02:50 37.6 C H 116 H 20 120/61 Pulse Ox O2 Del Method O2 Flow Rate 01/11/23 12:12 95 Nasal Cannula 4 01/11/23 09:55 94 Nasal Cannula 3 01/11/23 09:15 96 Oxymask 4 01/11/23 08:10 Oxymask 01/11/23 09:00 97 Oxymask 4 01/11/23 08:45 96 Oxymask 4 01/11/23 08:30 96 Oxymask 4 01/11/23 08:25 93 Oxymask 10 01/11/23 08:20 96 Oxymask 10 01/11/23 08:15 98 Oxymask 10 01/11/23 08:10 97 Oxymask 10 01/11/23 07:48 100 Oxymask 4 01/11/23 07:38 93 Nasal Cannula 4 01/11/23 07:28 Nasal Cannula 4 01/11/23 02:50 90 Nasal Cannula 4
[2023-01-11] MEDS: QUEtiapine FUMARATE 200 MG TAB PO SCH ×2 (12:58→20:35)
[2023-01-11] MEDS: ONDANSETRON 4 MG OD TAB PO PRN (16:01)
--- NOTE | 2023-01-11 16:19 | Hospitalist Progress Note ---
Date of Service January 11, 2023 Assessment & Plan (1) Neurogenic claudication due to lumbar spinal stenosis: (2) Fever: (3) Hypotension: (4) Acute blood loss anemia: (5) Pre-diabetes: (6) Tobacco abuse: (7) Anxiety: (8) Depression: (9) GERD (gastroesophageal reflux disease): Plan Neurogenic claudication due to lumbar spinal stenosis: - Status post L3-L5 decompression and fusion on 01/04/2023. On POD 1; patient was found to have significant hypotension and had 2 episode of fever. Started on fluid bolus and antibiotics. -Further management including DVT prophylaxis, pain, activities and diet per primary team -Back pain seems to be reasonably controlled still has some radiation of pain -Advised to continue with PT and OT as per primary Acute hypoxic respite failure-due to pneumonia and pulm edema. Fever/abnormal CT chest- likely pulmonary source. Blood clx negative, Urine clx negative, resp biofire negative, lyme negative. Per ortho, expected post op findings in CT at surgical site. CT C/A/P 1. There is no evidence of pulmonary embolus in the main, lobar, or segmental pulmonary arteries. 2. Interlobular septal thickening suggests fluid overload/congestive failure. Correlate clinically. 3. Small pleural effusions. 4. Emphysema. 5. Multifocal groundglass consolidation is seen throughout both lungs. This could represent pulmonary edema, multifocal pneumonia, pulmonary hemorrhage, and/or ARDS. Clinical correlation will be essential. 6. There is heterogeneous enhancement of the right kidney. This is nonspecific and could be seen in the setting of pyelonephritis. There are also tiny foci of gas within the bladder lumen. Correlate with clinical findings and urinalysis. 7. There is postsurgical change from laminectomy and posterior fusion seen at L3-L5. The orthopedic hardware appears intact. 8. There is a large postoperative fluid collection seen posteriorly at the operative level which contains foci of as detailed above. This likely represents a postoperative seroma. The sterility of this fluid cannot be assessed by imaging and clinical correlation will be required. 9. A portion of this fluid collection extends into the central canal and effaces the right posterior aspect of the thecal sac at L3-L4. Correlate for evidence of clinically significant central canal compromise. 10. Left transverse process fracture of L3. 11. Hepatomegaly. 12. There is a small volume of nonspecific free fluid in the pelvis. 13. Mildly enlarged mediastinal and hilar lymph nodes are nonspecific and may be reactive. Received IV Lasix Noted to be hypotensive which resolved subsequently Was on empiric vanc/zosyn but was still spiking fever. Changed to meropenem/doxy but still with fever Appreciate pulmonary input and recommendation- recommendations noted. Plan for bronchoscopy tomorrow-n.p.o. after midnight. Autoimmune work-up in process given her CT chest findings Status post bronchoscopy on 01/11/2023-pending results Patient remains stable as of today Hypokalemia-repleted, recheck in Acute blood loss anemia: postsurgery Hb 13->10. H&H has been stable since then. Hemoglobin remains stable at 9.5 as of 01/11/2023 Will monitor Pre-diabetes: HA1c 6.1 12/2022. Metformin on hold. Being managed by glycemic pharmacist Tobacco abuse: Patient declined nicotine patch Anxiety/Depression: On Mirtazapine; continue GERD (gastroesophageal reflux disease): Continue PPI and H2 jeannette DVT prophylaxis: DEENA/SCD per primary team. Chemoprophylaxis deferred to primary Disposition: Per primary team. Admission and Anticipated Discharge Date Admission Date: January 04, 2023 Subjective 01/11/2023 The patient was seen and examined in telemetry unit She has been feeling much better today very still requiring 4 L to maintain saturation Minimal cough, no chest pain and/or palpitation and no shortness of breath at rest Review of Systems Review of Systems: All systems reviewed and are unremarkable except as noted below Physical Exam Physical Exam: Lying in bed comfortably Constitutional: well developed, well nourished, + ill appearing and + obese Eyes: PERRL, conjunctivae normal, anicteric sclerae ENMT: external ear and nose normal, oropharynx normal Neck: trachea midline, no thyromegaly Respiratory: no respiratory distress Auscultation: + diminished lung sounds and + crackles (Bibasilar crackles) Cardiovascular: Rate/Rhythm: regular rate and regular rhythm; not tachycardic Heart Sounds: normal S1 and normal S2; no murmur Extremities: no edema Gastrointestinal (Abdomen): Inspection/Auscultation: normal bowel sounds; abdomen not distended Percussion/Palpation: abdomen soft; abdomen nontender Musculoskeletal: Significant back pain but no other arthritis involving any of the joint Neurologic: normal touch/pain/proprioception and moves all extremities; no focal motor deficits Lymphatic: no cervical or axillary lymphadenopathy Results & Data Results & Data Vital Signs (Past 12 Hours) Vital Signs Temp Pulse Pulse Pulse Resp BP BP 01/11/23 12:12 36.6 C 91 H 20 106/67 01/11/23 09:55 36.8 C 102 H 18 114/79 01/11/23 09:15 104 H 20 121/69 01/11/23 08:10 01/11/23 09:00 105 H 20 112/73 01/11/23 08:45 104 H 20 124/72 01/11/23 08:30 103 H 16 105/64 01/11/23 08:25 102 H 17 154/85 H 01/11/23 08:20 93 H 14 130/77 01/11/23 08:15 94 H 20 102/69 01/11/23 08:10 95 H 20 117/72 01/11/23 07:48 94 H 18 100/72 01/11/23 07:38 36.6 C 101 H 19 116/71 01/11/23 07:28 Pulse Ox O2 Del Method O2 Flow Rate 01/11/23 12:12 95 Nasal Cannula 4 01/11/23 09:55 94 Nasal Cannula 3 01/11/23 09:15 96 Oxymask 4 01/11/23 08:10 Oxymask 01/11/23 09:00 97 Oxymask 4 01/11/23 08:45 96 Oxymask 4 01/11/23 08:30 96 Oxymask 4 01/11/23 08:25 93 Oxymask 10 01/11/23 08:20 96 Oxymask 10 01/11/23 08:15 98 Oxymask 10 01/11/23 08:10 97 Oxymask 10 01/11/23 07:48 100 Oxymask 4 01/11/23 07:38 93 Nasal Cannula 4 01/11/23 07:28 Nasal Cannula 4 Laboratory Results Short CBC 01/11/23 Range/Units 06:10 WBC 11.71 H (4.8-10.8) K/ul Hgb 9.5 L (12.0-16.0) g/dl Hct 26.8 L (37.0-47.0) % Plt Count 445 H (130-400) K/uL BMP 01/11/23 06:10 Sodium 137 Potassium 3.7 Chloride 101 Carbon Dioxide 28 BUN 8 Creatinine 0.44 L Glucose 154 H Calcium 8.2 L Medications Administered Current Inpatient Medications Acetaminophen (Acetaminophen 500 Mg Tab) 1,000 mg PO Q8H PRN PRN Reason: MILD Pain Scale 1,2,3 & Pre PT Stop: 02/03/23 11:35 Last Admin: 01/11/23 03:16 Dose: 1,000 mg Al Hydrox/Mg Hydrox/Simethicone (Aluminum/Magnesium Susp 30 Ml Udc) 30 ml PO Q6H PRN PRN Reason: Dyspepsia Stop: 02/03/23 11:35 Albuterol (Albuterol Hfa Inhaler 8.5 Gm) 1 puffs INH QID PRN PRN Reason: Wheezing Bisacodyl (Bisacodyl 10 Mg Supp) 10 mg OH DAILY PRN PRN Reason: Constipation Stop: 02/03/23 11:35 Cyclobenzaprine HCl (Cyclobenzaprine Hcl 10 Mg Tab) 10 mg PO Q8H PRN PRN Reason: Muscle Spasm Stop: 02/04/23 12:52 Last Admin: 01/09/23 19:17 Dose: 10 mg Dextrose (Dextrose 50% 50 Ml Syringe) 25 - 50 ml IV UD PRN; Protocol PRN Reason: Hypoglycemia Protocol Stop: 02/03/23 12:14 Diphenhydramine HCl (Diphenhydramine Capsule 25 Mg Cap) 25 mg PO Q6H PRN PRN Reason: Allergic Rhinitis/Insomnia Stop: 02/03/23 11:35 Famotidine (Famotidine 40 Mg Tablet) 40 mg PO HS [facility] Stop: 02/03/23 20:59 Last Admin: 01/10/23 20:06 Dose: 40 mg Famotidine (Famotidine 20 Mg Tab) 20 mg PO Q12H PRN PRN Reason: Dyspepsia Stop: 02/03/23 11:35 Fluticasone/Vilanterol (Fluticasone/Vilanterol 200/25mcg 14 Puffs/Inhaler) 1 puffs INH DAILY [facility] Stop: 02/04/23 08:59 Last Admin: 01/11/23 09:41 Dose: 1 puffs Gabapentin (Gabapentin 300 Mg Cap) 300 mg PO TID [facility] Stop: 02/07/23 20:59 Last Admin: 01/11/23 13:06 Dose: 300 mg Glucagon (Glucagon For Inj 1 Mg Vial) 1 mg IM UD PRN; Protocol PRN Reason: Hypoglycemia Protocol Stop: 02/03/23 12:14 Glucose (Glucose 40% Gel 15 Gm Tube) 15 - 30 gm PO UD PRN; Protocol PRN Reason: Hypoglycemia Protocol Stop: 02/03/23 12:14 Glucose (Glucose 10 Tab/Tube) 4 - 8 tab PO UD PRN; Protocol PRN Reason: Hypoglycemia Protocol Stop: 02/03/23 12:14 Hydroxyzine HCl (Hydroxyzine Hcl 25 Mg Tab) 25 mg PO Q8H PRN PRN Reason: Anxiety Stop: 02/03/23 11:35 Promethazine HCl 12.5 mg/ (Sodium Chloride) 50.5 mls @ 202 mls/hr IV Q6H PRN PRN Reason: Nausea &/or Vomiting Stop: 02/03/23 11:35 Last Infusion: 01/08/23 20:49 Dose: Infused Doxycycline Hyclate 100 mg/ (Dextrose) 110 mls @ 50 mls/hr IV Q12H [facility] Stop: 01/15/23 23:59 Last Admin: 01/11/23 16:02 Dose: 50 mls/hr Meropenem 500 mg/ Syringe 10 mls @ 2 mls/min IV Q6H [facility]; Protocol Stop: 01/15/23 23:59 Last Admin: 01/11/23 13:04 Dose: 2 mls/min Influenza Virus Vaccine Quadrival (Do Not Administer Flu Vaccine) 1 each N/A PRN PRN PRN Reason: Notification Stop: 02/03/23 11:35 Insulin Aspart (Insulin Aspart Per Unit Charge) 0 units SC [facility]; Protocol Stop: 02/07/23 07:29 Last Admin: 01/11/23 13:05 Dose: 2 units Insulin Glargine (Lantus Per Unit Charge) 10 units SC DAILY [facility] Stop: 02/11/23 08:59 Magnesium Hydroxide (Magnesium Hydroxide Susp 30 Ml Udc) 30 ml PO Q24H PRN PRN Reason: Constipation Stop: 02/03/23 11:35 Last Admin: 01/09/23 10:19 Dose: 30 ml Metoclopramide HCl (Metoclopramide Hcl Inj 5 Mg/Ml 2 Ml Vial) 10 mg IV Q6H PRN PRN Reason: Nausea &/or Vomiting Stop: 02/03/23 11:35 Last Admin: 01/09/23 07:50 Dose: 10 mg Metoprolol Tartrate (Metoprolol Tartrate 25 Mg Tab) 12.5 mg PO BID [facility] Stop: 02/08/23 20:59 Last Admin: 01/11/23 09:50 Dose: 12.5 mg Mirtazapine (Mirtazapine Tab 15 Mg Tab) 15 mg PO HS [facility] Stop: 02/03/23 20:59 Last Admin: 01/10/23 20:05 Dose: Not Given Miscellaneous (Remove Nicoderm Patch) 1 each N/A DAILY@0859 [facility] Stop: 02/04/23 08:58 Last Admin: 01/11/23 09:54 Dose: Not Given Miscellaneous (Carbohydrates For Hypoglycemia ) 15 - 30 gm PO UD PRN PRN Reason: Hypoglycemia Treatment Stop: 02/03/23 12:14 Miscellaneous Information (Pharmacy Glycemic Mgmt Consult) 1 each N/A UD PRN PRN Reason: Consult Stop: 02/03/23 11:35 Naloxone HCl (Naloxone Hcl 0.4 Mg/1 Ml Vial/Carp) 0.1 mg IV Q5M PRN PRN Reason: Oversedation/Resp depression Stop: 02/03/23 11:35 Nicotine (Nicotine 14 Mg/24 Hr Patch) 14 mg TD QAM [facility] Stop: 02/03/23 09:59 Last Admin: 01/11/23 09:50 Dose: Not Given Ondansetron HCl (Ondansetron Inj 2 Mg/Ml 2 Ml Vial) 4 mg IV Q6H PRN PRN Reason: Nausea &/or Vomiting Stop: 02/03/23 11:35 Last Admin: 01/10/23 18:37 Dose: 4 mg Ondansetron HCl (Ondansetron 4 Mg Od Tab) 4 mg PO Q6H PRN PRN Reason: Nausea Stop: 02/03/23 11:35 Last Admin: 01/11/23 16:01 Dose: 4 mg Oxycodone HCl (Oxycodone Hcl Ir 5 Mg Tab (Immediate Release)) 5 - 10 mg PO Q4H PRN PRN Reason: Pain & Pre PT Stop: 01/18/23 11:35 Last Admin: 01/11/23 15:59 Dose: 5 mg Pantoprazole Sodium (Pantoprazole 40 Mg Tab) 40 mg PO QAM [facility] Stop: 02/04/23 08:59 Last Admin: 01/11/23 09:49 Dose: 40 mg Pneumococcal Polyvalent Vaccine (Do Not Administer Pneumococcal Vaccine) 1 each N/A PRN PRN PRN Reason: Notification Stop: 02/03/23 11:35 Polyethylene Glycol (Polyethylene (Miralax) 17 Gm Pack) 17 gm PO DAILY PRN PRN Reason: Constipation Stop: 02/07/23 08:59 Potassium Chloride (Potassium Chloride Crtab 20 Meq Tabcr) 40 meq PO DAILY [facility] Stop: 01/12/23 08:59 Last Admin: 01/11/23 09:52 Dose: 40 meq Quetiapine Fumarate (Quetiapine Fumarate 200 Mg Tab) 200 mg PO BID [facility] Stop: 02/07/23 20:59 Last Admin: 01/11/23 12:58 Dose: Not Given Senna/Docusate Sodium (Docusate Sodium/Senna 50/8.6mg Tab) 2 tab PO HS [facility] Stop: 02/03/23 20:59 Last Admin: 01/10/23 20:09 Dose: 2 tab Sodium Biphosphate/Sodium Phosphate (Sod Phosphate/Sod Biphosphate Enema 132 Ml Btl) 132 ml OH ONE PRN PRN Reason: Constipation Stop: 02/03/23 11:35 Umeclidinium Ariel (Umeclidinium Ariel 62.5mcg/Blister 7 Puffs/Inhaler) 1 puffs INH DAILY [facility] Stop: 02/08/23 12:14 Last Admin: 01/11/23 09:42 Dose: 1 puffs
[2023-01-11] MEDS: MIRTAZAPINE TAB 15 MG TAB PO SCH (20:35)
[2023-01-11] MEDS: FAMOTIDINE 40 MG TABLET PO SCH (20:36)
[2023-01-11] MEDS: DOCUSATE SODIUM/SENNA 50/8.6MG TAB PO SCH (20:42)
[2023-01-12] MEDS: MEROPENEM 500 MG in SYRINGE 0 ML IV SCH ×4 (00:13→19:22)
[2023-01-12] MEDS: DOXYCYCLINE HYCLATE 100 MG in DEXTROSE 5% 100 ML IV SCH ×2 (04:44→17:39)
[2023-01-12] MEDS: ONDANSETRON 4 MG OD TAB PO PRN (04:49)
[2023-01-12] MEDS: oxyCODONE HCL IR 5 MG TAB (IMMEDIATE RELEASE) PO PRN ×5 (04:50→21:38)
--- NOTE | 2023-01-12 07:59 | Pulmonology Progress Note ---
Date of Service January 12, 2023 Assessment & Plan (1) Acute respiratory failure with hypoxia: (2) Tobacco abuse: (3) COPD with emphysema: (4) Pleural effusion: (5) Abnormal chest CT: Plan CT chest 01/08/2023 personally reviewed: Diffuse patchy groundglass opacities appreciated bilaterally upper and lower lobes Minimal emphysema Small bilateral pleural effusion Minimal mediastinal lymphadenopathy 2D echo 01/09/2023: EF 65-70%, RV normal in size and function -- Acute hypoxic respiratory failure Likely secondary to multilobar pneumonia BNP 268, procalcitonin 0.29 Nasal MRSA negative SARS NAAT negative Respiratory bio fire 01/09/2023 negative The findings could be secondary to infection or acute pulmonary edema especially given bilateral pleural effusion Noninfectious etiologies like autoimmune processes like NSIP ABBIE negative S/p bronch 01/11/2023, negative for DAH Patient's hemoglobin baseline is around 13. She has been hovering around 10 as of 01/05/2023 No personal or family history of autoimmune disease like lupus, sarcoid, Sjo gren's, rheumatoid --COPD On Breo at home c/w Incruse Plan: In/out: Positive 472, urine output 728 mL, -3.8 L since coming to the hospital Continue with Incruse and breo BiPAP nightly and as needed shortness of breath Keep O2 saturation between 88-92%. Do not over oxygenate the patient Case was discussed with RN at bedside Please note the above document was generated using voice recognition software. It may contain grammatical, syntax or spelling errors.Any formal questions or concerns about the content, text or information contained within the body of this dictation should be directly addressed to the provider for clarification. Admission and Anticipated Discharge Date Admission Date: January 04, 2023 Subjective Patient seen and examined at bedside. No acute distress, no adverse events overnight Overall she states that she is feeling better compared to before She was saturating 98-98% on 4 L nasal cannula. I went down to 2 L No nausea vomiting She did use her BiPAP overnight. Afebrile in the last 24 hours Review of Systems Review of Systems: All systems reviewed & are unremarkable except as noted in Subjective Physical Exam Physical Exam: Constitutional: No acute distress HEENT: EOMI, PERRLA Respiratory system: Decreased air entry bilaterally, no rhonchi, no wheeze, positive crackles bilaterally anteriorly and posteriorly CVS: S1-S2 positive, no murmurs or gallops Abdomen: Soft, nontender, nondistended, positive bowel sounds x4, obese Extremities: +2 pulses bilaterally radialis/ dorsalis pedis, no cyanosis, +1 edema bilateral lower extremity Neuro: Awake alert oriented x3 Psych: Normal mood and affect G/U: No Pride Skin: no rashes, warm and dry Lymphatic: no cervical or axillary lymphadenopathy Results & Data Results & Data Vital Signs (Past 12 Hours) Vital Signs Temp Pulse Pulse Pulse Resp BP Pulse Ox 01/12/23 07:00 36.7 C 106 H 20 111/75 93 01/12/23 03:15 36.7 C 64 18 163/80 H 94 01/12/23 02:29 88 01/11/23 23:37 89 17 116/77 98 01/11/23 23:04 96 H 18 91 01/11/23 21:27 O2 Del Method O2 Flow Rate 01/12/23 07:00 Nasal Cannula 4 01/12/23 03:15 BiPAP 01/12/23 02:29 01/11/23 23:37 Nasal Cannula 2 01/11/23 23:04 3 01/11/23 21:27 Nasal Cannula 3 Laboratory Results 01/11/23 06:10 01/11/23 06:10 PG Care Time/CCT Total # of Minutes Spent Total Time Spent with Patient: Total time spent is greater than 50% in coordination of care (as documented) at patient's floor/unit and/or counseling patient: Coding Level of Care Code 33338 SUB INP/OBS CARE 2/35MIN Diagnoses Acute respiratory failure with hypoxia J96.01 Tobacco abuse Z72.0 COPD with emphysema J43.9 Pleural effusion J90 Abnormal chest CT R93.89
[2023-01-12] MEDS: NICOTINE 14 MG/24 HR PATCH TD SCH (08:28)
[2023-01-12] MEDS: QUEtiapine FUMARATE 200 MG TAB PO SCH ×2 (08:28→20:16)
[2023-01-12] MEDS: METOPROLOL TARTRATE 25 MG TAB PO SCH ×2 (08:29→20:15)
[2023-01-12] MEDS: PANTOprazole 40 MG TAB PO SCH (08:29)
[2023-01-12] MEDS: GABAPENTIN 300 MG CAP PO SCH ×3 (08:29→20:15)
[2023-01-12] MEDS: FLUTICASONE/VILANTEROL 200/25MCG 14 PUFFS/INHALER INH SCH (08:30)
[2023-01-12] MEDS: UMECLIDINIUM BROMIDE 62.5MCG/BLISTER 7 PUFFS/INHALER INH SCH (08:30)
[2023-01-12] MEDS: INSULIN ASPART PER UNIT CHARGE SC SCH ×4 (08:32→20:16)
[2023-01-12] MEDS: LANTUS PER UNIT CHARGE SC SCH (08:33)
[2023-01-12] MEDS: METOCLOPRAMIDE HCL INJ 5 MG/ML 2 ML VIAL IV PRN (08:35)
--- NOTE | 2023-01-12 08:40 | Orthopedic Progress Note ---
Date of Service January 12, 2023 Assessment & Plan (1) Neurogenic claudication due to lumbar spinal stenosis: Plan: At this time encourage her to participate with physical therapy today and ambulate as tolerated continue to sit in the chair as tolerated. She is comfort able with the rehab when she is medically stable. I will allow her to increase her oral pain medication. Admission and Anticipated Discharge Date Admission Date: January 04, 2023 Subjective Patient complaining mostly of back pain denies any leg pain. Physical Exam Physical Exam: Patient is sitting up at the side of the bed. Dressings in place. Good strength testing. Results & Data Vital Signs (Past 12 Hours) Vital Signs Temp Pulse Pulse Pulse Resp BP Pulse Ox 01/12/23 07:00 36.7 C 106 H 20 111/75 93 01/12/23 03:15 36.7 C 64 18 163/80 H 94 01/12/23 02:29 88 01/11/23 23:37 89 17 116/77 98 01/11/23 23:04 96 H 18 91 01/11/23 21:27 O2 Del Method O2 Flow Rate 01/12/23 07:00 Nasal Cannula 4 01/12/23 03:15 BiPAP 01/12/23 02:29 01/11/23 23:37 Nasal Cannula 2 01/11/23 23:04 3 01/11/23 21:27 Nasal Cannula 3
[2023-01-12 13:02] LABS: Anti Nuclear Antibody Screen NEGATIVE (NEGATIVE)
[2023-01-12] MEDS ORDERED: oxyCODONE HCL IR 5 MG TAB (IMMEDIATE RELEASE) PO PRN (13:11)
--- NOTE | 2023-01-12 16:59 | Hospitalist Progress Note ---
Date of Service January 12, 2023 Assessment & Plan (1) Neurogenic claudication due to lumbar spinal stenosis: (2) Fever: (3) Hypotension: (4) Acute blood loss anemia: (5) Pre-diabetes: (6) Tobacco abuse: (7) Anxiety: (8) Depression: (9) GERD (gastroesophageal reflux disease): Plan Neurogenic claudication due to lumbar spinal stenosis: - Status post L3-L5 decompression and fusion on 01/04/2023. On POD 1; patient was found to have significant hypotension and had 2 episode of fever. Started on fluid bolus and antibiotics. -Further management including DVT prophylaxis, pain, activities and diet per primary team -Back pain seems to be reasonably controlled still has some radiation of pain -Advised to continue with PT and OT as per primary -Still requiring considerable amount of narcotic pain medications to control pain -Discussed about increasing the dose of gabapentin and decreasing narcotic pain medication but the patient declined Acute hypoxic respite failure-due to pneumonia and pulm edema. Fever/abnormal CT chest- likely pulmonary source. Blood clx negative, Urine clx negative, resp biofire negative, lyme negative. Per ortho, expected post op findings in CT at surgical site. CT C/A/P 1. There is no evidence of pulmonary embolus in the main, lobar, or segmental pulmonary arteries. 2. Interlobular septal thickening suggests fluid overload/congestive failure. Correlate clinically. 3. Small pleural effusions. 4. Emphysema. 5. Multifocal groundglass consolidation is seen throughout both lungs. This could represent pulmonary edema, multifocal pneumonia, pulmonary hemorrhage, and/or ARDS. Clinical correlation will be essential. 6. There is heterogeneous enhancement of the right kidney. This is nonspecific and could be seen in the setting of pyelonephritis. There are also tiny foci of gas within the bladder lumen. Correlate with clinical findings and urinalysis. 7. There is postsurgical change from laminectomy and posterior fusion seen at L3-L5. The orthopedic hardware appears intact. 8. There is a large postoperative fluid collection seen posteriorly at the operative level which contains foci of as detailed above. This likely represents a postoperative seroma. The sterility of this fluid cannot be assessed by imaging and clinical correlation will be required. 9. A portion of this fluid collection extends into the central canal and effaces the right posterior aspect of the thecal sac at L3-L4. Correlate for evidence of clinically significant central canal compromise. 10. Left transverse process fracture of L3. 11. Hepatomegaly. 12. There is a small volume of nonspecific free fluid in the pelvis. 13. Mildly enlarged mediastinal and hilar lymph nodes are nonspecific and may be reactive. Received IV Lasix Noted to be hypotensive which resolved subsequently Was on empiric vanc/zosyn but was still spiking fever. Changed to meropenem/doxy but still with fever Appreciate pulmonary input and recommendation- recommendations noted. Plan for bronchoscopy tomorrow-n.p.o. after midnight. Autoimmune work-up in process given her CT chest findings Status post bronchoscopy on 01/11/2023-pending results Pathology came back negative for any malignancy or atypical cells but showed acute/chronic inflammation. ABBIE has been negative We will continue current management Diarrhea Has history of chronic diarrhea since cholecystectomy Reasonably controlled with oral cholestyramine Will restart cholestyramine from today Hypokalemia-repleted, recheck in Potassium has been normalized Acute blood loss anemia: postsurgery Hb 13->10. H&H has been stable since then. Hemoglobin remains stable at 9.5 as of 01/11/2023 Will monitor Pre-diabetes: HA1c 6.1 12/2022. Metformin on hold. Being managed by glycemic pharmacist Tobacco abuse: Patient declined nicotine patch Anxiety/Depression: On Mirtazapine; continue GERD (gastroesophageal reflux disease): Continue PPI and H2 jeannette DVT prophylaxis: DEENA/SCD per primary team. Chemoprophylaxis deferred to primary Disposition: Per primary team. Admission and Anticipated Discharge Date Admission Date: January 04, 2023 Subjective 01/11/2023 The patient was seen and examined in telemetry unit She has been feeling much better today very still requiring 4 L to maintain saturation Minimal cough, no chest pain and/or palpitation and no shortness of breath at rest 01/12/2023 The patient was seen and examined in telemetry unit She has been feeling much better and requiring 2 L of oxygen to maintain saturation Has been having diarrhea and is asking for her cholestyramine Denies any other significant symptom Review of Systems Review of Systems: All systems reviewed and are unremarkable except as noted below Physical Exam Physical Exam: Lying in bed comfortably Constitutional: well developed, well nourished, + ill appearing and + obese Eyes: PERRL, conjunctivae normal, anicteric sclerae ENMT: external ear and nose normal, oropharynx normal Neck: trachea midline, no thyromegaly Respiratory: no respiratory distress Auscultation: + diminished lung sounds and + crackles (Bibasilar crackles) Cardiovascular: Rate/Rhythm: regular rate and regular rhythm; not tachycardic Heart Sounds: normal S1 and normal S2; no murmur Extremities: no edema Gastrointestinal (Abdomen): Inspection/Auscultation: normal bowel sounds; abdomen not distended Percussion/Palpation: abdomen soft; abdomen nontender Musculoskeletal: No acute arthritis involving any of the joint Neurologic: normal touch/pain/proprioception and moves all extremities; no focal motor deficits Lymphatic: no cervical or axillary lymphadenopathy Results & Data Results & Data Vital Signs (Past 12 Hours) Vital Signs Temp Pulse Pulse Pulse Resp BP BP 01/12/23 15:48 36.9 C 102 H 19 131/82 01/12/23 12:19 36.6 C 95 H 19 126/83 01/12/23 11:09 94 H 01/12/23 11:09 01/12/23 07:00 36.7 C 106 H 20 111/75 Pulse Ox O2 Del Method O2 Flow Rate 01/12/23 15:48 96 Nasal Cannula 2 01/12/23 12:19 98 Nasal Cannula 3 01/12/23 11:09 01/12/23 11:09 Nasal Cannula 4 01/12/23 07:00 93 Nasal Cannula 4 Medications Administered Current Inpatient Medications Acetaminophen (Acetaminophen 500 Mg Tab) 1,000 mg PO Q8H PRN PRN Reason: MILD Pain Scale 1,2,3 & Pre PT Stop: 02/03/23 11:35 Last Admin: 01/11/23 03:16 Dose: 1,000 mg Al Hydrox/Mg Hydrox/Simethicone (Aluminum/Magnesium Susp 30 Ml Udc) 30 ml PO Q6H PRN PRN Reason: Dyspepsia Stop: 02/03/23 11:35 Albuterol (Albuterol Hfa Inhaler 8.5 Gm) 1 puffs INH QID PRN PRN Reason: Wheezing Bisacodyl (Bisacodyl 10 Mg Supp) 10 mg AR DAILY PRN PRN Reason: Constipation Stop: 02/03/23 11:35 Cholestyramine Resin (Cholestyramine Light 4 Gm Pkt) 4 gm PO QID MARGO Stop: 02/11/23 16:59 Cyclobenzaprine HCl (Cyclobenzaprine Hcl 10 Mg Tab) 10 mg PO Q8H PRN PRN Reason: Muscle Spasm Stop: 02/04/23 12:52 Last Admin: 01/09/23 19:17 Dose: 10 mg Dextrose (Dextrose 50% 50 Ml Syringe) 25 - 50 ml IV UD PRN; Protocol PRN Reason: Hypoglycemia Protocol Stop: 02/03/23 12:14 Diphenhydramine HCl (Diphenhydramine Capsule 25 Mg Cap) 25 mg PO Q6H PRN PRN Reason: Allergic Rhinitis/Insomnia Stop: 02/03/23 11:35 Famotidine (Famotidine 40 Mg Tablet) 40 mg PO HS MARGO Stop: 02/03/23 20:59 Last Admin: 01/11/23 20:36 Dose: 40 mg Famotidine (Famotidine 20 Mg Tab) 20 mg PO Q12H PRN PRN Reason: Dyspepsia Stop: 02/03/23 11:35 Fluticasone/Vilanterol (Fluticasone/Vilanterol 200/25mcg 14 Puffs/Inhaler) 1 puffs INH DAILY MARGO Stop: 02/04/23 08:59 Last Admin: 01/12/23 08:30 Dose: Not Given Gabapentin (Gabapentin 300 Mg Cap) 300 mg PO TID MARGO Stop: 02/07/23 20:59 Last Admin: 01/12/23 13:40 Dose: 300 mg Glucagon (Glucagon For Inj 1 Mg Vial) 1 mg IM UD PRN; Protocol PRN Reason: Hypoglycemia Protocol Stop: 02/03/23 12:14 Glucose (Glucose 40% Gel 15 Gm Tube) 15 - 30 gm PO UD PRN; Protocol PRN Reason: Hypoglycemia Protocol Stop: 02/03/23 12:14 Glucose (Glucose 10 Tab/Tube) 4 - 8 tab PO UD PRN; Protocol PRN Reason: Hypoglycemia Protocol Stop: 02/03/23 12:14 Hydroxyzine HCl (Hydroxyzine Hcl 25 Mg Tab) 25 mg PO Q8H PRN PRN Reason: Anxiety Stop: 02/03/23 11:35 Promethazine HCl 12.5 mg/ (Sodium Chloride) 50.5 mls @ 202 mls/hr IV Q6H PRN PRN Reason: Nausea &/or Vomiting Stop: 02/03/23 11:35 Last Infusion: 01/08/23 20:49 Dose: Infused Doxycycline Hyclate 100 mg/ (Dextrose) 110 mls @ 50 mls/hr IV Q12H [facility] Stop: 01/15/23 23:59 Last Infusion: 01/12/23 07:00 Dose: Infused Meropenem 500 mg/ Syringe 10 mls @ 2 mls/min IV Q6H [facility]; Protocol Stop: 01/15/23 23:59 Last Admin: 01/12/23 13:40 Dose: 2 mls/min Influenza Virus Vaccine Quadrival (Do Not Administer Flu Vaccine) 1 each N/A PRN PRN PRN Reason: Notification Stop: 02/03/23 11:35 Insulin Aspart (Insulin Aspart Per Unit Charge) 0 units SC ACHS [facility]; Protocol Stop: 02/07/23 07:29 Last Admin: 01/12/23 12:45 Dose: Not Given Insulin Glargine (Lantus Per Unit Charge) 10 units SC DAILY [facility] Stop: 02/11/23 08:59 Last Admin: 01/12/23 08:33 Dose: 10 units Magnesium Hydroxide (Magnesium Hydroxide Susp 30 Ml Udc) 30 ml PO Q24H PRN PRN Reason: Constipation Stop: 02/03/23 11:35 Last Admin: 01/09/23 10:19 Dose: 30 ml Metoclopramide HCl (Metoclopramide Hcl Inj 5 Mg/Ml 2 Ml Vial) 10 mg IV Q6H PRN PRN Reason: Nausea &/or Vomiting Stop: 02/03/23 11:35 Last Admin: 01/12/23 08:35 Dose: 10 mg Metoprolol Tartrate (Metoprolol Tartrate 25 Mg Tab) 12.5 mg PO BID [facility]GO Stop: 02/08/23 20:59 Last Admin: 01/12/23 08:29 Dose: 12.5 mg Mirtazapine (Mirtazapine Tab 15 Mg Tab) 15 mg PO HS [facility] Stop: 02/03/23 20:59 Last Admin: 01/11/23 20:35 Dose: 15 mg Miscellaneous (Remove Nicoderm Patch) 1 each N/A DAILY@0859 [facility] Stop: 02/04/23 08:58 Last Admin: 01/12/23 08:29 Dose: Not Given Miscellaneous (Carbohydrates For Hypoglycemia ) 15 - 30 gm PO UD PRN PRN Reason: Hypoglycemia Treatment Stop: 02/03/23 12:14 Miscellaneous Information (Pharmacy Glycemic Mgmt Consult) 1 each N/A UD PRN PRN Reason: Consult Stop: 02/03/23 11:35 Naloxone HCl (Naloxone Hcl 0.4 Mg/1 Ml Vial/Carp) 0.1 mg IV Q5M PRN PRN Reason: Oversedation/Resp depression Stop: 02/03/23 11:35 Nicotine (Nicotine 14 Mg/24 Hr Patch) 14 mg TD [facility] Stop: 02/03/23 09:59 Last Admin: 01/12/23 08:28 Dose: Not Given Ondansetron HCl (Ondansetron Inj 2 Mg/Ml 2 Ml Vial) 4 mg IV Q6H PRN PRN Reason: Nausea &/or Vomiting Stop: 02/03/23 11:35 Last Admin: 01/10/23 18:37 Dose: 4 mg Ondansetron HCl (Ondansetron 4 Mg Od Tab) 4 mg PO Q6H PRN PRN Reason: Nausea Stop: 02/03/23 11:35 Last Admin: 01/12/23 04:49 Dose: 4 mg Oxycodone HCl (Oxycodone Hcl Ir 5 Mg Tab (Immediate Release)) 5 - 10 mg PO Q4H PRN PRN Reason: Pain & Pre PT Stop: 01/26/23 13:10 Last Admin: 01/12/23 13:47 Dose: 10 mg Pantoprazole Sodium (Pantoprazole 40 Mg Tab) 40 mg PO [facility] Stop: 02/04/23 08:59 Last Admin: 01/12/23 08:29 Dose: 40 mg Pneumococcal Polyvalent Vaccine (Do Not Administer Pneumococcal Vaccine) 1 each N/A PRN PRN PRN Reason: Notification Stop: 02/03/23 11:35 Polyethylene Glycol (Polyethylene (Miralax) 17 Gm Pack) 17 gm PO DAILY PRN PRN Reason: Constipation Stop: 02/07/23 08:59 Quetiapine Fumarate (Quetiapine Fumarate 200 Mg Tab) 200 mg PO BID [facility] Stop: 02/07/23 20:59 Last Admin: 01/12/23 08:28 Dose: 200 mg Senna/Docusate Sodium (Docusate Sodium/Senna 50/8.6mg Tab) 2 tab PO HS [facility] Stop: 02/03/23 20:59 Last Admin: 01/11/23 20:42 Dose: 2 tab Sodium Biphosphate/Sodium Phosphate (Sod Phosphate/Sod Biphosphate Enema 132 Ml Btl) 132 ml AR ONE PRN PRN Reason: Constipation Stop: 02/03/23 11:35 Umeclidinium [place] (Umeclidinium [place] 62.5mcg/Blister 7 Puffs/Inhaler) 1 puffs INH DAILY [facility] Stop: 02/08/23 12:14 Last Admin: 01/12/23 08:30 Dose: Not Given
[2023-01-12] MEDS: CHOLESTYRAMINE LIGHT 4 GM PKT PO SCH ×2 (17:35→21:01)
[2023-01-12] MEDS: FAMOTIDINE 40 MG TABLET PO SCH (20:15)
[2023-01-12] MEDS: MIRTAZAPINE TAB 15 MG TAB PO SCH (20:15)
[2023-01-12] MEDS: DOCUSATE SODIUM/SENNA 50/8.6MG TAB PO SCH (20:17)
[2023-01-13] MEDS: MEROPENEM 500 MG in SYRINGE 0 ML IV SCH ×4 (01:40→19:23)
[2023-01-13] MEDS: oxyCODONE HCL IR 5 MG TAB (IMMEDIATE RELEASE) PO PRN ×6 (01:45→23:20)
[2023-01-13] MEDS: DOXYCYCLINE HYCLATE 100 MG in DEXTROSE 5% 100 ML IV SCH ×2 (05:25→17:28)
[2023-01-13 06:22] LABS: Hematocrit (blood only) 28.4 % (37.0-47.0); Hemoglobin 9.6 g/dl (12.0-16.0); Mean Corpuscular Hemoglobin 31.4 pg (25.0-34.0); Mean Corpuscular Hgb Conc 33.8 g/dL (32.0-36.0); Mean Corpuscular Volume 92.8 fL (80.0-100.0); Mean Platelet Volume 9.1 fL (9.4-12.4); Nucleated RBC # (auto) 0.02 K/uL (0-0.12); Nucleated RBC % (auto) 0.2 %; Platelet Count 600 K/uL (130-400); RDW Standard Deviation 47.6 fL (36.4-46.3); Red Blood Count 3.06 M/uL (4.20-5.40); White Blood Count 8.35 K/ul (4.8-10.8)
[2023-01-13 06:36] LABS: BUN Creatinine Ratio 10.6 (10-20); Calcium 8.2 mg/dl (8.6-10.3); Creatinine Clr Calc Pharmacy 152.6 ml/min; Est GFR (Non-African American) 110.4 ml/min; Magnesium 1.7 mg/dl (1.7-2.4); Potassium 3.6 mmol/L (3.5-5.1)
[2023-01-13 06:49] LABS: Basophils # (auto) 0.06 K/uL (0-0.2); Basophils % (auto) 0.7 %; Eosinophils # (auto) 0.39 K/uL (0-0.50); Eosinophils % (auto) 4.7 %; Immature Granulocytes % (auto) 3.6 %; Lymphocytes # (auto) 2.56 K/uL (1.2-3.4); Lymphocytes % (auto) 30.7 %; Monocytes # (auto) 0.78 K/uL (0.11-0.59); Monocytes % (auto) 9.3 %; Neutrophils # (auto) 4.26 K/uL (1.40-6.50); Polychromasia 1+
[2023-01-13] MEDS: PANTOprazole 40 MG TAB PO SCH (08:10)
[2023-01-13] MEDS: METOPROLOL TARTRATE 25 MG TAB PO SCH ×2 (08:10→20:24)
[2023-01-13] MEDS: GABAPENTIN 300 MG CAP PO SCH ×3 (08:11→20:24)
[2023-01-13] MEDS: NICOTINE 14 MG/24 HR PATCH TD SCH (08:11)
[2023-01-13] MEDS: UMECLIDINIUM BROMIDE 62.5MCG/BLISTER 7 PUFFS/INHALER INH SCH (08:11)
[2023-01-13] MEDS: FLUTICASONE/VILANTEROL 200/25MCG 14 PUFFS/INHALER INH SCH (08:12)
[2023-01-13] MEDS: QUEtiapine FUMARATE 200 MG TAB PO SCH ×2 (08:12→20:23)
--- NOTE | 2023-01-13 08:59 | Orthopedic Progress Note ---
Date of Service January 13, 2023 Assessment & Plan (1) Neurogenic claudication due to lumbar spinal stenosis: Plan: We will continue with physical therapy today. Currently awaiting for authorization and bed availability at [facility] in [place]. Also awaiting for approval from medicine and pulmonology team for discharge once stable. Admission and Anticipated Discharge Date Admission Date: January 04, 2023 Curt Patel is postoperative day 9 status post L3-5 decompression and instrumented fusion. She had a bronchoscopy 2 days ago. Final results are still pending. She denies any shortness of breath, chest pain, dizziness, lightheadedness. Last fever was reported on January 11. She is currently on meropenem and doxycycline. Yesterday in physical therapy she was able to ambulate roughly 250 feet. She currently is agreeable to be discharged to [facility] in [place] once medically stable Review of Systems Review of Systems: All systems reviewed & are unremarkable except as noted in HPI & below Physical Exam Physical Exam: Alert and oriented x3 Currently on 2 L nasal cannula No acute distress Strength is intact bilateral lower extremities Calf soft and nontender bilaterally Results & Data Vital Signs (Past 12 Hours) Vital Signs Temp Pulse Pulse Pulse Resp BP BP 01/13/23 08:00 36.9 C 78 61 20 135/87 135/70 01/12/23 21:00 01/13/23 03:36 36.7 C 105 H 17 123/74 01/13/23 00:00 88 01/12/23 22:40 91 H 16 01/12/23 23:10 89 18 121/81 Pulse Ox O2 Del Method O2 Flow Rate 01/13/23 08:00 97 Room Air 01/12/23 21:00 Nasal Cannula 2 01/13/23 03:36 95 Nasal Cannula 3 01/13/23 00:00 01/12/23 22:40 99 3 01/12/23 23:10 97 BiPAP
--- NOTE | 2023-01-13 09:11 | Pharmacy Report ---
Pharmacy Glycemic Short Note 2 - Date of Service January 13, 2023 - Glycemic Short BSG Results (Last 24 hours): 01/12/23 01/12/23 01/12/23 12:00 16:57 20:10 Glucose POC Glucose 138 H 104 H 133 H 01/13/23 01/13/23 05:54 07:41 Glucose 118 H POC Glucose 144 H OUTPATIENT ANTIDIABETIC REGIMEN: * Metformin 500 mg PO BIDM HbA1c: 6.1% (12/28/22) ASSESSMENT: 01/13/23: * BSGs remain well-controlled, ranging 104-138 mg/dL yesterday * Received 10 units of insulin (basal only) * Continues on meropenem and doxycycline * lunch BSG of 89 mg/dL - will loosen Novolog parameters and adjust goal range 01/11/23 * Patient's BSGs yesterday were [phone] mg/dL and patient received 20 units of insulin (10 units of basal and 10 units of bolus). * Fasting today is 154 mg/dL. Patient is NPO for bronch today. * Hold Lantus today due to NPO status. * Continue insulin otherwise. 01/10/23 * Patient's BSGs yesterday were [phone] mg/dL. Patient received 7 units of Novolog yesterday. * Fasting today is 168 mg/dL. * Start Lantus 10 units daily for BSG > 180 mg/dL. * Continue Novolog. * Continue to hold metformin as patient received contrast 01/08/23. 01/04: * 57 yo F admitted postoperatively on 01/04/23 following a L3-L5 decompression and fusion. Pharmacy has been consulted to assist with inpatient glycemic management. Patient is a well controlled Type 2 diabetic as an outpatient. Please refer to outpatient regimen and most recent HbA1c above. * Preop BSG was 140 mg/dL while postop BSGs were 137-158 mg/dL. Received 12 mg of IV dexamethasone intraoperatively. Will continue on 6 mg of IV dexamethasone daily for the next 3 days. Ordered a T2DM diet. Will monitor how patient tolerates diet postop. * Giving a full weight/stress of 2 basal dose now to cover steroids. Reassess basal dose in the AM. Starting bolus based on weight/stress of 3. Added an overnight check for tonight. PLAN FOR INPATIENT GLYCEMIC CONTROL: * Hold outpatient oral diabetes medications * Basal insulin * Lantus 10 units daily * Bolus insulin * NovoLog per scale ACHS or Q6hrs while NPO * Goal Range: Low 120 mg/dL - High 150 mg/dL * Correction Factor: 30 mg/dL/unit * Nutritional / Prandial insulin per carb ratio of 1 unit per 10 grams CHO consumed
[2023-01-13] MEDS: CHOLESTYRAMINE LIGHT 4 GM PKT PO SCH ×4 (09:13→21:05)
[2023-01-13] MEDS: INSULIN ASPART PER UNIT CHARGE SC SCH ×4 (09:16→20:39)
[2023-01-13] MEDS: LANTUS PER UNIT CHARGE SC SCH (09:17)
--- NOTE | 2023-01-13 12:21 | Pulmonology Progress Note ---
Date of Service January 13, 2023 Assessment & Plan (1) Acute respiratory failure with hypoxia: (2) Tobacco abuse: (3) COPD with emphysema: (4) Pleural effusion: (5) Abnormal chest CT: Plan CT chest 01/08/2023 personally reviewed: Diffuse patchy groundglass opacities appreciated bilaterally upper and lower lobes Minimal emphysema Small bilateral pleural effusion Minimal mediastinal lymphadenopathy 2D echo 01/09/2023: EF 65-70%, RV normal in size and function -- Acute hypoxic respiratory failure Likely secondary to multilobar pneumonia BNP 268, procalcitonin 0.29 Nasal MRSA negative SARS NAAT negative Respiratory bio fire 01/09/2023 negative The findings could be secondary to infection or acute pulmonary edema especially given bilateral pleural effusion Noninfectious etiologies like autoimmune processes like NSIP ABBIE negative Pathology from transbronchial biopsy shows nonspecific chronic inflammation, negative for mycobacterial or fungal organisms S/p bronch 01/11/2023, negative for DAH Patient's hemoglobin baseline is around 13. She has been hovering around 10 as of 01/05/2023 No personal or family history of autoimmune disease like lupus, sarcoid, Sjogren's, rheumatoid --COPD On Breo at home c/w Incruse Plan: Patient will need oxygen on discharge Recommend outpatient polysomnography when she goes to rehab Can de-escalate antibiotics and continued for total of 10 days Cytology is negative for malignancy or infection Micro from the BAL is negative to date Continue with Incruse and breo BiPAP nightly and as needed shortness of breath Keep O2 saturation between 88-92%. Patient will need repeat CT chest, preferably HRCT to be done in 6-8 weeks. Case was discussed with RN at bedside and Dr Arvizu No further recommendation from pulmonary perspective, will sign off Please call directly with any questions Please note the above document was generated using voice recognition software. It may contain grammatical, syntax or spelling errors.Any formal questions or concerns about the content, text or information contained within the body of this dictation should be directly addressed to the provider for clarification. Admission and Anticipated Discharge Date Admission Date: January 04, 2023 Subjective Patient seen and examined at bedside. No acute distress, no adverse events overnight. Patient was saturating 96% on 3 L nasal cannula. I went down to 2 L. Overall she says she is feeling better compared to 3 days ago. Is not bringing up any phlegm No hemoptysis Shortness of breath has improved Fair appetite Review of Systems Review of Systems: All systems reviewed & are unremarkable except as noted in Subjective Physical Exam Physical Exam: Constitutional: No acute distress HEENT: EOMI, PERRLA Respiratory system: Decreased air entry bilaterally, no rhonchi, no wheeze, positive crackles bilaterally anteriorly and posteriorly CVS: S1-S2 positive, no murmurs or gallops Abdomen: Soft, nontender, nondistended, positive bowel sounds x4, obese Extremities: +2 pulses bilaterally radialis/ dorsalis pedis, no cyanosis, no edema Neuro: Awake alert oriented x3 Psych: Normal mood and affect G/U: No Pride Skin: no rashes, warm and dry Lymphatic: no cervical or axillary lymphadenopathy Results & Data Results & Data Vital Signs (Past 12 Hours) Vital Signs Temp Pulse Pulse Resp BP BP Pulse Ox 01/13/23 11:26 01/13/23 08:00 36.9 C 78 61 20 135/87 135/70 97 01/13/23 03:36 36.7 C 105 H 17 123/74 95 O2 Del Method O2 Flow Rate 01/13/23 11:26 Nasal Cannula 2 01/13/23 08:00 Room Air 01/13/23 03:36 Nasal Cannula 3 Laboratory Results 01/13/23 05:55 01/13/23 05:54 PG Care Time/CCT Total # of Minutes Spent Total Time Spent with Patient: Total time spent is greater than 50% in coordination of care (as documented) at patient's floor/unit and/or counseling patient: Coding Level of Care Code 18358 SUB INP/OBS CARE 2/35MIN Diagnoses Acute respiratory failure with hypoxia J96.01 Tobacco abuse Z72.0 COPD with emphysema J43.9 Pleural effusion J90 Abnormal chest CT R93.89
--- NOTE | 2023-01-13 12:44 | Hospitalist Progress Note ---
Date of Service January 13, 2023 Assessment & Plan (1) Neurogenic claudication due to lumbar spinal stenosis: (2) Fever: (3) Hypotension: (4) Acute blood loss anemia: (5) Pre-diabetes: (6) Tobacco abuse: (7) Anxiety: (8) Depression: (9) GERD (gastroesophageal reflux disease): Plan Neurogenic claudication due to lumbar spinal stenosis: - Status post L3-L5 decompression and fusion on 01/04/2023. On POD 1; patient was found to have significant hypotension and had 2 episode of fever. Started on fluid bolus and antibiotics. -Further management including DVT prophylaxis, pain, activities and diet per primary team -Back pain seems to be reasonably controlled still has some radiation of pain -Advised to continue with PT and OT as per primary -Still requiring considerable amount of narcotic pain medications to control pain -Discussed about increasing the dose of gabapentin and decreasing narcotic pain medication but the patient declined -Has been accepted to [facility] in [place] Acute hypoxic respite failure-due to pneumonia and pulm edema. Fever/abnormal CT chest- likely pulmonary source. Blood clx negative, Urine clx negative, resp biofire negative, lyme negative. Per ortho, expected post op findings in CT at surgical site. CT C/A/P 1. There is no evidence of pulmonary embolus in the main, lobar, or segmental pulmonary arteries. 2. Interlobular septal thickening suggests fluid overload/congestive failure. Correlate clinically. 3. Small pleural effusions. 4. Emphysema. 5. Multifocal groundglass consolidation is seen throughout both lungs. This could represent pulmonary edema, multifocal pneumonia, pulmonary hemorrhage, and/or ARDS. Clinical correlation will be essential. 6. There is heterogeneous enhancement of the right kidney. This is nonspecific and could be seen in the setting of pyelonephritis. There are also tiny foci of gas within the bladder lumen. Correlate with clinical findings and urinalysis. 7. There is postsurgical change from laminectomy and posterior fusion seen at L3-L5. The orthopedic hardware appears intact. 8. There is a large postoperative fluid collection seen posteriorly at the operative level which contains foci of as detailed above. This likely represents a postoperative seroma. The sterility of this fluid cannot be assessed by imaging and clinical correlation will be required. 9. A portion of this fluid collection extends into the central canal and effaces the right posterior aspect of the thecal sac at L3-L4. Correlate for evidence of clinically significant central canal compromise. 10. Left transverse process fracture of L3. 11. Hepatomegaly. 12. There is a small volume of nonspecific free fluid in the pelvis. 13. Mildly enlarged mediastinal and hilar lymph nodes are nonspecific and may be reactive. Received IV Lasix Noted to be hypotensive which resolved subsequently Was on empiric vanc/zosyn but was still spiking fever. Changed to meropenem/doxy but still with fever Appreciate pulmonary input and recommendation- recommendations noted. Plan for bronchoscopy tomorrow-n.p.o. after midnight. Autoimmune work-up in process given her CT chest findings Status post bronchoscopy on 01/11/2023-pending results Pathology came back negative for any malignancy or atypical cells but showed acute/chronic inflammation. ABBIE has been negative We will continue current management-clinically much improved and likely be discharged in a day or 2 Was not on any oxygen before and now she has been requiring up to 2 L to maintain saturation-likely to need 8 to a stable O2 saturation test prior to discharge home from the facility Diarrhea Has history of chronic diarrhea since cholecystectomy Reasonably controlled with oral cholestyramine Will restart cholestyramine from today Denies any diarrhea Hypokalemia-repleted, recheck in Potassium has been normalized Acute blood loss anemia: postsurgery Hb 13->10. H&H has been stable since then. Hemoglobin remains stable at 9.5 as of 01/11/2023 Will monitor Pre-diabetes: HA1c 6.1 12/2022. Metformin on hold. Being managed by glycemic pharmacist Tobacco abuse: Patient declined nicotine patch Anxiety/Depression: On Mirtazapine; continue GERD (gastroesophageal reflux disease): Continue PPI and H2 jeannette DVT prophylaxis: DEENA/SCD per primary team. Chemoprophylaxis deferred to primary Disposition: Per primary team. Admission and Anticipated Discharge Date Admission Date: January 04, 2023 Subjective 01/11/2023 The patient was seen and examined in telemetry unit She has been feeling much better today very still requiring 4 L to maintain saturation Minimal cough, no chest pain and/or palpitation and no shortness of breath at rest 01/12/2023 The patient was seen and examined in telemetry unit She has been feeling much better and requiring 2 L of oxygen to maintain saturation Has been having diarrhea and is asking for her cholestyramine Denies any other significant symptom 01/13/2023 The patient was seen and examined in telemetry unit She has been feeling much better and saturating on 2 L at best Has had physical therapy and recommended rehab She has been accepted to [facility] in [place] To be discharged in a day or 2 Review of Systems Review of Systems: All systems reviewed and are unremarkable except as noted below Physical Exam Physical Exam: Lying in bed comfortably Constitutional: well developed, well nourished, + ill appearing and + obese Eyes: PERRL, conjunctivae normal, anicteric sclerae ENMT: external ear and nose normal, oropharynx normal Neck: trachea midline, no thyromegaly Respiratory: no respiratory distress Auscultation: + diminished lung sounds and + crackles (Bibasilar crackles) Cardiovascular: Rate/Rhythm: regular rate and regular rhythm; not tachycardic Heart Sounds: normal S1 and normal S2; no murmur Extremities: no edema Gastrointestinal (Abdomen): Inspection/Auscultation: normal bowel sounds; abdomen not distended Percussion/Palpation: abdomen soft; abdomen nontender Musculoskeletal: Has back pain status post lumbar surgery without any acute arthritis in any other joint Neurologic: normal touch/pain/proprioception and moves all extremities; no focal motor deficits Lymphatic: no cervical or axillary lymphadenopathy Results & Data Results & Data Vital Signs (Past 12 Hours) Vital Signs Temp Pulse Pulse Resp BP BP Pulse Ox 01/13/23 12:00 36.8 C 67 18 125/64 97 01/13/23 11:26 01/13/23 08:00 36.9 C 78 61 20 135/87 135/70 97 01/13/23 03:36 36.7 C 105 H 17 123/74 95 O2 Del Method O2 Flow Rate 01/13/23 12:00 Room Air 01/13/23 11:26 Nasal Cannula 2 01/13/23 08:00 Room Air 01/13/23 03:36 Nasal Cannula 3 Laboratory Results Short CBC 01/13/23 Range/Units 05:55 WBC 8.35 (4.8-10.8) K/ul Hgb 9.6 L (12.0-16.0) g/dl Hct 28.4 L (37.0-47.0) % Plt Count 600 H (130-400) K/uL BMP 01/13/23 05:54 Sodium 135 L Potassium 3.6 Chloride 98 Carbon Dioxide 28 BUN 5 L Creatinine 0.47 L Glucose 118 H Calcium 8.2 L Medications Administered Current Inpatient Medications Acetaminophen (Acetaminophen 500 Mg Tab) 1,000 mg PO Q8H PRN PRN Reason: MILD Pain Scale 1,2,3 & Pre PT Stop: 02/03/23 11:35 Last Admin: 01/11/23 03:16 Dose: 1,000 mg Al Hydrox/Mg Hydrox/Simethicone (Aluminum/Magnesium Susp 30 Ml Udc) 30 ml PO Q6H PRN PRN Reason: Dyspepsia Stop: 02/03/23 11:35 Albuterol (Albuterol Hfa Inhaler 8.5 Gm) 1 puffs INH QID PRN PRN Reason: Wheezing Bisacodyl (Bisacodyl 10 Mg Supp) 10 mg OR DAILY PRN PRN Reason: Constipation Stop: 02/03/23 11:35 Cholestyramine Resin (Cholestyramine Light 4 Gm Pkt) 4 gm PO QID MARGO Stop: 02/11/23 16:59 Last Admin: 01/13/23 09:13 Dose: 4 gm Cyclobenzaprine HCl (Cyclobenzaprine Hcl 10 Mg Tab) 10 mg PO Q8H PRN PRN Reason: Muscle Spasm Stop: 02/04/23 12:52 Last Admin: 01/09/23 19:17 Dose: 10 mg Dextrose (Dextrose 50% 50 Ml Syringe) 25 - 50 ml IV UD PRN; Protocol PRN Reason: Hypoglycemia Protocol Stop: 02/03/23 12:14 Diphenhydramine HCl (Diphenhydramine Capsule 25 Mg Cap) 25 mg PO Q6H PRN PRN Reason: Allergic Rhinitis/Insomnia Stop: 02/03/23 11:35 Famotidine (Famotidine 40 Mg Tablet) 40 mg PO HS MARGO Stop: 02/03/23 20:59 Last Admin: 01/12/23 20:15 Dose: 40 mg Famotidine (Famotidine 20 Mg Tab) 20 mg PO Q12H PRN PRN Reason: Dyspepsia Stop: 02/03/23 11:35 Fluticasone/Vilanterol (Fluticasone/Vilanterol 200/25mcg 14 Puffs/Inhaler) 1 puffs INH DAILY MARGO Stop: 02/04/23 08:59 Last Admin: 01/13/23 08:12 Dose: 1 puffs Gabapentin (Gabapentin 300 Mg Cap) 300 mg PO TID MARGO Stop: 02/07/23 20:59 Last Admin: 01/13/23 08:11 Dose: 300 mg Glucagon (Glucagon For Inj 1 Mg Vial) 1 mg IM UD PRN; Protocol PRN Reason: Hypoglycemia Protocol Stop: 02/03/23 12:14 Glucose (Glucose 40% Gel 15 Gm Tube) 15 - 30 gm PO UD PRN; Protocol PRN Reason: Hypoglycemia Protocol Stop: 02/03/23 12:14 Glucose (Glucose 10 Tab/Tube) 4 - 8 tab PO UD PRN; Protocol PRN Reason: Hypoglycemia Protocol Stop: 02/03/23 12:14 Hydroxyzine HCl (Hydroxyzine Hcl 25 Mg Tab) 25 mg PO Q8H PRN PRN Reason: Anxiety Stop: 02/03/23 11:35 Promethazine HCl 12.5 mg/ (Sodium Chloride) 50.5 mls @ 202 mls/hr IV Q6H PRN PRN Reason: Nausea &/or Vomiting Stop: 02/03/23 11:35 Last Infusion: 01/08/23 20:49 Dose: Infused Doxycycline Hyclate 100 mg/ (Dextrose) 110 mls @ 50 mls/hr IV Q12H MARGO Stop: 01/15/23 23:59 Last Infusion: 01/13/23 07:38 Dose: Infused Meropenem 500 mg/ Syringe 10 mls @ 2 mls/min IV Q6H [facility]; Protocol Stop: 01/15/23 23:59 Last Admin: 01/13/23 06:07 Dose: 2 mls/min Influenza Virus Vaccine Quadrival (Do Not Administer Flu Vaccine) 1 each N/A PRN PRN PRN Reason: Notification Stop: 02/03/23 11:35 Insulin Aspart (Insulin Aspart Per Unit Charge) 0 units SC ACHS [facility]; Protocol Stop: 02/07/23 07:29 Last Admin: 01/13/23 09:16 Dose: 1 units Insulin Glargine (Lantus Per Unit Charge) 10 units SC DAILY [facility] Stop: 02/11/23 08:59 Last Admin: 01/13/23 09:17 Dose: 10 units Magnesium Hydroxide (Magnesium Hydroxide Susp 30 Ml Udc) 30 ml PO Q24H PRN PRN Reason: Constipation Stop: 02/03/23 11:35 Last Admin: 01/09/23 10:19 Dose: 30 ml Metoclopramide HCl (Metoclopramide Hcl Inj 5 Mg/Ml 2 Ml Vial) 10 mg IV Q6H PRN PRN Reason: Nausea &/or Vomiting Stop: 02/03/23 11:35 Last Admin: 01/12/23 08:35 Dose: 10 mg Metoprolol Tartrate (Metoprolol Tartrate 25 Mg Tab) 12.5 mg PO BID [facility] Stop: 02/08/23 20:59 Last Admin: 01/13/23 08:10 Dose: 12.5 mg Mirtazapine (Mirtazapine Tab 15 Mg Tab) 15 mg PO HS [facility] Stop: 02/03/23 20:59 Last Admin: 01/12/23 20:15 Dose: 15 mg Miscellaneous (Remove Nicoderm Patch) 1 each N/A DAILY@0859 [facility] Stop: 02/04/23 08:58 Last Admin: 01/13/23 08:12 Dose: Not Given Miscellaneous (Carbohydrates For Hypoglycemia ) 15 - 30 gm PO UD PRN PRN Reason: Hypoglycemia Treatment Stop: 02/03/23 12:14 Miscellaneous Information (Pharmacy Glycemic Mgmt Consult) 1 each N/A UD PRN PRN Reason: Consult Stop: 02/03/23 11:35 Naloxone HCl (Naloxone Hcl 0.4 Mg/1 Ml Vial/Carp) 0.1 mg IV Q5M PRN PRN Reason: Oversedation/Resp depression Stop: 02/03/23 11:35 Nicotine (Nicotine 14 Mg/24 Hr Patch) 14 mg TD QAM [facility] Stop: 02/03/23 09:59 Last Admin: 01/13/23 08:11 Dose: Not Given Ondansetron HCl (Ondansetron Inj 2 Mg/Ml 2 Ml Vial) 4 mg IV Q6H PRN PRN Reason: Nausea &/or Vomiting Stop: 02/03/23 11:35 Last Admin: 01/10/23 18:37 Dose: 4 mg Ondansetron HCl (Ondansetron 4 Mg Od Tab) 4 mg PO Q6H PRN PRN Reason: Nausea Stop: 02/03/23 11:35 Last Admin: 01/12/23 04:49 Dose: 4 mg Oxycodone HCl (Oxycodone Hcl Ir 5 Mg Tab (Immediate Release)) 5 - 10 mg PO Q4H PRN PRN Reason: Pain & Pre PT Stop: 01/26/23 13:10 Last Admin: 01/13/23 10:44 Dose: 10 mg Pantoprazole Sodium (Pantoprazole 40 Mg Tab) 40 mg PO QAM [facility] Stop: 02/04/23 08:59 Last Admin: 01/13/23 08:10 Dose: 40 mg Pneumococcal Polyvalent Vaccine (Do Not Administer Pneumococcal Vaccine) 1 each N/A PRN PRN PRN Reason: Notification Stop: 02/03/23 11:35 Polyethylene Glycol (Polyethylene (Miralax) 17 Gm Pack) 17 gm PO DAILY PRN PRN Reason: Constipation Stop: 02/07/23 08:59 Quetiapine Fumarate (Quetiapine Fumarate 200 Mg Tab) 200 mg PO BID [facility] Stop: 02/07/23 20:59 Last Admin: 01/13/23 08:12 Dose: 200 mg Senna/Docusate Sodium (Docusate Sodium/Senna 50/8.6mg Tab) 2 tab PO HS [facility] Stop: 02/03/23 20:59 Last Admin: 01/12/23 20:17 Dose: Not Given Sodium Biphosphate/Sodium Phosphate (Sod Phosphate/Sod Biphosphate Enema 132 Ml Btl) 132 ml OR ONE PRN PRN Reason: Constipation Stop: 02/03/23 11:35 Umeclidinium [place] (Umeclidinium [place] 62.5mcg/Blister 7 Puffs/Inhaler) 1 puffs INH DAILY MARGO Stop: 02/08/23 12:14 Last Admin: 01/13/23 08:11 Dose: 1 puffs
[2023-01-13] MEDS: ONDANSETRON INJ 2 MG/ML 2 ML VIAL IV PRN (15:09)
[2023-01-13] MEDS: MIRTAZAPINE TAB 15 MG TAB PO SCH (20:23)
[2023-01-13] MEDS: FAMOTIDINE 40 MG TABLET PO SCH (20:24)
[2023-01-13] MEDS: DOCUSATE SODIUM/SENNA 50/8.6MG TAB PO SCH (20:24)
[2023-01-14] MEDS: MEROPENEM 500 MG in SYRINGE 0 ML IV SCH ×3 (01:12→12:26)
[2023-01-14] MEDS: oxyCODONE HCL IR 5 MG TAB (IMMEDIATE RELEASE) PO PRN ×5 (05:00→20:49)
[2023-01-14] MEDS: DOXYCYCLINE HYCLATE 100 MG in DEXTROSE 5% 100 ML IV SCH (05:00)
[2023-01-14 06:47] LABS: Hematocrit (blood only) 29.4 % (37.0-47.0); Hemoglobin 9.9 g/dl (12.0-16.0); Mean Corpuscular Hemoglobin 31.4 pg (25.0-34.0); Mean Corpuscular Hgb Conc 33.7 g/dL (32.0-36.0); Mean Corpuscular Volume 93.3 fL (80.0-100.0); Mean Platelet Volume 8.8 fL (9.4-12.4); Platelet Count 642 K/uL (130-400); RDW Coefficient of Variation 14.1 % (11.5-14.5); RDW Standard Deviation 47.8 fL (36.4-46.3); Red Blood Count 3.15 M/uL (4.20-5.40); White Blood Count 8.39 K/ul (4.8-10.8)
[2023-01-14 07:20] LABS: Basophils # (auto) 0.06 K/uL (0-0.2); Basophils % (auto) 0.7 %; Eosinophils # (auto) 0.27 K/uL (0-0.50); Eosinophils % (auto) 3.2 %; Immature Granulocytes # (auto) 0.37 K/uL (0.01-0.20); Immature Granulocytes % (auto) 4.4 %; Lymphocytes # (auto) 2.04 K/uL (1.2-3.4); Lymphocytes % (auto) 24.3 %; Monocytes # (auto) 0.81 K/uL (0.11-0.59); Monocytes % (auto) 9.7 %; Neutrophils # (auto) 4.84 K/uL (1.40-6.50); Neutrophils % (auto) 57.7 %; Polychromasia 1+
[2023-01-14 07:42] LABS: Calcium 8.3 mg/dl (8.6-10.3); Potassium 3.9 mmol/L (3.5-5.1)
[2023-01-14 07:48] LABS: BUN Creatinine Ratio 8.9 (10-20); Creatinine Clr Calc Pharmacy 157.4 ml/min; Est GFR (African American) 129.8 ml/min
[2023-01-14] MEDS: NICOTINE 14 MG/24 HR PATCH TD SCH (08:27)
[2023-01-14] MEDS: FLUTICASONE/VILANTEROL 200/25MCG 14 PUFFS/INHALER INH SCH (08:27)
[2023-01-14] MEDS: UMECLIDINIUM BROMIDE 62.5MCG/BLISTER 7 PUFFS/INHALER INH SCH (08:27)
[2023-01-14] MEDS: QUEtiapine FUMARATE 200 MG TAB PO SCH ×2 (08:28→20:10)
[2023-01-14] MEDS: METOPROLOL TARTRATE 25 MG TAB PO SCH ×2 (08:28→20:11)
[2023-01-14] MEDS: PANTOprazole 40 MG TAB PO SCH (08:28)
[2023-01-14] MEDS: GABAPENTIN 300 MG CAP PO SCH ×3 (08:28→20:11)
[2023-01-14] MEDS: CHOLESTYRAMINE LIGHT 4 GM PKT PO SCH ×4 (08:28→21:43)
[2023-01-14] MEDS: LANTUS PER UNIT CHARGE SC SCH (08:29)
[2023-01-14] MEDS: INSULIN ASPART PER UNIT CHARGE SC SCH ×4 (08:29→20:21)
[2023-01-14] MEDS ORDERED: METOPROLOL TARTRATE 25 MG TAB PO ONE (09:30)
--- NOTE | 2023-01-14 10:07 | Pharmacy Report ---
Pharmacy Glycemic Short Note 2 - Date of Service January 14, 2023 - Glycemic Short BSG Results (Last 24 hours): 01/13/23 01/13/23 01/13/23 11:27 16:46 20:36 Glucose POC Glucose 89 166 H 123 H 01/14/23 01/14/23 06:14 08:02 Glucose 138 H POC Glucose 136 H OUTPATIENT ANTIDIABETIC REGIMEN: * Metformin 500 mg PO BIDM * HbA1c: 6.1% (12/28/22) ASSESSMENT: 01/14: * Lorie received 12 units of insulin yesterday, 10 units basal + 2 units bolus. BSGs were: [phone] mg/dL. * Fasting BSG this AM was 136 mg/dL. Continue basal regimen. * Patient did not eat much yesterday. 10 grams of carbs for breakfast. * Will tighten Novolog back to previously controlled regimen and adjust goal range. 01/13: * BSGs remain well-controlled, ranging 104-138 mg/dL yesterday * Received 10 units of insulin (basal only) * Continues on meropenem and doxycycline * lunch BSG of 89 mg/dL - will loosen Novolog parameters and adjust goal range 01/11: * Patient's BSGs yesterday were [phone] mg/dL and patient received 20 units of insulin (10 units of basal and 10 units of bolus). * Fasting today is 154 mg/dL. Patient is NPO for bronch today. * Hold Lantus today due to NPO status. * Continue insulin otherwise. 01/10: * Patient's BSGs yesterday were [phone] mg/dL. Patient received 7 units of Novolog yesterday. * Fasting today is 168 mg/dL. * Start Lantus 10 units daily for BSG > 180 mg/dL. * Continue Novolog. * Continue to hold metformin as patient received contrast 01/08/23. PLAN FOR INPATIENT GLYCEMIC CONTROL: * Hold outpatient oral diabetes medications * Basal insulin * Lantus 10 units daily * Bolus insulin * NovoLog per scale ACHS or Q6hrs while NPO * Goal Range: Low 110 mg/dL - High 140 mg/dL * Correction Factor: 25 mg/dL/unit * Nutritional / Prandial insulin per carb ratio of 1 unit per 8 grams CHO consumed
--- NOTE | 2023-01-14 12:18 | Pulmonology Progress Note ---
Date of Service January 14, 2023 Assessment & Plan (1) Acute respiratory failure with hypoxia: (2) Tobacco abuse: (3) COPD with emphysema: (4) Pleural effusion: (5) Abnormal chest CT: Plan IMPRESSION: 57-year-old female who is status post lumbar fusion who developed acute hypoxic respiratory failure in the postoperative setting requiring aggressive pulmonary toilet as well as bronchoscopic evaluation for findings of multifocal infiltrative changes on CT. Patient continues to improve today and is now on 2 L nasal cannula. RECOMMENDATIONS: 1. Acute respiratory failure with hypoxia - * Likely multifactorial in the postoperative patient status post extensive lumbar surgery with anesthetic and fluid administration as well as COPD patient with unknown pulmonary function in the outpatient setting. * Has improved to the point where she is on 2 L nasal cannula. She is fine to be discharged to home on this for now. * Goal oxygen saturations between 88 and 92%. * Complete course of antibiotics. 2. COPD with emphysema - * In the setting of longstanding history of smoking. * Continue with Incruse and Breo as she is experienced clinical benefit. * Patient would benefit from formal pulmonary function testing and sleep study to be performed in the outpatient setting. * Continued nightly BiPAP and as needed for any shortness of breath issues. 3. Abnormal CT - * Patient continues to clinically improve. * Follow-up outpatient high-resolution CT scan to be performed 6 to 8 weeks postdischarge. Thank you for allowing us to participate in the care of this patient. Admission and Anticipated Discharge Date Admission Date: January 04, 2023 Supervising Physician Co-Signing Physician Notes I saw and evaluated the patient with Ronnie Ahmadi PA-C, and agree with findings and plan as documented in the note. Patient seen and examined at bedside. No acute distress, no adverse events overnight She did use her BiPAP overnight. She was saturating 94% on 1 and half liters nasal cannula at rest. Did complain of spasm in the lower back on and off. Has been having good appetite. No nausea or vomiting Constitutional: No acute distress HEENT: EOMI, PERRLA Respiratory system:Decreased air entry bilaterally, no rhonchi, no wheeze, positive crackles bilaterally posteriorly (improved from before) CVS: S1-S2 positive, no murmurs or gallops Abdomen: Soft, nontender, nondistended, positive bowel sounds x4, obese Extremities: +2 pulses bilaterally radialis/ dorsalis pedis, no cyanosis,no edema Neuro: Awake alert oriented x3 Psych: Normal mood and affect G/U:No Pride Plan: Recommend outpatient polysomnography when she goes to rehab Can de-escalate antibiotics and continued for total of 10 days Cytology is negative for malignancy or infection Micro from the BAL is negative to date Continue with Incruse and breo on discharge BiPAP nightly and as needed shortness of breath Keep O2 saturation between 88-92%. Patient will need repeat CT chest, preferably HRCT to be done in 6-8 weeks. No further recommendation from pulmonary perspective, will sign off Please call directly with any questions Case was discussed with RN at bedside and Dr Arvizu Please note the above document was generated using voice recognition software. It may contain grammatical, syntax or spelling errors.Any formal questions or concerns about the content, text or information contained within the body of th is dictation should be directly addressed to the provider for clarification. Subjective Patient seen and evaluated at bedside today. She is currently eating breakfast. She reports that her breathing continues to improve. She offers no complaints today. Review of Systems Review of Systems: A complete 6 point review of systems was reviewed with the patient with pertinent positives and negatives as per history of present illness. All else were negative. Physical Exam Physical Exam: VITAL SIGNS - Vital signs and nursing notes were reviewed. GENERAL - 57-year-old female appearing her stated age who is in no acute distress. Communicates well with provider and answers questions appropriately. MOUTH/OROPHARYNX - Without perioral cyanosis. LUNGS - Auscultation reveals decreased breath sounds at the bases. No wheezes noted. CARDIAC - RRR with S1/S2. No murmur, rubs, or gallops appreciated. ABDOMEN - Abdominal inspection demonstrates obese abdomen. BS normoactive all four quadrants. No tenderness, palpable masses, or ascites noted. PSYCH - A&Ox3 and cooperates fully with examiner. Pt is very pleasant and interacts well with examiner. Skin: no rashes, warm and dry Lymphatic: no cervical or axillary lymphadenopathy Results & Data Results & Data Vital Signs (Past 12 Hours) Vital Signs Temp Pulse Pulse Resp BP Pulse Ox O2 Del Method 01/14/23 12:00 36.8 C 93 H 18 126/85 93 Oxymask 01/14/23 09:57 Oxymask 01/14/23 08:25 37 C 102 H 18 156/89 H 94 Nasal Cannula 01/14/23 07:48 99 H 01/14/23 03:59 37.2 C 90 17 140/93 95 Oxymask 01/14/23 00:55 94 H 01/14/23 00:13 36.7 C 95 H 17 129/79 94 Oxymask O2 Flow Rate 01/14/23 12:00 2 01/14/23 09:57 1 01/14/23 08:25 2 01/14/23 07:48 01/14/23 03:59 1 01/14/23 00:55 01/14/23 00:13 1 PG Care Time/CCT Total # of Minutes Spent Total Time Spent with Patient: Total time spent is greater than 50% in coordination of care (as documented) at patient's floor/unit and/or counseling patient: Coding Level of Care Code 16573 SUB INP/OBS CARE 2/35MIN Diagnoses Acute respiratory failure with hypoxia J96.01 Tobacco abuse Z72.0 COPD with emphysema J43.9 Pleural effusion J90 Abnormal chest CT R93.89
--- NOTE | 2023-01-14 13:47 | Orthopedic Progress Note ---
Date of Service January 14, 2023 Assessment & Plan (1) Neurogenic claudication due to lumbar spinal stenosis: Plan: This time we will continue to encourage ambulation as tolerated. Discontinuing her Pride today and plan for discharge to rehab tomorrow. Admission and Anticipated Discharge Date Admission Date: January 04, 2023 Subjective Back pain controlled leg pain improved. She is ambulating the halls. Physical Exam Physical Exam: Exam she is sitting up in bed. She is comfortable. Is good strength testing. Results & Data Vital Signs (Past 12 Hours) Vital Signs Temp Pulse Pulse Resp BP Pulse Ox O2 Del Method 01/14/23 12:00 36.8 C 93 H 18 126/85 93 Oxymask 01/14/23 09:57 Oxymask 01/14/23 08:25 37 C 102 H 18 156/89 H 94 Nasal Cannula 01/14/23 07:48 99 H 01/14/23 03:59 37.2 C 90 17 140/93 95 Oxymask O2 Flow Rate 01/14/23 12:00 2 01/14/23 09:57 1 01/14/23 08:25 2 01/14/23 07:48 01/14/23 03:59 1
--- NOTE | 2023-01-14 16:03 | Hospitalist Progress Note ---
Date of Service January 14, 2023 Assessment & Plan (1) Neurogenic claudication due to lumbar spinal stenosis: (2) Fever: (3) Hypotension: (4) Acute blood loss anemia: (5) Pre-diabetes: (6) Tobacco abuse: (7) Anxiety: (8) Depression: (9) GERD (gastroesophageal reflux disease): Plan Neurogenic claudication due to lumbar spinal stenosis: - Status post L3-L5 decompression and fusion on 01/04/2023. On POD 1; patient was found to have significant hypotension and had 2 episode of fever. Started on fluid bolus and antibiotics. -Further management including DVT prophylaxis, pain, activities and diet per primary team -Back pain seems to be reasonably controlled still has some radiation of pain -Advised to continue with PT and OT as per primary -Still requiring considerable amount of narcotic pain medications to control pain -Discussed about increasing the dose of gabapentin and decreasing narcotic pain medication but the patient declined -Has been accepted to [facility] in [place] -Medically stable to be discharged tomorrow Acute hypoxic respite failure-due to pneumonia and pulm edema. Fever/abnormal CT chest- likely pulmonary source. Blood clx negative, Urine clx negative, resp biofire negative, lyme negative. Per ortho, expected post op findings in CT at surgical site. CT C/A/P 1. There is no evidence of pulmonary embolus in the main, lobar, or segmental pulmonary arteries. 2. Interlobular septal thickening suggests fluid overload/congestive failure. Correlate clinically. 3. Small pleural effusions. 4. Emphysema. 5. Multifocal groundglass consolidation is seen throughout both lungs. This could represent pulmonary edema, multifocal pneumonia, pulmonary hemorrhage, and/or ARDS. Clinical correlation will be essential. 6. There is heterogeneous enhancement of the right kidney. This is nonspecific and could be seen in the setting of pyelonephritis. There are also tiny foci of gas within the bladder lumen. Correlate with clinical findings and urinalysis. 7. There is postsurgical change from laminectomy and posterior fusion seen at L3-L5. The orthopedic hardware appears intact. 8. There is a large postoperative fluid collection seen posteriorly at the operative level which contains foci of as detailed above. This likely represents a postoperative seroma. The sterility of this fluid cannot be assessed by imaging and clinical correlation will be required. 9. A portion of this fluid collection extends into the central canal and effaces the right posterior aspect of the thecal sac at L3-L4. Correlate for evidence of clinically significant central canal compromise. 10. Left transverse process fracture of L3. 11. Hepatomegaly. 12. There is a small volume of nonspecific free fluid in the pelvis. 13. Mildly enlarged mediastinal and hilar lymph nodes are nonspecific and may be reactive. Received IV Lasix Noted to be hypotensive which resolved subsequently Was on empiric vanc/zosyn but was still spiking fever. Changed to meropenem/doxy but still with fever Appreciate pulmonary input and recommendation- recommendations noted. Plan for bronchoscopy tomorrow-n.p.o. after midnight. Autoimmune work-up in process given her CT chest findings Status post bronchoscopy on 01/11/2023-pending results Pathology came back negative for any malignancy or atypical cells but showed acute/chronic inflammation. ABBIE has been negative We will continue current management-clinically much improved and likely be discharged in a day or 2 Was not on any oxygen before and now she has been requiring up to 2 L to maintain saturation-likely to need 8 to a stable O2 saturation test prior to discharge home from the facility Antibiotic has been changed to Cefdinir 300 mg twice daily for 7 more days-She will need to continue BiPAP nightly and as needed for shortness of breath and will need repeat CT preferably HR CT in 6 to 8 weeks Diarrhea Has history of chronic diarrhea since cholecystectomy Reasonably controlled with oral cholestyramine Will restart cholestyramine from today Denies any diarrhea Hypokalemia-repleted, recheck in Potassium has been normalized Acute blood loss anemia: postsurgery Hb 13->10. H&H has been stable since then. Hemoglobin remains stable at 9.5 as of 01/11/2023 Will monitor Pre-diabetes: HA1c 6.1 12/2022. Metformin on hold. Being managed by glycemic pharmacist Tobacco abuse: Patient declined nicotine patch Anxiety/Depression: On Mirtazapine; continue GERD (gastroesophageal reflux disease): Continue PPI and H2 jeannette DVT prophylaxis: DEENA/SCD per primary team. Chemoprophylaxis deferred to primary Disposition: Per primary team. Likely discharge tomorrow Admission and Anticipated Discharge Date Admission Date: January 04, 2023 Subjective 01/11/2023 The patient was seen and examined in telemetry unit She has been feeling much better today very still requiring 4 L to maintain saturation Minimal cough, no chest pain and/or palpitation and no shortness of breath at rest 01/12/2023 The patient was seen and examined in telemetry unit She has been feeling much better and requiring 2 L of oxygen to maintain saturation Has been having diarrhea and is asking for her cholestyramine Denies any other significant symptom 01/13/2023 The patient was seen and examined in telemetry unit She has been feeling much better and saturating on 2 L at best Has had physical therapy and recommended rehab She has been accepted to [facility] To be discharged in a day or 2 01/14/2023 The patient was seen and examined in telemetry unit She remains stable Wants to go to rehab tomorrow Denies any significant symptoms Review of Systems Review of Systems: All systems reviewed and are unremarkable except as noted below Physical Exam Physical Exam: Lying in bed comfortably Constitutional: well developed, well nourished, + ill appearing and + obese Eyes: PERRL, conjunctivae normal, anicteric sclerae ENMT: external ear and nose normal, oropharynx normal Neck: trachea midline, no thyromegaly Respiratory: no respiratory distress Auscultation: + diminished lung sounds and + crackles (Bibasilar crackles) Cardiovascular: Rate/Rhythm: regular rate and regular rhythm; not tachycardic Heart Sounds: normal S1 and normal S2; no murmur Extremities: no edema Gastrointestinal (Abdomen): Inspection/Auscultation: normal bowel sounds; abdomen not distended Percussion/Palpation: abdomen soft; abdomen nontender Musculoskeletal: No acute arthritis involving any of the joint Neurologic: normal touch/pain/proprioception and moves all extremities; no focal motor deficits Lymphatic: no cervical or axillary lymphadenopathy Results & Data Results & Data Vital Signs (Past 12 Hours) Vital Signs Temp Pulse Pulse Resp BP Pulse Ox O2 Del Method 01/14/23 12:00 36.8 C 93 H 18 126/85 93 Oxymask 01/14/23 09:57 Oxymask 01/14/23 08:25 37 C 102 H 18 156/89 H 94 Nasal Cannula 01/14/23 07:48 99 H 01/14/23 03:59 37.2 C 90 17 140/93 95 Oxymask O2 Flow Rate 01/14/23 12:00 2 01/14/23 09:57 1 01/14/23 08:25 2 01/14/23 07:48 01/14/23 03:59 1 Laboratory Results Short CBC 01/14/23 Range/Units 06:14 WBC 8.39 (4.8-10.8) K/ul Hgb 9.9 L (12.0-16.0) g/dl Hct 29.4 L (37.0-47.0) % Plt Count 642 H (130-400) K/uL BMP 01/14/23 06:14 Sodium 135 L Potassium 3.9 Chloride 98 Carbon Dioxide 29 BUN 4 L Creatinine 0.45 L Glucose 138 H Calcium 8.3 L Medications Administered Current Inpatient Medications Acetaminophen (Acetaminophen 500 Mg Tab) 1,000 mg PO Q8H PRN PRN Reason: MILD Pain Scale 1,2,3 & Pre PT Stop: 02/03/23 11:35 Last Admin: 01/11/23 03:16 Dose: 1,000 mg Al Hydrox/Mg Hydrox/Simethicone (Aluminum/Magnesium Susp 30 Ml Udc) 30 ml PO Q6H PRN PRN Reason: Dyspepsia Stop: 02/03/23 11:35 Albuterol (Albuterol Hfa Inhaler 8.5 Gm) 1 puffs INH QID PRN PRN Reason: Wheezing Bisacodyl (Bisacodyl 10 Mg Supp) 10 mg OH DAILY PRN PRN Reason: Constipation Stop: 02/03/23 11:35 Cefdinir (Cefdinir 300 Mg Cap) 300 mg PO BID MARGO Stop: 01/21/23 20:59 Cholestyramine Resin (Cholestyramine Light 4 Gm Pkt) 4 gm PO QID MARGO Stop: 02/11/23 16:59 Last Admin: 01/14/23 12:21 Dose: 4 gm Cyclobenzaprine HCl (Cyclobenzaprine Hcl 10 Mg Tab) 10 mg PO Q8H PRN PRN Reason: Muscle Spasm Stop: 02/04/23 12:52 Last Admin: 01/09/23 19:17 Dose: 10 mg Dextrose (Dextrose 50% 50 Ml Syringe) 25 - 50 ml IV UD PRN; Protocol PRN Reason: Hypoglycemia Protocol Stop: 02/03/23 12:14 Diphenhydramine HCl (Diphenhydramine Capsule 25 Mg Cap) 25 mg PO Q6H PRN PRN Reason: Allergic Rhinitis/Insomnia Stop: 02/03/23 11:35 Famotidine (Famotidine 40 Mg Tablet) 40 mg PO HS MARGO Stop: 02/03/23 20:59 Last Admin: 01/13/23 20:24 Dose: 40 mg Famotidine (Famotidine 20 Mg Tab) 20 mg PO Q12H PRN PRN Reason: Dyspepsia Stop: 02/03/23 11:35 Fluticasone/Vilanterol (Fluticasone/Vilanterol 200/25mcg 14 Puffs/Inhaler) 1 puffs INH DAILY MARGO Stop: 02/04/23 08:59 Last Admin: 01/14/23 08:27 Dose: 1 puffs Gabapentin (Gabapentin 300 Mg Cap) 300 mg PO TID MARGO Stop: 02/07/23 20:59 Last Admin: 01/14/23 14:00 Dose: 300 mg Glucagon (Glucagon For Inj 1 Mg Vial) 1 mg IM UD PRN; Protocol PRN Reason: Hypoglycemia Protocol Stop: 02/03/23 12:14 Glucose (Glucose 40% Gel 15 Gm Tube) 15 - 30 gm PO UD PRN; Protocol PRN Reason: Hypoglycemia Protocol Stop: 02/03/23 12:14 Glucose (Glucose 10 Tab/Tube) 4 - 8 tab PO UD PRN; Protocol PRN Reason: Hypoglycemia Protocol Stop: 02/03/23 12:14 Hydroxyzine HCl (Hydroxyzine Hcl 25 Mg Tab) 25 mg PO Q8H PRN PRN Reason: Anxiety Stop: 02/03/23 11:35 Promethazine HCl 12.5 mg/ (Sodium Chloride) 50.5 mls @ 202 mls/hr IV Q6H PRN PRN Reason: Nausea &/or Vomiting Stop: 02/03/23 11:35 Last Infusion: 01/08/23 20:49 Dose: Infused Influenza Virus Vaccine Quadrival (Do Not Administer Flu Vaccine) 1 each N/A PRN PRN PRN Reason: Notification Stop: 02/03/23 11:35 Insulin Aspart (Insulin Aspart Per Unit Charge) 0 units SC ACHS [facility]; Protocol Stop: 02/07/23 07:29 Last Admin: 01/14/23 12:22 Dose: 3 units Insulin Glargine (Lantus Per Unit Charge) 10 units SC DAILY [facility]; Protocol Stop: 02/11/23 08:59 Last Admin: 01/14/23 08:29 Dose: 10 units Magnesium Hydroxide (Magnesium Hydroxide Susp 30 Ml Udc) 30 ml PO Q24H PRN PRN Reason: Constipation Stop: 02/03/23 11:35 Last Admin: 01/09/23 10:19 Dose: 30 ml Metoclopramide HCl (Metoclopramide Hcl Inj 5 Mg/Ml 2 Ml Vial) 10 mg IV Q6H PRN PRN Reason: Nausea &/or Vomiting Stop: 02/03/23 11:35 Last Admin: 01/12/23 08:35 Dose: 10 mg Metoprolol Tartrate (Metoprolol Tartrate 25 Mg Tab) 25 mg PO BID [facility] Stop: 02/13/23 20:59 Mirtazapine (Mirtazapine Tab 15 Mg Tab) 15 mg PO HS [facility] Stop: 02/03/23 20:59 Last Admin: 01/13/23 20:23 Dose: 15 mg Miscellaneous (Remove Nicoderm Patch) 1 each N/A DAILY@0859 [facility] Stop: 02/04/23 08:58 Last Admin: 01/14/23 08:27 Dose: Not Given Miscellaneous (Carbohydrates For Hypoglycemia ) 15 - 30 gm PO UD PRN PRN Reason: Hypoglycemia Treatment Stop: 02/03/23 12:14 Miscellaneous Information (Pharmacy Glycemic Mgmt Consult) 1 each N/A UD PRN PRN Reason: Consult Stop: 02/03/23 11:35 Naloxone HCl (Naloxone Hcl 0.4 Mg/1 Ml Vial/Carp) 0.1 mg IV Q5M PRN PRN Reason: Oversedation/Resp depression Stop: 02/03/23 11:35 Nicotine (Nicotine 14 Mg/24 Hr Patch) 14 mg TD QAM [facility] Stop: 02/03/23 09:59 Last Admin: 01/14/23 08:27 Dose: Not Given Ondansetron HCl (Ondansetron Inj 2 Mg/Ml 2 Ml Vial) 4 mg IV Q6H PRN PRN Reason: Nausea &/or Vomiting Stop: 02/03/23 11:35 Last Admin: 01/13/23 15:09 Dose: 4 mg Ondansetron HCl (Ondansetron 4 Mg Od Tab) 4 mg PO Q6H PRN PRN Reason: Nausea Stop: 02/03/23 11:35 Last Admin: 01/12/23 04:49 Dose: 4 mg Oxycodone HCl (Oxycodone Hcl Ir 5 Mg Tab (Immediate Release)) 5 - 10 mg PO Q4H PRN PRN Reason: Pain & Pre PT Stop: 01/26/23 13:10 Last Admin: 01/14/23 12:26 Dose: 10 mg Pantoprazole Sodium (Pantoprazole 40 Mg Tab) 40 mg PO QAM [facility] Stop: 02/04/23 08:59 Last Admin: 01/14/23 08:28 Dose: 40 mg Pneumococcal Polyvalent Vaccine (Do Not Administer Pneumococcal Vaccine) 1 each N/A PRN PRN PRN Reason: Notification Stop: 02/03/23 11:35 Polyethylene Glycol (Polyethylene (Miralax) 17 Gm Pack) 17 gm PO DAILY PRN PRN Reason: Constipation Stop: 02/07/23 08:59 Quetiapine Fumarate (Quetiapine Fumarate 200 Mg Tab) 200 mg PO BID [facility] Stop: 02/07/23 20:59 Last Admin: 01/14/23 08:28 Dose: 200 mg Senna/Docusate Sodium (Docusate Sodium/Senna 50/8.6mg Tab) 2 tab PO HS [facility] Stop: 02/03/23 20:59 Last Admin: 01/13/23 20:24 Dose: 2 tab Sodium Biphosphate/Sodium Phosphate (Sod Phosphate/Sod Biphosphate Enema 132 Ml Btl) 132 ml OH ONE PRN PRN Reason: Constipation Stop: 02/03/23 11:35 Umeclidinium [place] (Umeclidinium [place] 62.5mcg/Blister 7 Puffs/Inhaler) 1 puffs INH DAILY [facility] Stop: 02/08/23 12:14 Last Admin: 01/14/23 08:27 Dose: 1 puffs
[2023-01-14] MEDS: CYCLOBENZAPRINE HCL 10 MG TAB PO PRN (19:52)
[2023-01-14] MEDS: ACETAMINOPHEN 500 MG TAB PO PRN (19:52)
[2023-01-14] MEDS: CEFDINIR 300 MG CAP PO SCH (20:09)
[2023-01-14] MEDS: FAMOTIDINE 40 MG TABLET PO SCH (20:11)
[2023-01-14] MEDS: MIRTAZAPINE TAB 15 MG TAB PO SCH (20:11)
[2023-01-14] MEDS: DOCUSATE SODIUM/SENNA 50/8.6MG TAB PO SCH (20:15)
[2023-01-15] MEDS: oxyCODONE HCL IR 5 MG TAB (IMMEDIATE RELEASE) PO PRN ×2 (05:41→09:31)
[2023-01-15 08:16] VITALS: PULSE 108; TEMP 98.1; O2SAT 92
[2023-01-15] MEDS: FLUTICASONE/VILANTEROL 200/25MCG 14 PUFFS/INHALER INH SCH (08:56)
[2023-01-15] MEDS: CHOLESTYRAMINE LIGHT 4 GM PKT PO SCH ×2 (08:56→11:58)
[2023-01-15] MEDS: CEFDINIR 300 MG CAP PO SCH (08:56)
[2023-01-15] MEDS: METOPROLOL TARTRATE 25 MG TAB PO SCH (08:56)
[2023-01-15] MEDS: PANTOprazole 40 MG TAB PO SCH (08:57)
[2023-01-15] MEDS: GABAPENTIN 300 MG CAP PO SCH (08:57)
[2023-01-15] MEDS: NICOTINE 14 MG/24 HR PATCH TD SCH (08:57)
[2023-01-15] MEDS: QUEtiapine FUMARATE 200 MG TAB PO SCH (08:57)
[2023-01-15] MEDS: UMECLIDINIUM BROMIDE 62.5MCG/BLISTER 7 PUFFS/INHALER INH SCH (08:57)
[2023-01-15] MEDS: INSULIN ASPART PER UNIT CHARGE SC SCH ×2 (08:58→12:41)
[2023-01-15] MEDS: LANTUS PER UNIT CHARGE SC SCH (09:03)
[2023-01-15] MEDS: CYCLOBENZAPRINE HCL 10 MG TAB PO PRN (09:31)
--- NOTE | 2023-01-15 09:44 | Orthopedic Progress Note ---
Date of Service January 15, 2023 Assessment & Plan (1) Neurogenic claudication due to lumbar spinal stenosis: Plan: Patient is stable status post lumbar decompression and fusion. Her plan is to discharge her to rehab today to help further recovery. She is to continue ambulating regularly. We will continue with GI and DVT prophylaxis as well as pain control measures. We will see her in the office in approximately 2 weeks or sooner if develops any increased pain drainage from the incision continued fevers or chills. Admission and Anticipated Discharge Date Admission Date: January 04, 2023 Subjective Patient was seen bedside in room 456. States she is doing better today. She still has back pain and spasms. She has been up and walking. She has had no other fevers or chills. She denies any other numbness, tingling, or paresthesias. Physical Exam Physical Exam: On exam she is alert and oriented. She is in no apparent distress. Her strength and sensation are both intact her gait is stable. Abdomen soft nontender, calves are soft and nontender. Cardiovascular exam reveals no gross abnormalities. Results & Data Vital Signs (Past 12 Hours) Vital Signs Temp Pulse Pulse Pulse Resp BP Pulse Ox 01/15/23 09:39 01/15/23 08:14 36.7 C 108 H 20 151/92 H 92 01/15/23 07:08 105 H 01/15/23 03:28 36.9 C 95 H 16 139/92 91 01/14/23 23:37 81 01/14/23 23:19 36.6 C 81 22 110/75 95 01/14/23 22:35 81 12 95 O2 Del Method O2 Flow Rate 01/15/23 09:39 Room Air 01/15/23 08:14 Room Air 01/15/23 07:08 01/15/23 03:28 Oxymask 1 01/14/23 23:37 01/14/23 23:19 BiPAP 01/14/23 22:35 2
--- NOTE | 2023-01-15 11:24 | Hospitalist Progress Note ---
Date of Service January 15, 2023 Assessment & Plan (1) Neurogenic claudication due to lumbar spinal stenosis: (2) Fever: (3) Hypotension: (4) Acute blood loss anemia: (5) Pre-diabetes: (6) Tobacco abuse: (7) Anxiety: (8) Depression: (9) GERD (gastroesophageal reflux disease): Plan Neurogenic claudication due to lumbar spinal stenosis: - Status post L3-L5 decompression and fusion on 01/04/2023. On POD 1; patient was found to have significant hypotension and had 2 episode of fever. Started on fluid bolus and antibiotics. -Further management including DVT prophylaxis, pain, activities and diet per primary team -Back pain seems to be reasonably controlled still has some radiation of pain -Advised to continue with PT and OT as per primary -Still requiring considerable amount of narcotic pain medications to control pain -Discussed about increasing the dose of gabapentin and decreasing narcotic pain medication but the patient declined -Has been accepted to [facility] -Medically stable to be discharged this afternoon -Dr. Dimas's office will see her in 2 weeks for a follow-up Acute hypoxic respite failure-due to pneumonia and pulm edema. Fever/abnormal CT chest- likely pulmonary source. Blood clx negative, Urine clx negative, resp biofire negative, lyme negative. Per ortho, expected post op findings in CT at surgical site. CT C/A/P 1. There is no evidence of pulmonary embolus in the main, lobar, or segmental pulmonary arteries. 2. Interlobular septal thickening suggests fluid overload/congestive failure. Correlate clinically. 3. Small pleural effusions. 4. Emphysema. 5. Multifocal groundglass consolidation is seen throughout both lungs. This could represent pulmonary edema, multifocal pneumonia, pulmonary hemorrhage, and/or ARDS. Clinical correlation will be essential. 6. There is heterogeneous enhancement of the right kidney. This is nonspecific and could be seen in the setting of pyelonephritis. There are also tiny foci of gas within the bladder lumen. Correlate with clinical findings and urinalysis. 7. There is postsurgical change from laminectomy and posterior fusion seen at L3-L5. The orthopedic hardware appears intact. 8. There is a large postoperative fluid collection seen posteriorly at the operative level which contains foci of as detailed above. This likely represents a postoperative seroma. The sterility of this fluid cannot be assessed by imaging and clinical correlation will be required. 9. A portion of this fluid collection extends into the central canal and effaces the right posterior aspect of the thecal sac at L3-L4. Correlate for evidence of clinically significant central canal compromise. 10. Left transverse process fracture of L3. 11. Hepatomegaly. 12. There is a small volume of nonspecific free fluid in the pelvis. 13. Mildly enlarged mediastinal and hilar lymph nodes are nonspecific and may be reactive. Received IV Lasix Noted to be hypotensive which resolved subsequently Was on empiric vanc/zosyn but was still spiking fever. Changed to meropenem/doxy but still with fever Appreciate pulmonary input and recommendation- recommendations noted. Plan for bronchoscopy tomorrow-n.p.o. after midnight. Autoimmune work-up in process given her CT chest findings Status post bronchoscopy on 01/11/2023-pending results Pathology came back negative for any malignancy or atypical cells but showed acute/chronic inflammation. ABBIE has been negative We will continue current management-clinically much improved and likely be discharged in a day or 2 Was not on any oxygen before and now she has been requiring up to 2 L to main tain saturation-likely to need 8 to a stable O2 saturation test prior to discharge home from the facility Antibiotic has been changed to Cefdinir 300 mg twice daily for 7 more days-She will need to continue BiPAP nightly and as needed for shortness of breath and will need repeat CT preferably HR CT in 6 to 8 weeks Denies any more respiratory symptoms Diarrhea Has history of chronic diarrhea since cholecystectomy Reasonably controlled with oral cholestyramine Will restart cholestyramine from today Denies any diarrhea Hypokalemia-repleted, recheck in Potassium has been normalized Acute blood loss anemia: postsurgery Hb 13->10. H&H has been stable since then. Hemoglobin remains stable at 9.5 as of 01/11/2023 Will monitor-hemoglobin remains stable at 9.9 as of 01/15/2023 Pre-diabetes: HA1c 6.1 12/2022. Metformin on hold. Being managed by glycemic pharmacist Tobacco abuse: Patient declined nicotine patch Anxiety/Depression: On Mirtazapine; continue GERD (gastroesophageal reflux disease): Continue PPI and H2 jeannette DVT prophylaxis: DEENA/SCD per primary team. Chemoprophylaxis deferred to primary Disposition: Per primary team. She will be to [facility] in [place] this afternoon Admission and Anticipated Discharge Date Admission Date: January 04, 2023 Subjective 01/11/2023 The patient was seen and examined in telemetry unit She has been feeling much better today very still requiring 4 L to maintain saturation Minimal cough, no chest pain and/or palpitation and no shortness of breath at rest 01/12/2023 The patient was seen and examined in telemetry unit She has been feeling much better and requiring 2 L of oxygen to maintain saturation Has been having diarrhea and is asking for her cholestyramine Denies any other significant symptom 01/13/2023 The patient was seen and examined in telemetry unit She has been feeling much better and saturating on 2 L at best Has had physical therapy and recommended rehab She has been accepted to [facility] To be discharged in a day or 2 01/14/2023 The patient was seen and examined in telemetry unit She remains stable Wants to go to rehab tomorrow Denies any significant symptoms 01/15/2023 The patient was seen and examined in telemetry unit She has been ambulating with the therapist and denies any symptoms She has been saturating on room air and did not drop her saturation while physical therapy Discharge to rehab this afternoon Review of Systems Review of Systems: All systems reviewed and are unremarkable except as noted below Physical Exam Physical Exam: Lying in bed comfortably Constitutional: well developed, well nourished, + ill appearing and + obese Eyes: PERRL, conjunctivae normal, anicteric sclerae ENMT: external ear and nose normal, oropharynx normal Neck: trachea midline, no thyromegaly Respiratory: no respiratory distress Auscultation: + diminished lung sounds and + crackles (Bibasilar crackles) Cardiovascular: Rate/Rhythm: regular rate and regular rhythm; not tachycardic Heart Sounds: normal S1 and normal S2; no murmur Extremities: no edema Gastrointestinal (Abdomen): Inspection/Auscultation: normal bowel sounds; ab domen not distended Percussion/Palpation: abdomen soft; abdomen nontender Musculoskeletal: Lower back tenderness but no acute arthritis involving any of the joint Neurologic: normal touch/pain/proprioception and moves all extremities; no focal motor deficits Psychiatric: A+Ox3, euthymic affect Lymphatic: no cervical or axillary lymphadenopathy Results & Data Results & Data Vital Signs (Past 12 Hours) Vital Signs Temp Pulse Pulse Pulse Resp BP Pulse Ox 01/15/23 09:39 01/15/23 08:14 36.7 C 108 H 20 151/92 H 92 01/15/23 07:08 105 H 01/15/23 03:28 36.9 C 95 H 16 139/92 91 01/14/23 23:37 81 O2 Del Method O2 Flow Rate 01/15/23 09:39 Room Air 01/15/23 08:14 Room Air 01/15/23 07:08 01/15/23 03:28 Oxymask 1 01/14/23 23:37 Medications Administered Current Inpatient Medications Acetaminophen (Acetaminophen 500 Mg Tab) 1,000 mg PO Q8H PRN PRN Reason: MILD Pain Scale 1,2,3 & Pre PT Stop: 02/03/23 11:35 Last Admin: 01/14/23 19:52 Dose: 1,000 mg Al Hydrox/Mg Hydrox/Simethicone (Aluminum/Magnesium Susp 30 Ml Udc) 30 ml PO Q6H PRN PRN Reason: Dyspepsia Stop: 02/03/23 11:35 Albuterol (Albuterol Hfa Inhaler 8.5 Gm) 1 puffs INH QID PRN PRN Reason: Wheezing Bisacodyl (Bisacodyl 10 Mg Supp) 10 mg TX DAILY PRN PRN Reason: Constipation Stop: 02/03/23 11:35 Cefdinir (Cefdinir 300 Mg Cap) 300 mg PO BID [facility] Stop: 01/21/23 20:59 Last Admin: 01/15/23 08:56 Dose: 300 mg Cholestyramine Resin (Cholestyramine Light 4 Gm Pkt) 4 gm PO QID [facility] Stop: 02/11/23 16:59 Last Admin: 01/15/23 08:56 Dose: 4 gm Cyclobenzaprine HCl (Cyclobenzaprine Hcl 10 Mg Tab) 10 mg PO Q8H PRN PRN Reason: Muscle Spasm Stop: 02/04/23 12:52 Last Admin: 01/15/23 09:31 Dose: 10 mg Dextrose (Dextrose 50% 50 Ml Syringe) 25 - 50 ml IV UD PRN; Protocol PRN Reason: Hypoglycemia Protocol Stop: 02/03/23 12:14 Diphenhydramine HCl (Diphenhydramine Capsule 25 Mg Cap) 25 mg PO Q6H PRN PRN Reason: Allergic Rhinitis/Insomnia Stop: 02/03/23 11:35 Famotidine (Famotidine 40 Mg Tablet) 40 mg PO HS [facility] Stop: 02/03/23 20:59 Last Admin: 01/14/23 20:11 Dose: 40 mg Famotidine (Famotidine 20 Mg Tab) 20 mg PO Q12H PRN PRN Reason: Dyspepsia Stop: 02/03/23 11:35 Fluticasone/Vilanterol (Fluticasone/Vilanterol 200/25mcg 14 Puffs/Inhaler) 1 puffs INH DAILY [facility] Stop: 02/04/23 08:59 Last Admin: 01/15/23 08:56 Dose: 1 puffs Gabapentin (Gabapentin 300 Mg Cap) 300 mg PO TID [facility] Stop: 02/07/23 20:59 Last Admin: 01/15/23 08:57 Dose: 300 mg Glucagon (Glucagon For Inj 1 Mg Vial) 1 mg IM UD PRN; Protocol PRN Reason: Hypoglycemia Protocol Stop: 02/03/23 12:14 Glucose (Glucose 40% Gel 15 Gm Tube) 15 - 30 gm PO UD PRN; Protocol PRN Reason: Hypoglycemia Protocol Stop: 02/03/23 12:14 Glucose (Glucose 10 Tab/Tube) 4 - 8 tab PO UD PRN; Protocol PRN Reason: Hypoglycemia Protocol Stop: 02/03/23 12:14 Hydroxyzine HCl (Hydroxyzine Hcl 25 Mg Tab) 25 mg PO Q8H PRN PRN Reason: Anxiety Stop: 02/03/23 11:35 Promethazine HCl 12.5 mg/ (Sodium Chloride) 50.5 mls @ 202 mls/hr IV Q6H PRN PRN Reason: Nausea &/or Vomiting Stop: 02/03/23 11:35 Last Infusion: 01/08/23 20:49 Dose: Infused Influenza Virus Vaccine Quadrival (Do Not Administer Flu Vaccine) 1 each N/A PRN PRN PRN Reason: Notification Stop: 02/03/23 11:35 Insulin Aspart (Insulin Aspart Per Unit Charge) 0 units SC ACHS [facility]; Protocol Stop: 02/07/23 07:29 Last Admin: 01/15/23 08:58 Dose: Not Given Insulin Glargine (Lantus Per Unit Charge) 10 units SC DAILY [facility]; Protocol Stop: 02/11/23 08:59 Last Admin: 01/15/23 09:03 Dose: 10 units Magnesium Hydroxide (Magnesium Hydroxide Susp 30 Ml Udc) 30 ml PO Q24H PRN PRN Reason: Constipation Stop: 02/03/23 11:35 Last Admin: 01/09/23 10:19 Dose: 30 ml Metoclopramide HCl (Metoclopramide Hcl Inj 5 Mg/Ml 2 Ml Vial) 10 mg IV Q6H PRN PRN Reason: Nausea &/or Vomiting Stop: 02/03/23 11:35 Last Admin: 01/12/23 08:35 Dose: 10 mg Metoprolol Tartrate (Metoprolol Tartrate 25 Mg Tab) 25 mg PO BID [facility] Stop: 02/13/23 20:59 Last Admin: 01/15/23 08:56 Dose: 25 mg Mirtazapine (Mirtazapine Tab 15 Mg Tab) 15 mg PO HS [facility] Stop: 02/03/23 20:59 Last Admin: 01/14/23 20:11 Dose: 15 mg Miscellaneous (Remove Nicoderm Patch) 1 each N/A DAILY@0859 [facility] Stop: 02/04/23 08:58 Last Admin: 01/15/23 08:57 Dose: Not Given Miscellaneous (Carbohydrates For Hypoglycemia ) 15 - 30 gm PO UD PRN PRN Reason: Hypoglycemia Treatment Stop: 02/03/23 12:14 Miscellaneous Information (Pharmacy Glycemic Mgmt Consult) 1 each N/A UD PRN PRN Reason: Consult Stop: 02/03/23 11:35 Naloxone HCl (Naloxone Hcl 0.4 Mg/1 Ml Vial/Carp) 0.1 mg IV Q5M PRN PRN Reason: Oversedation/Resp depression Stop: 02/03/23 11:35 Nicotine (Nicotine 14 Mg/24 Hr Patch) 14 mg TD QAM [facility] Stop: 02/03/23 09:59 Last Admin: 01/15/23 08:57 Dose: Not Given Ondansetron HCl (Ondansetron Inj 2 Mg/Ml 2 Ml Vial) 4 mg IV Q6H PRN PRN Reason: Nausea &/or Vomiting Stop: 02/03/23 11:35 Last Admin: 01/13/23 15:09 Dose: 4 mg Ondansetron HCl (Ondansetron 4 Mg Od Tab) 4 mg PO Q6H PRN PRN Reason: Nausea Stop: 02/03/23 11:35 Last Admin: 01/12/23 04:49 Dose: 4 mg Oxycodone HCl (Oxycodone Hcl Ir 5 Mg Tab (Immediate Release)) 5 - 10 mg PO Q4H PRN PRN Reason: Pain & Pre PT Stop: 01/26/23 13:10 Last Admin: 01/15/23 09:31 Dose: 10 mg Pantoprazole Sodium (Pantoprazole 40 Mg Tab) 40 mg PO QAM [facility] Stop: 02/04/23 08:59 Last Admin: 01/15/23 08:57 Dose: 40 mg Pneumococcal Polyvalent Vaccine (Do Not Administer Pneumococcal Vaccine) 1 each N/A PRN PRN PRN Reason: Notification Stop: 02/03/23 11:35 Polyethylene Glycol (Polyethylene (Miralax) 17 Gm Pack) 17 gm PO DAILY PRN PRN Reason: Constipation Stop: 02/07/23 08:59 Quetiapine Fumarate (Quetiapine Fumarate 200 Mg Tab) 200 mg PO BID [facility] Stop: 02/07/23 20:59 Last Admin: 01/15/23 08:57 Dose: 200 mg Senna/Docusate Sodium (Docusate Sodium/Senna 50/8.6mg Tab) 2 tab PO HS [facility] Stop: 02/03/23 20:59 Last Admin: 01/14/23 20:15 Dose: 2 tab Sodium Biphosphate/Sodium Phosphate (Sod Phosphate/Sod Biphosphate Enema 132 Ml Btl) 132 ml TX ONE PRN PRN Reason: Constipation Stop: 02/03/23 11:35 Umeclidinium Eustis (Umeclidinium Eustis 62.5mcg/Blister 7 Puffs/Inhaler) 1 puffs INH DAILY [facility] Stop: 02/08/23 12:14 Last Admin: 01/15/23 08:57 Dose: 1 puffs
[2023-01-15 12:36] VITALS: BP 135/70
[2023-01-15 14:17] LABS: Pneumocystis jirovecii PCRQual NOT DETECTED; Pneumocystis jirovecii Source BRONCHIAL LAVAGE
[2023-01-16 01:57] LABS: Anti-SS-A 5.0 POS AI (<1.0 NEG); Anti-SS-B <1.0 NEG AI (<1.0 NEG); Cyclic Citrullinated Pep IgG <16 UNITS; Rheumatoid Factor <14 IU/mL (<14)
--- NOTE | 2023-01-17 10:44 | Discharge Summary ---
Date of Service January 17, 2023 Admission HPI Per Admitting Provider This is a 57-year-old female who presents with chronic persistent back and leg pain after failing course of nonoperative care she is here for surgical intervention. Principal Diagnosis Lumbar spinal stenosis with neurogenic claudication Discharge Data Allergies Allergy/AdvReac Type Severity Reaction Status Date / Time aspirin Allergy Intermediate eyes Verified 01/04/23 06:36 swell/ hives morphine Allergy Intermediate itching Verified 01/04/23 06:36 Consultations 01/04/23 11:36 Consult Hospitalist Routine 01/09/23 09:08 Consult Pulmonology Routine Procedures Performed Operation Date: 01/11/23 08:00 Actual Procedures p Bronchoscopy Radiology - [facility] Ordered Studies 01/04/23 07:45 [place] lumbar spine 2-3V Routine 01/08/23 17:19 CT angio chest PE protocol Routine 01/08/23 17:21 CT abd pelvis IV con only Routine Hospital Course (1) Neurogenic claudication due to lumbar spinal stenosis: Patient underwent multilevel lumbar decompression fusion tolerated procedure well but unfortunately postoperatively had significant issues with her lungs ultimately developing acute respiratory distress and infection. She was monitored over the course of several days ultimately undergoing a bronchoscopy. She steadily improved and was up and ambulate in the halls consistently with good strength testing extremities. When she was stable she was subsequently discharged to rehab. Discharge orders instructions found in chart for further review. Total Time Total Time Spent Total Time Spent (In Minutes): 20 minutes Discharge Plan Discharge Items Patient Disposition: Transfer Inpatient Rehab Fac Reason For Visit: Spinal Stenosis Lumbar Region with Neurogenic Melinda Discharge Diagnosis: lumbar stenosis Activity: Per Instructions section Non-emergency contact: Primary Care Provider Call non-emergency contact if: you have any medication questions Follow-up/Referrals: PCP,NO [Primary Care Provider] - (Please make an appointment with your PCP within 7 days following discharge from the facility) Diet: Regular Addtl Attending Provider Instructions: ACTIVITY RECOMMENDATIONS: SELF CARE INSTRUCTIONS AFTER THORACIC/LUMBAR FUSIONS 1. You may walk to your tolerance. It is good exercise for your legs and back. Expect some back and intermittent leg aches and pains. 2. You may perform "counter-top" level activities (make a sandwich, irving with a project, etc.). 3. No bending or lifting of more than 10 pounds or back twisting of any nature (roll like a log when turning in bed). 4. You may ride in a car for 20-30 minutes at a time. No driving until after your first visit with your doctor. 5. Frequent changes of position and restricting sitting to 30 minutes at a time will help limit the amount of back spasms and stiffness you may experience. 6. You may discontinue the use of ambulatory aids (cane, crutches, etc.) once your strength and confidence allow. 7. You may production welding supervisor the shower and let water strike your incision when you arrive home at least once daily. Do not take a tub bath, sit in a hot tub or go into a swimming pool until after your first recheck in the office. SPECIAL CARE INSTRUCTIONS: VERY IMPORTANT TO READ AND REVIEW A. Your surgical incision has been closed with a cosmetic suture under the skin that will dissolve in about 6 weeks. In 14 days, you can use a pair of clean scissors and cut the suture that is left outside of the skin at the ends of your incision. 1. The small skin tapes can be removed 7 days after surgery if they have not fallen off by that point. 2. You may keep the wound open to air as much as possible to promote healing after post-op day number 5 unless told otherwise by your doctor. 3. If you think the wound looks like it is becoming infected (redness or worsening drainage) and/or you are experiencing fever, chill or worsening back pain and muscle spasms, contact the office so that we may evaluate you as soon as possible. B. Complications are uncommon, but please contact us if you have any signs or symptoms of: 1. wound infection (fever higher than 102.5 degrees F, redness, separation of wound, drainage, or increasing pain from the incision) 2. blood clots in legs (pain, swelling, redness and warmth in legs) 3. urinary tract infection (fever higher than 102.5 degrees F, burning upon urination or increased frequency of urination) 4. nerve problems (inability to walk on your toes or heels, numbness, loss of bowel or bladder control) 5. any other symptoms that concern you C. Please call the office at if you have any concerns or questions about your operation or recovery. D. No smoking! Smoking drastically decreases the chance of a solid fusion. E. Do not take any anti-inflammatory medications (Indocin, Advil, Motrin, Aspirin, Naprosyn, etc.) as these may inhibit the chance of a solid fusion. Tylenol is okay to take for pain. MANAGING PAIN AFTER SPINAL SURGERY 1. Narcotic medication is intended for short-term use and will be provided for surgical pain. Surgical pain usually lasts for a period of 4-6 weeks. Narcotic medication includes Percocet, Vicodin, Darvocet, Tylenol #3 or Lortab. 2. Longer-term pain is more appropriately treated with non-narcotic medication such as Tylenol ES. 3. Muscle spasm is not appropriately treated with narcotics. Muscle relaxers such as Soma, Flexeril or Skelaxin can be used along with Tylenol ES. 4. Remember that we all live with some "aches and pains". This is not unusual or uncommon after an injury or as we get older. a. Back pain is expected and may include muscle spasms for 4 to 6 weeks after surgery. The pain should gradually improve. If the pain worsens for no apparent reason, please contact the office. b. Intermittent leg pain may also be experienced and should not be concerned about unless it worsens for no apparent reason. If so, please contact the office. 5. We will provide appropriate medication within the normal guidelines of their prescribed use. We will also be very cautious and aware of potential abuse and extended duration of patients' medication needs. a. Pain medications are for your comfort and to assist with sleep and rest so that the tissue can heal. They are not provided in order to return to normal activity and should not be used through the day. To do so or worsening pain at night can result from ongoing tissue damage and development of tolerance to the prescribed medicine. 6. Please allow 2-3 days to process refills. Prescriptions will not be mailed but must be picked up at the office. FOLLOW UP VISIT: Keep your scheduled follow-up appointment. Any questions, please call the office at . Addtl [place] Provider Instructions: Please make an appointment with your PCP within 7 days following discharge from the facility You will need to use BiPAP at nighttime and during the day when you are short of breath You will need to have a repeat HRCT in about 6 to 8 weeks Please get an appointment with economist research assistant as an outpatient following discharge from the facility Pending Studies at Discharge: No Stand-Alone Forms: My [facility] ZO[employer] TV, Smoking Cessation Skilled Items Patient informed of condition?: Yes DNR: No Discharge Level of Care: Acute rehab Communicable Disease: No Discharge Prognosis: Improving Lines: None Urinary Catheter: No Medications and DC Order Prescriptions: New cyclobenzaprine 10 mg Tablet 10 mg PO Q8H PRN (Reason: muscle spasm) 15 Days Qty: 30 0RF cefdinir 300 mg Capsule 300 mg PO BID 3 Days Qty: 6 0RF cholestyramine-aspartame [Prevalite] 4 gram Powder In Packet 4 g PO QID Qty: 60 0RF Incruse Ellipta 62.5 mcg/actuation Blister With Device 1 puff inhalation DAILY 30 Days Qty: 1 0RF doxycycline hyclate 100 mg tablet 100 mg PO BID 3 Days Qty: 6 0RF Continued lisinopril 20 mg Tablet 20 mg PO QAM famotidine 40 mg Tablet 40 mg PO HS atenolol 25 mg Tablet 25 mg PO BID hydrocodone-acetaminophen 10-325 mg Tablet 0.5 tab PO Q6H omeprazole 40 mg Capsule,Delayed Release(Dr/Ec) 40 mg PO QAM gabapentin 800 mg Tablet 800 mg PO QID quetiapine [Seroquel] 400 mg Tablet 400 mg PO TID mirtazapine 15 mg Tablet 15 mg PO HS zolpidem [Ambien] 10 mg Tablet 10 mg PO HS cholestyramine (with sugar) 4 gram Powder 4 g PO QID Rx Instructions: administer w/meal; avoid other meds within 1hr before or 4-6hr after dose fluticasone furoate-vilanterol [Breo Ellipta] 200-25 mcg/dose Blister With Device 1 inh INHALATION DAILY albuterol sulfate 90 mcg/actuation Aerosol Powdr Breath Activated 1 inh INHALATION QID PRN (Reason: Wheezing) metformin 500 mg Tablet 500 mg PO BID Discharge Orders: Discharge Order (Routine); Ordered 01/15/23 Ordered By: David Dimas Admission Data Admit Date/Time: 01/04/23 09:50 Attending Provider: David Dimas Admit Provider: David Dimas Primary Care Provider: PCP,NO Other Providers: Jacinda Hernandez ; Santana Acsota ; Kristofer Dolan ; Jerome Arvizu Other Interventions: Discharge Summary Assessment (RN) Last Done: 01/15/23 12:34
== END 2023-01-15 13:10 | DRG 453 ==
LOC: ASU 06:01 → 3E 09:50 → 4W 01-05 17:01
DX: K52.89 Other specified noninfective gastroenteritis and colitis; Z79.84 Long term (current) use of oral hypoglycemic drugs; J90 Pleural effusion, not elsewhere classified; J81.1 Chronic pulmonary edema; I95.9 Hypotension, unspecified; J18.9 Pneumonia, unspecified organism; R73.03 Prediabetes; Z79.899 Other long term (current) drug therapy; E87.6 Hypokalemia; Z88.5 Allergy status to narcotic agent; Z20.822 Contact with and (suspected) exposure to COVID-19; D62 Acute posthemorrhagic anemia; F41.8 Other specified anxiety disorders; K21.9 Gastro-esophageal reflux disease without esophagitis; F17.210 Nicotine dependence, cigarettes, uncomplicated; J96.01 Acute respiratory failure with hypoxia; Z88.6 Allergy status to analgesic agent; M48.062 Spinal stenosis, lumbar region with neurogenic claudication; J43.9 Emphysema, unspecified